=== PATIENT | female | born 1965 | race American Indian/Alaskan Native ===

== ENCOUNTER 2018-02-12 14:47 | Inpatient (IN) | payer OTHER ==
--- NOTE | 2018-02-12 15:12 | C.PDOC ---
History Of Present Illness POOR HISTORIAN 52-YEAR-OLD FEMALE, PRESENTS TO THE EMERGENCY DEPARTMENT WITH COMPLAINTS OF NEW ONSET HEMETEMESIS SINCE THIS MORNING. +BRB HO "FLUID IN MY STOMACH" SP DRAINAGE @ [facility] [place] "SOMETIME THIS MONTH". HO R LEG DVT, +ANTICOAG. CO PERSIST NAUSEA. DENIES PRIOR HO GI BLEED. ESRD S/P HD 02/10 ROS LIMITED EXAM MOD DIST NONTOXIC HEENT NO PALLOR ABD NEG EXT CHRONIC R LEG SWELLING; L FOOT TRANSMETATARSAL AMPUTATION REMAINDER NEG Time Seen by Provider: 02/12/18 15:01 History Per: Patient History/Exam Limitations: clinical condition Current Symptoms Are (Timing): Still Present Past Medical History Reviewed: Historical Data, Nursing Documentation, Vital Signs Vital Signs: Last Vital Signs Temp 98 F 02/12/18 15:01 Pulse 83 02/12/18 15:01 Resp 18 02/12/18 15:01 BP 207/77 H 02/12/18 15:01 Pulse Ox 98 02/12/18 15:01 Family History: States: No Known Family Hx Review Of Systems Review Of Systems: ROS cannot be obtained secondary to pt's inabilty to answer questions. Physical Exam - Physical Exam Appears: Non-toxic, In Acute Distress (MOD DIST) Skin: Warm, Dry, No Pale Head: Atraumatic, Normacephalic Eye(s): bilateral: Normal Inspection, PERRL Nose: Normal Lips: Normal Appearing Neck: Normal ROM Chest: Symmetrical Cardiovascular: Rhythm Regular, No Murmur Respiratory: Normal Breath Sounds, No Accessory Muscle Use Gastrointestinal/Abdominal: Soft, No Tenderness, No Organomegaly, No Mass, No Distention, No Guarding, No Rebound Extremity: No Pedal Edema, No Deformity, Other ( CHRONIC R LEG SWELLING; L FOOT TRANSMETATARSAL AMPUTATION) Pulses: Left Dorsalis Pedis: Normal, Right Dorsalis Pedis: Normal Neurological/Psych: Oriented x3, Normal Speech ED Course And Treatment - Laboratory Results Result Diagrams: 02/12/18 16:18 02/12/18 16:18 Progress - Re-Evaluation Re-evaluation Note: 02/12/18 15:10 d/w dr yakov berg AWARE OF ER FINDINGS WILL ADMIT. LABS PENDING. 02/12/18 16:28 NO RECUR GI BLEED SINCE PRIOR EVAL. CO BREAKTHROUGH PAIN, DUE TO METHADONE. VSS. - Data Reviewed Data Reviewed: Lab, Diagnostic imaging, EKG, Old records Disposition Counseled Patient/Family Regarding: Studies Performed, Diagnosis - Disposition Disposition: HOSPITALIZED Disposition Time: 17:03 Condition: STABLE - POA Present On Arrival: None - Clinical Impression Clinical Impression: Gastrointestinal hemorrhage, ESRD (end stage renal disease) - Scribe Statement The provider has reviewed the documentation as recorded by the Scribe (Raphael Casey) All medical record entries made by the Scribe were at my direction and personally dictated by me. I have reviewed the chart and agree that the record accurately reflects my personal performance of the history, physical exam, medical decision making, and the department course for this patient. I have also personally directed, reviewed, and agree with the discharge instructions and disposition. Decision To Admit - Pt Status Changed To: Hospital Disposition Of: Inpatient - Admit Certification Admit to Inpatient:: After my assessment, the patient will require hospitalization for at least two midnights. This is because of the severity of symptoms shown, intensity of services needed, and/or the medical risk in this patient being treated as an outpatient. - InPatient: Physician Admission Certification: I certify that this patient requires 2 or more midnights of care for the following reason:: SEE NOTE - . Bed Request Type: Telemetry Admitting Physician: Jenna Berg Patient Diagnosis: Gastrointestinal hemorrhage, ESRD (end stage renal disease)
[2018-02-12] MEDS ORDERED: Pantoprazole 80 MG in Sodium Chloride 0.9% 100 ML IV STA (15:16)
[2018-02-12 16:22] LABS: BASO % 0.3 % (0.0-2.0); EOS % 0.1 % (0.0-4.0); HEMOGLOBIN 10.1 g/dL (11.0-16.0); LYMPH # 0.8 K/uL (1.0-4.3); LYMPH % 8.3 % (20.0-40.0); MEAN CELL VOLUME 94.6 fL (81.0-99.0); MEAN CORPUSCULAR HEMOGLOBIN 30.7 pg (27.0-31.0); MEAN CORPUSCULAR HGB CONC 32.5 g/dL (33.0-37.0); MEAN PLATELET VOLUME 7.6 fL (7.2-11.7); MONO # 0.4 K/uL (0.0-0.8); MONO % 4.2 % (0.0-10.0); NEUT # 8.6 K/uL (1.8-7.0); NEUT % 87.1 % (50.0-75.0); NRBC % 0.3 % (0.0-2.0); PLATELET COUNT 295 K/uL (130-400); RBC 3.28 Mil/uL (3.80-5.20); WHITE BLOOD COUNT 9.9 K/uL (4.8-10.8)
[2018-02-12 16:35] LABS: ALB/GLOB RATIO 0.9 (1.0-2.1); CALCIUM 9.1 mg/dl (8.6-10.4)
[2018-02-12 17:12] LABS: BANDS 1 % (0-2); LYMPHOCYTE 8 % (20-40); MONOCYTE 1 % (0-10); NEUTROPHIL 90 % (50-75); PLATELET ESTIMATE NORMAL (NORMAL); TOTAL CELLS COUNTED 100
[2018-02-12 17:14] LABS: MICROCYTOSIS SLIGHT; POLYCHROMIC SLIGHT
[2018-02-12 17:15] LABS: HYPOCHROMIC SLIGHT
[2018-02-12] MEDS ORDERED: Labetalol 25mg/5ml Syringe IVP STA (17:47)
[2018-02-12] MEDS ORDERED: Morphine 4 MG/ML VIAL ONE (17:53)
[2018-02-12] MEDS ORDERED: Labetalol 25mg/5ml Syringe ONE (17:53)
--- NOTE | 2018-02-12 17:57 | RAD ---
PROCEDURE: CHEST RADIOGRAPH, 1 VIEW HISTORY: GI Bleeding COMPARISON: None available. FINDINGS: LUNGS: Mixed alveolar and interstitial infiltrates are identified bilaterally with alveolitis is suspected at the medial right base. No definite left-sided alveolitis. Interstitial markings are diffusely increased as well. PLEURA: No pneumothorax bilaterally. Trace right pleural effusion suggested. No left pleural effusion. CARDIOVASCULAR: Post CABG changes suggestive with cardiac size upper limits normal. Pulmonary vascular congestion is suspected and CHF is felt to present. OSSEOUS STRUCTURES: No significant abnormalities. VISUALIZED UPPER ABDOMEN: Normal. OTHER FINDINGS: None. IMPRESSION: Findings suspicious for active CHF with medial basilar alveolitis in question at the right base. Trace right pleural effusion suggested.
--- NOTE | 2018-02-12 18:38 | CP.PCM.HP ---
Past Patient History - Past Social History Smoking Status: Current Some Days Smoker - CARDIAC Hx Heart Attack: Yes Hx Hypertension: Yes Hx Peripheral Vascular Disease: Yes - PULMONARY Hx Chronic Obstructive Pulmonary Disease (COPD): Yes - RENAL Type of Dialysis Access: left hand fistula Date of Last Dialysis Treatment: 02/10/18 - ENDOCRINE/METABOLIC Hx Diabetes Mellitus Type 1: Yes - MUSCULOSKELETAL/RHEUMATOLOGICAL Hx Osteomyelitis: Yes - GASTROINTESTINAL Hx Gastroesophageal Reflux: Yes - PSYCHIATRIC Hx Substance Use: Yes - SURGICAL HISTORY Hx Amputation: Yes Other/Comment: left toes amputation - ANESTHESIA Hx Anesthesia: Yes Hx Anesthesia Reactions: No Hx Malignant Hyperthermia: No Meds Allergies/Adverse Reactions: Allergies Allergy/AdvReac Type Severity Reaction Status Date / Time No Known Allergies Allergy Unverified 02/12/18 15:13 Physical Exam - Constitutional Appears: Well - Head Exam Head Exam: ATRAUMATIC, NORMAL INSPECTION, NORMOCEPHALIC - Eye Exam Eye Exam: EOMI, Normal appearance, PERRL Pupil Exam: NORMAL ACCOMODATION, PERRL - ENT Exam ENT Exam: Mucous Membranes Moist, Normal Exam - Neck Exam Neck exam: Positive for: Normal Inspection - Respiratory Exam Respiratory Exam: Decreased Breath Sounds - Cardiovascular Exam Cardiovascular Exam: REGULAR RHYTHM, +S1, +S2 - GI/Abdominal Exam GI & Abdominal Exam: Diminished Bowel Sounds, Soft - Rectal Exam Rectal Exam: Deferred Results - Vital Signs Recent Vital Signs: Last Vital Signs Temp 98 F 02/12/18 17:58 Pulse 87 02/12/18 17:58 Resp 18 02/12/18 17:58 BP 202/85 H 02/12/18 17:58 Pulse Ox 98 02/12/18 17:58 - Labs Result Diagrams: 02/12/18 16:18 02/12/18 16:18 Labs: Laboratory Results - last 24 hr 02/12/18 02/12/18 02/12/18 14:52 16:18 16:18 WBC 9.9 RBC 3.28 L Hgb 10.1 L Hct 31.1 L MCV 94.6 MCH 30.7 MCHC 32.5 L RDW 20.0 H Plt Count 295 MPV 7.6 Neut % (Auto) 87.1 H Lymph % (Auto) 8.3 L [place] % (Auto) 4.2 Eos % (Auto) 0.1 Baso % (Auto) 0.3 Neut # (Auto) 8.6 H Lymph # (Auto) 0.8 L [place] # (Auto) 0.4 Eos # (Auto) 0.0 Baso # (Auto) 0.0 Neutrophils % (Manual) 90 H Band Neutrophils % 1 Lymphocytes % (Manual) 8 L Monocytes % (Manual) 1 Platelet Estimate Normal Polychromasia Slight Hypochromasia (manual) Slight Microcytosis (manual) Slight PT 11.0 INR 1.0 APTT 41 H Sodium Potassium Chloride Carbon Dioxide Anion Gap BUN Creatinine Est GFR ( Amer) Est GFR (Non-Af Amer) POC Glucose (mg/dL) 135 H Random Glucose Calcium Total Bilirubin AST ALT Alkaline Phosphatase Total Protein Albumin Globulin Albumin/Globulin Ratio Blood Type Antibody Screen 02/12/18 02/12/18 16:18 16:18 WBC RBC Hgb Hct MCV MCH MCHC RDW Plt Count MPV Neut % (Auto) Lymph % (Auto) [place] % (Auto) Eos % (Auto) Baso % (Auto) Neut # (Auto) Lymph # (Auto) [place] # (Auto) Eos # (Auto) Baso # (Auto) Neutrophils % (Manual) Band Neutrophils % Lymphocytes % (Manual) Monocytes % (Manual) Platelet Estimate Polychromasia Hypochromasia (manual) Microcytosis (manual) PT INR APTT Sodium 140 Potassium 5.4 H Chloride 94 L Carbon Dioxide 29 Anion Gap 22 H BUN 55 H Creatinine 7.1 H Est GFR ( Amer) 7 Est GFR (Non-Af Amer) 6 POC Glucose (mg/dL) Random Glucose 144 H Calcium 9.1 Total Bilirubin 0.7 AST 33 ALT 18 Alkaline Phosphatase 240 H Total Protein 8.5 H Albumin 4.0 Globulin 4.5 H Albumin/Globulin Ratio 0.9 L Blood Type O POSITIVE Antibody Screen Negative
[2018-02-12] MEDS ORDERED: Albuterol-Ipratrop 3 mg / 0.5 (3 ml) UD IH PRN (19:49)
[2018-02-12] MEDS ORDERED: Oxycodone/Acetaminophen 5/325 mg Tab PO PRN (19:49)
[2018-02-13] MEDS ORDERED: Dextrose 50% SYRINGE Inj (50 ml) IV STA (06:25)
--- NOTE | 2018-02-13 09:13 | CP.PCM.CON ---
<Jorge A France - Last Filed: 02/13/18 09:26> History of Present Illness - History of Present Illness History of Present Illness: Subjective: Patient is a 52 year old female with a past medical history of hypertension, diabetes, CVA, CAD, ESRD on HD, DVT, and tobacco abuse who was admitted for evaluation and treatment of a potential GI bleed. Patient states she experienced blood in her sputum when coughing which began yesterday morning with no specific provoking event. States this is the first time the aforementioned event has occurred. Also states she had associated LLQ abdominal pain which was characterized as being dull in nature. The pain radiated to the RLQ. Currently states all symptoms have resolved since admission. [facility]. Admits to baseline SOB on exertion. Denies colonoscopy/endoscopy. Denies fever, chills, dysphagia, chest pain, abdominal pain, N/V, blood per rectum, dark stools, diarrhea, constipation, and urinary symptoms. Past medical history: hypertension, diabetes, CVA, CAD, ESRD on HD, DVT,and tobacco abuse Past surgical history: CABG, L foot digit amputation Allergies: NKDA Family history: mother, father- diabetes, denies GI malignancies Social History: denies ETOH use, former tobacco user, quit 4 years ago, smoked 1 ppd for 30 years, former illicit drug use- IV heroin, no use in 8 years Physical Examination: - Constitutional Appears: NAD - Head Exam Head Exam: NORMAL INSPECTION - Eye Exam Eye Exam: EOMI - ENT Exam ENT Exam: Mucous Membranes Moist - Respiratory Exam Respiratory Exam: Decreased Breath Sounds - Cardiovascular Exam Cardiovascular Exam: +S1, +S2 - GI/Abdominal Exam GI & Abdominal Exam: Normal Bowel Sounds, soft, NTTP, absent: guarding, rigidity , rebound tenderness, organomegaly - Rectal Exam Rectal Exam: soft brown stool felt, no bright red blood, the soler of the mucosa are smooth - Extremities Exam Extremities exam: left upper extremity fistula, wound on dorsal aspect of right foot - Neurological Exam Neurological exam: Alert, Oriented x3 - Skin Skin Exam: Dry, warm Assessment and Plan: Patient is a 52 year old female with a past medical history of hypertension, diabetes, CVA, CAD, ESRD on HD, DVT, and tobacco abuse who was admitted for evaluation and treatment of a potential GI bleed. CXR reviewed and appreciated. Findings suspicious for active CHF with medial basilar alveolitis in question at the right base and trace right pleural effusion. Gastric occult test noted to be positive. Abdominal Pain Hemoptysis Anemia Hx of Htn Hx of DM Hx of CVA Hx of CAD HX of ESRD on HD - No acute GI intervention - Patient started on clear liquid diet, will advance diet if H/H remains stable - Continue on pantoprazole - Hemoglobin 10.1, monitor closely, recommend transfusion with pRBCS if Hgb < 7 Thank you for the opportunity for participating in the care of this patient. Patient seen, case discussed with, and plan approved by attending physician, Dr. Powell. Past Patient History - Past Medical History & Family History Past Medical History?: Yes - Past Social History Smoking Status: Former Smoker - CARDIAC Hx Cardiac Disorders: Yes Hx Heart Attack: Yes Hx Hypertension: Yes Hx Peripheral Vascular Disease: Yes - PULMONARY Hx Respiratory Disorders: Yes Hx Chronic Obstructive Pulmonary Disease (COPD): Yes - NEUROLOGICAL Hx Neurological Disorder: No - HEENT Hx HEENT Problems: No - RENAL Hx Chronic Kidney Disease: Yes Hx Dialysis: Yes Type of Dialysis Access: LAV shunt Date of Last Dialysis Treatment: 02/10/18 - ENDOCRINE/METABOLIC Hx Endocrine Disorders: Yes Hx Diabetes Mellitus Type 1: Yes - HEMATOLOGICAL/ONCOLOGICAL Hx Blood Disorders: No - INTEGUMENTARY Hx Dermatological Problems: No - MUSCULOSKELETAL/RHEUMATOLOGICAL Hx Musculoskeletal Disorders: Yes Hx Falls: No Hx Osteomyelitis: Yes (left toe amputations) - GASTROINTESTINAL Hx Gastrointestinal Disorders: Yes Hx Gastroesophageal Reflux: Yes - GENITOURINARY/GYNECOLOGICAL Hx Genitourinary Disorders: No - PSYCHIATRIC Hx Psychophysiologic Disorder: Yes Hx Substance Use: Yes - SURGICAL HISTORY Hx Surgeries: Yes Hx Amputation: Yes Other/Comment: left toes amputation - ANESTHESIA Hx Anesthesia: Yes Hx Anesthesia Reactions: No Hx Malignant Hyperthermia: No Has any member of the family had a problem w/ anesthesia?: No Meds Allergies/Adverse Reactions: Allergies Allergy/AdvReac Type Severity Reaction Status Date / Time No Known Allergies Allergy Unverified 02/12/18 15:13 - Medications Medications: Current Medications Albuterol/Ipratropium (Duoneb 3 Mg/0.5 Mg (3 Ml) Ud) 3 ml IH RQ4 PRN PRN Reason: Shortness of Breath Carvedilol (Coreg) 12.5 mg PO DAILY [facility] Ferrous Sulfate (Feosol) 325 mg PO DAILY [facility] Hydralazine HCl (Apresoline) 100 mg PO DAILY [facility] Levetiracetam (Keppra) 500 mg PO Q12 [facility] Last Admin: 02/12/18 21:18 Dose: 500 mg Oxycodone/Acetaminophen (Percocet 5/325 Mg Tab) 1 tab PO Q6 PRN PRN Reason: Pain, severe (8-10) Stop: 02/15/18 19:50 Pantoprazole Sodium (Protonix Ec Tab) 40 mg PO DAILY [facility] Rosuvastatin Calcium (Crestor) 40 mg PO HS [facility] Sevelamer Carbonate (Renvela) 800 mg PO DAILY [facility] Vitamin B Complex/Vit C/Folic Acid (Nephro-Andrew) 1 tab PO DAILY [facility] Results - Vital Signs Recent Vital Signs: Last Vital Signs Temp 98.5 F 02/13/18 07:05 Pulse 80 02/13/18 07:05 Resp 18 02/13/18 07:05 BP 166/63 H 02/13/18 07:05 Pulse Ox 97 02/13/18 07:05 - Labs Result Diagrams: 02/12/18 16:18 02/12/18 16:18 Labs: Laboratory Results - last 24 hr 02/12/18 02/12/18 02/12/18 14:52 16:18 16:18 WBC 9.9 RBC 3.28 L Hgb 10.1 L Hct 31.1 L MCV 94.6 MCH 30.7 MCHC 32.5 L RDW 20.0 H Plt Count 295 MPV 7.6 Neut % (Auto) 87.1 H Lymph % (Auto) 8.3 L [place] % (Auto) 4.2 Eos % (Auto) 0.1 Baso % (Auto) 0.3 Neut # (Auto) 8.6 H Lymph # (Auto) 0.8 L [place] # (Auto) 0.4 Eos # (Auto) 0.0 Baso # (Auto) 0.0 Neutrophils % (Manual) 90 H Band Neutrophils % 1 Lymphocytes % (Manual) 8 L Monocytes % (Manual) 1 Platelet Estimate Normal Polychromasia Slight Hypochromasia (manual) Slight Microcytosis (manual) Slight PT 11.0 INR 1.0 APTT 41 H Sodium Potassium Chloride Carbon Dioxide Anion Gap BUN Creatinine Est GFR ( Amer) Est GFR (Non-Af Amer) POC Glucose (mg/dL) 135 H Random Glucose Calcium Total Bilirubin AST ALT Alkaline Phosphatase Total Protein Albumin Globulin Albumin/Globulin Ratio Gastric Occult Blood Blood Type Antibody Screen 02/12/18 02/12/18 02/12/18 16:18 16:18 18:35 WBC RBC Hgb Hct MCV MCH MCHC RDW Plt Count MPV Neut % (Auto) Lymph % (Auto) [place] % (Auto) Eos % (Auto) Baso % (Auto) Neut # (Auto) Lymph # (Auto) [place] # (Auto) Eos # (Auto) Baso # (Auto) Neutrophils % (Manual) Band Neutrophils % Lymphocytes % (Manual) Monocytes % (Manual) Platelet Estimate Polychromasia Hypochromasia (manual) Microcytosis (manual) PT INR APTT Sodium 140 Potassium 5.4 H Chloride 94 L Carbon Dioxide 29 Anion Gap 22 H BUN 55 H Creatinine 7.1 H Est GFR ( Amer) 7 Est GFR (Non-Af Amer) 6 POC Glucose (mg/dL) Random Glucose 144 H Calcium 9.1 Total Bilirubin 0.7 AST 33 ALT 18 Alkaline Phosphatase 240 H Total Protein 8.5 H Albumin 4.0 Globulin 4.5 H Albumin/Globulin Ratio 0.9 L Gastric Occult Blood Postive H Blood Type O POSITIVE Antibody Screen Negative 02/12/18 02/13/18 02/13/18 21:54 06:15 06:17 WBC RBC Hgb Hct MCV MCH MCHC RDW Plt Count MPV Neut % (Auto) Lymph % (Auto) [place] % (Auto) Eos % (Auto) Baso % (Auto) Neut # (Auto) Lymph # (Auto) [place] # (Auto) Eos # (Auto) Baso # (Auto) Neutrophils % (Manual) Band Neutrophils % Lymphocytes % (Manual) Monocytes % (Manual) Platelet Estimate Polychromasia Hypochromasia (manual) Microcytosis (manual) PT INR APTT Sodium Potassium Chloride Carbon Dioxide Anion Gap BUN Creatinine Est GFR ( Amer) Est GFR (Non-Af Amer) POC Glucose (mg/dL) 104 61 L 53 L Random Glucose Calcium Total Bilirubin AST ALT Alkaline Phosphatase Total Protein Albumin Globulin Albumin/Globulin Ratio Gastric Occult Blood Blood Type Antibody Screen 02/13/18 06:53 WBC RBC Hgb Hct MCV MCH MCHC RDW Plt Count MPV Neut % (Auto) Lymph % (Auto) [place] % (Auto) Eos % (Auto) Baso % (Auto) Neut # (Auto) Lymph # (Auto) [place] # (Auto) Eos # (Auto) Baso # (Auto) Neutrophils % (Manual) Band Neutrophils % Lymphocytes % (Manual) Monocytes % (Manual) Platelet Estimate Polychromasia Hypochromasia (manual) Microcytosis (manual) PT INR APTT Sodium Potassium Chloride Carbon Dioxide Anion Gap BUN Creatinine Est GFR ( Amer) Est GFR (Non-Af Amer) POC Glucose (mg/dL) 149 H Random Glucose Calcium Total Bilirubin AST ALT Alkaline Phosphatase Total Protein Albumin Globulin Albumin/Globulin Ratio Gastric Occult Blood Blood Type Antibody Screen <AndreDonta Israel - Last Filed: 02/13/18 11:01> Meds - Medications Medications: Current Medications Albuterol/Ipratropium (Duoneb 3 Mg/0.5 Mg (3 Ml) Ud) 3 ml IH RQ4 PRN PRN Reason: Shortness of Breath Carvedilol (Coreg) 12.5 mg PO DAILY [facility] Last Admin: 02/13/18 10:36 Dose: 12.5 mg Epoetin Dami (Procrit) 4,000 unit IV TTS ONE Stop: 02/13/18 10:23 Ferrous Sulfate (Feosol) 325 mg PO DAILY [facility] Last Admin: 02/13/18 10:36 Dose: 325 mg Hydralazine HCl (Apresoline) 100 mg PO DAILY [facility] Last Admin: 02/13/18 10:36 Dose: 100 mg Levetiracetam (Keppra) 500 mg PO Q12 [facility] Last Admin: 02/13/18 10:36 Dose: 500 mg Oxycodone/Acetaminophen (Percocet 5/325 Mg Tab) 1 tab PO Q6 PRN PRN Reason: Pain, severe (8-10) Stop: 02/15/18 19:50 Pantoprazole Sodium (Protonix Ec Tab) 40 mg PO DAILY [facility] Last Admin: 02/13/18 10:36 Dose: 40 mg Rosuvastatin Calcium (Crestor) 40 mg PO HS [facility] Sevelamer Carbonate (Renvela) 800 mg PO DAILY [facility] Last Admin: 02/13/18 10:36 Dose: 800 mg Vitamin B Complex/Vit C/Folic Acid (Nephro-Andrew) 1 tab PO DAILY [facility] Last Admin: 02/13/18 10:36 Dose: 1 tab Results - Vital Signs Recent Vital Signs: Last Vital Signs Temp 98.5 F 02/13/18 07:05 Pulse 80 02/13/18 07:05 Resp 18 02/13/18 07:05 BP 166/63 H 02/13/18 10:36 Pulse Ox 97 02/13/18 07:05 - Labs Result Diagrams: 02/12/18 16:18 02/12/18 16:18 Labs: Laboratory Results - last 24 hr 02/12/18 02/12/18 02/12/18 14:52 16:18 16:18 WBC 9.9 RBC 3.28 L Hgb 10.1 L Hct 31.1 L MCV 94.6 MCH 30.7 MCHC 32.5 L RDW 20.0 H Plt Count 295 MPV 7.6 Neut % (Auto) 87.1 H Lymph % (Auto) 8.3 L [place] % (Auto) 4.2 Eos % (Auto) 0.1 Baso % (Auto) 0.3 Neut # (Auto) 8.6 H Lymph # (Auto) 0.8 L [place] # (Auto) 0.4 Eos # (Auto) 0.0 Baso # (Auto) 0.0 Neutrophils % (Manual) 90 H Band Neutrophils % 1 Lymphocytes % (Manual) 8 L Monocytes % (Manual) 1 Platelet Estimate Normal Polychromasia Slight Hypochromasia (manual) Slight Microcytosis (manual) Slight PT 11.0 INR 1.0 APTT 41 H Sodium Potassium Chloride Carbon Dioxide Anion Gap BUN Creatinine Est GFR ( Amer) Est GFR (Non-Af Amer) POC Glucose (mg/dL) 135 H Random Glucose Calcium Total Bilirubin AST ALT Alkaline Phosphatase Total Protein Albumin Globulin Albumin/Globulin Ratio Gastric Occult Blood Blood Type Antibody Screen 02/12/18 02/12/18 02/12/18 16:18 16:18 18:35 WBC RBC Hgb Hct MCV MCH MCHC RDW Plt Count MPV Neut % (Auto) Lymph % (Auto) [place] % (Auto) Eos % (Auto) Baso % (Auto) Neut # (Auto) Lymph # (Auto) [place] # (Auto) Eos # (Auto) Baso # (Auto) Neutrophils % (Manual) Band Neutrophils % Lymphocytes % (Manual) Monocytes % (Manual) Platelet Estimate Polychromasia Hypochromasia (manual) Microcytosis (manual) PT INR APTT Sodium 140 Potassium 5.4 H Chloride 94 L Carbon Dioxide 29 Anion Gap 22 H BUN 55 H Creatinine 7.1 H Est GFR ( Amer) 7 Est GFR (Non-Af Amer) 6 POC Glucose (mg/dL) Random Glucose 144 H Calcium 9.1 Total Bilirubin 0.7 AST 33 ALT 18 Alkaline Phosphatase 240 H Total Protein 8.5 H Albumin 4.0 Globulin 4.5 H Albumin/Globulin Ratio 0.9 L Gastric Occult Blood Postive H Blood Type O POSITIVE Antibody Screen Negative 02/12/18 02/13/18 02/13/18 21:54 06:15 06:17 WBC RBC Hgb Hct MCV MCH MCHC RDW Plt Count MPV Neut % (Auto) Lymph % (Auto) [place] % (Auto) Eos % (Auto) Baso % (Auto) Neut # (Auto) Lymph # (Auto) [place] # (Auto) Eos # (Auto) Baso # (Auto) Neutrophils % (Manual) Band Neutrophils % Lymphocytes % (Manual) Monocytes % (Manual) Platelet Estimate Polychromasia Hypochromasia (manual) Microcytosis (manual) PT INR APTT Sodium Potassium Chloride Carbon Dioxide Anion Gap BUN Creatinine Est GFR ( Amer) Est GFR (Non-Af Amer) POC Glucose (mg/dL) 104 61 L 53 L Random Glucose Calcium Total Bilirubin AST ALT Alkaline Phosphatase Total Protein Albumin Globulin Albumin/Globulin Ratio Gastric Occult Blood Blood Type Antibody Screen 02/13/18 06:53 WBC RBC Hgb Hct MCV MCH MCHC RDW Plt Count MPV Neut % (Auto) Lymph % (Auto) [place] % (Auto) Eos % (Auto) Baso % (Auto) Neut # (Auto) Lymph # (Auto) [place] # (Auto) Eos # (Auto) Baso # (Auto) Neutrophils % (Manual) Band Neutrophils % Lymphocytes % (Manual) Monocytes % (Manual) Platelet Estimate Polychromasia Hypochromasia (manual) Microcytosis (manual) PT INR APTT Sodium Potassium Chloride Carbon Dioxide Anion Gap BUN Creatinine Est GFR ( Amer) Est GFR (Non-Af Amer) POC Glucose (mg/dL) 149 H Random Glucose Calcium Total Bilirubin AST ALT Alkaline Phosphatase Total Protein Albumin Globulin Albumin/Globulin Ratio Gastric Occult Blood Blood Type Antibody Screen Attending/Attestation - Attestation I have personally seen and examined this patient.: Yes I have fully participated in the care of the patient.: Yes I have reviewed all pertinent clinical information: Yes Notes (Text): 02/13/18 10:56 I have seen and examined patient with GI fellow and medical unit secretary. Agree with above documentation with the following additions. In brief, this is a 52 year old female with history of ESRD on HD, CVA, DVT, DM who was sent from nursing facility for evaluation of hematemesis. On further questioning patient actually describes hemoptysis with three episdoes of coughing up fresh blood. During episode she also reports mild right sided abdominal pain but denies nausea, vomiting, fever/chills, diarrhea, or similar prior episodes. She does report nearly 50 pound weight loss over the past one year which has been unintentional. No recurrent episodes of hemoptysis since arrival to hospital. No prior endoscopic evaluation. 12 point review of systems performed, negative aside from mentioned above. ESRD on HD CVA Chronic anemia DM DVT Hemoptysis Weight loss - Liquid diet as tolerated - H/H stable, continue to monitor. Rectal exam performed today shows no palpable lesion, melena, or fresh blood in rectal vault. - Continue with PPI therapy - Suggest pulmonary evaluation given progressive unexplained weight loss, hemoptysis in patient with heavy cigarette smoking history - Patient would eventually benefit from endoscopic evaluation, though currently refusing any further intervention - Will continue to monitor patient clinical course
[2018-02-13] MEDS ORDERED: Pantoprazole 40 mg EC Tab PO SCH (10:00)
[2018-02-13] MEDS ORDERED: EPOETIN ALFA 4,000 UNIT/ML ML Dialysis IV ONE ×2 (10:22→12:15)
[2018-02-13] MEDS: Multivitamin Vitamin B Complex (Nephro-Vite) Tab PO SCH (10:36)
--- NOTE | 2018-02-13 11:18 | CP.PCM.CON ---
History of Present Illness - History of Present Illness History of Present Illness: Patient is a 52 year old female who was admitted for evaluation and treatment of a potential GI bleed. Patient states she experienced blood in her sputum when coughing which began yesterday morning with no specific provoking event. ID CONSULTED FOR THIS S . Admits to baseline SOB on exertion. Denies colonoscopy/endoscopy. Denies fever , chills, dysphagia, chest pain, abdominal pain, N/V, blood per rectum, dark stools, diarrhea, constipation, and urinary symptoms. Past medical history: hypertension, diabetes, CVA, CAD, ESRD on HD, DVT,and tobacco abuse Past surgical history: CABG, L foot digit amputation Allergies: NKDA Family history: mother, father- diabetes, denies GI malignancies Social History: denies ETOH use, former tobacco user, quit 4 years ago, smoked 1 ppd for 30 years, former illicit drug use- IV heroin, no use in 8 years Review of Systems - Review of Systems All systems: reviewed and no additional remarkable complaints except Past Patient History - Past Medical History & Family History Past Medical History?: Yes - Past Social History Smoking Status: Former Smoker - CARDIAC Hx Cardiac Disorders: Yes Hx Heart Attack: Yes Hx Hypertension: Yes Hx Peripheral Vascular Disease: Yes - PULMONARY Hx Respiratory Disorders: Yes Hx Chronic Obstructive Pulmonary Disease (COPD): Yes - NEUROLOGICAL Hx Neurological Disorder: No - HEENT Hx HEENT Problems: No - RENAL Hx Chronic Kidney Disease: Yes Hx Dialysis: Yes Type of Dialysis Access: LAV shunt Date of Last Dialysis Treatment: 02/10/18 - ENDOCRINE/METABOLIC Hx Endocrine Disorders: Yes Hx Diabetes Mellitus Type 1: Yes - HEMATOLOGICAL/ONCOLOGICAL Hx Blood Disorders: No - INTEGUMENTARY Hx Dermatological Problems: No - MUSCULOSKELETAL/RHEUMATOLOGICAL Hx Musculoskeletal Disorders: Yes Hx Falls: No Hx Osteomyelitis: Yes (left toe amputations) - GASTROINTESTINAL Hx Gastrointestinal Disorders: Yes Hx Gastroesophageal Reflux: Yes - GENITOURINARY/GYNECOLOGICAL Hx Genitourinary Disorders: No - PSYCHIATRIC Hx Psychophysiologic Disorder: Yes Hx Substance Use: Yes - SURGICAL HISTORY Hx Surgeries: Yes Hx Amputation: Yes Other/Comment: left toes amputation - ANESTHESIA Hx Anesthesia: Yes Hx Anesthesia Reactions: No Hx Malignant Hyperthermia: No Has any member of the family had a problem w/ anesthesia?: No Meds Allergies/Adverse Reactions: Allergies Allergy/AdvReac Type Severity Reaction Status Date / Time No Known Allergies Allergy Unverified 02/12/18 15:13 - Medications Medications: Current Medications Albuterol/Ipratropium (Duoneb 3 Mg/0.5 Mg (3 Ml) Ud) 3 ml IH RQ4 PRN PRN Reason: Shortness of Breath Carvedilol (Coreg) 12.5 mg PO DAILY [facility] Last Admin: 02/13/18 10:36 Dose: 12.5 mg Epoetin Dami (Procrit) 4,000 unit IV TTS ONE Stop: 02/13/18 10:23 Ferrous Sulfate (Feosol) 325 mg PO DAILY [facility] Last Admin: 02/13/18 10:36 Dose: 325 mg Hydralazine HCl (Apresoline) 100 mg PO DAILY [facility] Last Admin: 02/13/18 10:36 Dose: 100 mg Levetiracetam (Keppra) 500 mg PO Q12 [facility] Last Admin: 02/13/18 10:36 Dose: 500 mg Oxycodone/Acetaminophen (Percocet 5/325 Mg Tab) 1 tab PO Q6 PRN PRN Reason: Pain, severe (8-10) Stop: 02/15/18 19:50 Pantoprazole Sodium (Protonix Ec Tab) 40 mg PO DAILY [facility] Last Admin: 02/13/18 10:36 Dose: 40 mg Rosuvastatin Calcium (Crestor) 40 mg PO [facility] Sevelamer Carbonate (Renvela) 800 mg PO DAILY [facility] Last Admin: 02/13/18 10:36 Dose: 800 mg Vitamin B Complex/Vit C/Folic Acid (Nephro-Andrew) 1 tab PO DAILY [facility] Last Admin: 02/13/18 10:36 Dose: 1 tab Physical Exam - Constitutional Appears: Non-toxic, Chronically Ill - Head Exam Head Exam: NORMOCEPHALIC - Eye Exam Eye Exam: PERRL - ENT Exam ENT Exam: Mucous Membranes Dry, Normal Oropharynx - Neck Exam Neck exam: Negative for: Lymphadenopathy - Respiratory Exam Respiratory Exam: Decreased Breath Sounds - Cardiovascular Exam Cardiovascular Exam: REGULAR RHYTHM - GI/Abdominal Exam GI & Abdominal Exam: Diminished Bowel Sounds - Rectal Exam Rectal Exam: Deferred - Exam Exam: NORMAL INSPECTION - Extremities Exam Extremities exam: Negative for: pedal edema Additional comments: LEFT TMA - Back Exam Back exam: absent: CVA tenderness (L), CVA tenderness (R) - Neurological Exam Neurological exam: Alert, CN II-XII Intact, Oriented x3, Reflexes Normal - Psychiatric Exam Psychiatric exam: Normal Mood - Skin Skin Exam: Dry Results - Vital Signs Recent Vital Signs: Last Vital Signs Temp 98.5 F 02/13/18 07:05 Pulse 80 02/13/18 07:05 Resp 18 02/13/18 07:05 BP 166/63 H 02/13/18 10:36 Pulse Ox 97 02/13/18 07:05 - Labs Result Diagrams: 02/12/18 16:18 02/12/18 16:18 Labs: Laboratory Results - last 24 hr 02/12/18 02/12/18 02/12/18 14:52 16:18 16:18 WBC 9.9 RBC 3.28 L Hgb 10.1 L Hct 31.1 L MCV 94.6 MCH 30.7 MCHC 32.5 L RDW 20.0 H Plt Count 295 MPV 7.6 Neut % (Auto) 87.1 H Lymph % (Auto) 8.3 L Canadian % (Auto) 4.2 Eos % (Auto) 0.1 Baso % (Auto) 0.3 Neut # (Auto) 8.6 H Lymph # (Auto) 0.8 L Canadian # (Auto) 0.4 Eos # (Auto) 0.0 Baso # (Auto) 0.0 Neutrophils % (Manual) 90 H Band Neutrophils % 1 Lymphocytes % (Manual) 8 L Monocytes % (Manual) 1 Platelet Estimate Normal Polychromasia Slight Hypochromasia (manual) Slight Microcytosis (manual) Slight PT 11.0 INR 1.0 APTT 41 H Sodium Potassium Chloride Carbon Dioxide Anion Gap BUN Creatinine Est GFR ( Amer) Est GFR (Non-Af Amer) POC Glucose (mg/dL) 135 H Random Glucose Calcium Total Bilirubin AST ALT Alkaline Phosphatase Total Protein Albumin Globulin Albumin/Globulin Ratio Gastric Occult Blood Blood Type Antibody Screen 02/12/18 02/12/18 02/12/18 16:18 16:18 18:35 WBC RBC Hgb Hct MCV MCH MCHC RDW Plt Count MPV Neut % (Auto) Lymph % (Auto) Canadian % (Auto) Eos % (Auto) Baso % (Auto) Neut # (Auto) Lymph # (Auto) Canadian # (Auto) Eos # (Auto) Baso # (Auto) Neutrophils % (Manual) Band Neutrophils % Lymphocytes % (Manual) Monocytes % (Manual) Platelet Estimate Polychromasia Hypochromasia (manual) Microcytosis (manual) PT INR APTT Sodium 140 Potassium 5.4 H Chloride 94 L Carbon Dioxide 29 Anion Gap 22 H BUN 55 H Creatinine 7.1 H Est GFR ( Amer) 7 Est GFR (Non-Af Amer) 6 POC Glucose (mg/dL) Random Glucose 144 H Calcium 9.1 Total Bilirubin 0.7 AST 33 ALT 18 Alkaline Phosphatase 240 H Total Protein 8.5 H Albumin 4.0 Globulin 4.5 H Albumin/Globulin Ratio 0.9 L Gastric Occult Blood Postive H Blood Type O POSITIVE Antibody Screen Negative 02/12/18 02/13/18 02/13/18 21:54 06:15 06:17 WBC RBC Hgb Hct MCV MCH MCHC RDW Plt Count MPV Neut % (Auto) Lymph % (Auto) Canadian % (Auto) Eos % (Auto) Baso % (Auto) Neut # (Auto) Lymph # (Auto) Canadian # (Auto) Eos # (Auto) Baso # (Auto) Neutrophils % (Manual) Band Neutrophils % Lymphocytes % (Manual) Monocytes % (Manual) Platelet Estimate Polychromasia Hypochromasia (manual) Microcytosis (manual) PT INR APTT Sodium Potassium Chloride Carbon Dioxide Anion Gap BUN Creatinine Est GFR ( Amer) Est GFR (Non-Af Amer) POC Glucose (mg/dL) 104 61 L 53 L Random Glucose Calcium Total Bilirubin AST ALT Alkaline Phosphatase Total Protein Albumin Globulin Albumin/Globulin Ratio Gastric Occult Blood Blood Type Antibody Screen 02/13/18 06:53 WBC RBC Hgb Hct MCV MCH MCHC RDW Plt Count MPV Neut % (Auto) Lymph % (Auto) [place] % (Auto) Eos % (Auto) Baso % (Auto) Neut # (Auto) Lymph # (Auto) [place] # (Auto) Eos # (Auto) Baso # (Auto) Neutrophils % (Manual) Band Neutrophils % Lymphocytes % (Manual) Monocytes % (Manual) Platelet Estimate Polychromasia Hypochromasia (manual) Microcytosis (manual) PT INR APTT Sodium Potassium Chloride Carbon Dioxide Anion Gap BUN Creatinine Est GFR ( Amer) Est GFR (Non-Af Amer) POC Glucose (mg/dL) 149 H Random Glucose Calcium Total Bilirubin AST ALT Alkaline Phosphatase Total Protein Albumin Globulin Albumin/Globulin Ratio Gastric Occult Blood Blood Type Antibody Screen Assessment & Plan (1) ESRD (end stage renal disease) Status: Acute (2) Gastrointestinal hemorrhage Status: Acute - Assessment and Plan (Free Text) Assessment: AWAIT CULTURES WILL REVIEW CXR CONSIDER PULM EVAL
--- NOTE | 2018-02-13 11:31 | CARD ---
APPROVED REPORT EKG Measurement Heart [id number] <Conclusion> Normal sinus rhythm Possible Left atrial enlargement Left ventricular hypertrophy Abnormal ECG
--- NOTE | 2018-02-13 11:55 | CP.PCM.PN ---
Subjective - Date & Time of Evaluation Date of Evaluation: 02/13/18 Time of Evaluation: 11:53 - Subjective Subjective: PT SEEN BY DR. Jamshid CHAVIS. [employer] ARCHITECT REQUESTED BY DR. CHAVIS TO ORDER METHADONE FOR THE PT SHE TAKES IT DAILY. PER DR. CHAVIS PT TO TAKE METHADONE 10 MG PO DAILY, STARTING TODAY. NO FURTHER ORDERS. Objective - Vital Signs/Intake and Output Vital Signs (last 24 hours): Temp Pulse Resp BP Pulse Ox 98 F 77 20 189/80 H 100 02/13/18 11:25 02/13/18 11:25 02/13/18 11:25 02/13/18 11:40 02/13/18 11:25 - Medications Medications: Current Medications Albuterol/Ipratropium (Duoneb 3 Mg/0.5 Mg (3 Ml) Ud) 3 ml IH RQ4 PRN PRN Reason: Shortness of Breath Carvedilol (Coreg) 12.5 mg PO DAILY [facility] Last Admin: 02/13/18 10:36 Dose: 12.5 mg Ferrous Sulfate (Feosol) 325 mg PO DAILY [facility] Last Admin: 02/13/18 10:36 Dose: 325 mg Hydralazine HCl (Apresoline) 100 mg PO DAILY [facility] Last Admin: 02/13/18 10:36 Dose: 100 mg Azithromycin (Zithromax 500mg In Ns Addvantage) 500 mg in 250 mls @ 167 mls/hr IVPB Q24H [facility] PRN Reason: Protocol Levetiracetam (Keppra) 500 mg PO Q12 [facility] Last Admin: 02/13/18 10:36 Dose: 500 mg Oxycodone/Acetaminophen (Percocet 5/325 Mg Tab) 1 tab PO Q6 PRN PRN Reason: Pain, severe (8-10) Stop: 02/15/18 19:50 Pantoprazole Sodium (Protonix Ec Tab) 40 mg PO DAILY [facility] Last Admin: 02/13/18 10:36 Dose: 40 mg Rosuvastatin Calcium (Crestor) 40 mg PO HS [facility] Rosuvastatin Calcium (Crestor) 5 mg PO HS [facility] Sevelamer Carbonate (Renvela) 800 mg PO DAILY [facility] Last Admin: 02/13/18 10:36 Dose: 800 mg Vitamin B Complex/Vit C/Folic Acid (Nephro-Andrew) 1 tab PO DAILY [facility] Last Admin: 02/13/18 10:36 Dose: 1 tab - Labs Labs: 02/12/18 16:18 02/12/18 16:18 PT 11.0 SECONDS (9.7-12.2) 02/12/18 16:18 INR 1.0 02/12/18 16:18 APTT 41 SECONDS (21-34) H 02/12/18 16:18
[2018-02-13 12:03] LABS: BASO # 0.1 K/uL (0.0-0.2); BASO % 0.7 % (0.0-2.0); EOS % 0.5 % (0.0-4.0); LYMPH # 0.8 K/uL (1.0-4.3); LYMPH % 11.3 % (20.0-40.0); MEAN CELL VOLUME 94.1 fL (81.0-99.0); MEAN CORPUSCULAR HEMOGLOBIN 31.3 pg (27.0-31.0); MEAN CORPUSCULAR HGB CONC 33.2 g/dL (33.0-37.0); MEAN PLATELET VOLUME 7.6 fL (7.2-11.7); MONO # 0.4 K/uL (0.0-0.8); MONO % 6.4 % (0.0-10.0); NEUT # 5.6 K/uL (1.8-7.0); NEUT % 81.1 % (50.0-75.0); RBC 2.3 Mil/uL (3.80-5.20); RED CELL DISTRIBUTION WIDTH 20.5 % (11.5-14.5)
[2018-02-13 12:08] LABS: HEMOGLOBIN 7.2 g/dL (11.0-16.0)
[2018-02-13 12:30] LABS: ALBUMIN 3.5 g/dL (3.5-5.0); CALCIUM 7.8 mg/dl (8.6-10.4)
[2018-02-13] MEDS: Azithromycin 500 MG in Sodium Chloride 0.9% 250 ML IVPB SCH (14:37)
--- NOTE | 2018-02-13 15:30 | CP.PCM.PN ---
Subjective - Date & Time of Evaluation Date of Evaluation: 02/13/18 Time of Evaluation: 12:00 - Subjective Subjective: clinically same Objective - Vital Signs/Intake and Output Vital Signs (last 24 hours): Temp Pulse Resp BP Pulse Ox 97.6 F 69 20 170/74 H 100 02/13/18 14:55 02/13/18 14:55 02/13/18 14:55 02/13/18 14:55 02/13/18 14:55 - Medications Medications: Current Medications Albuterol/Ipratropium (Duoneb 3 Mg/0.5 Mg (3 Ml) Ud) 3 ml IH RQ4 PRN PRN Reason: Shortness of Breath Carvedilol (Coreg) 12.5 mg PO DAILY [facility] Last Admin: 02/13/18 10:36 Dose: 12.5 mg Ferrous Sulfate (Feosol) 325 mg PO DAILY [facility] Last Admin: 02/13/18 10:36 Dose: 325 mg Hydralazine HCl (Apresoline) 100 mg PO DAILY [facility] Last Admin: 02/13/18 10:36 Dose: 100 mg Azithromycin 500 mg/ Sodium (Chloride) 250 mls @ 167 mls/hr IVPB Q24H [facility] PRN Reason: Protocol Last Admin: 02/13/18 14:37 Dose: Not Given Levetiracetam (Keppra) 500 mg PO Q12 [facility] Last Admin: 02/13/18 10:36 Dose: 500 mg Methadone HCl (Methadone) 10 mg PO DAILY [facility] Oxycodone/Acetaminophen (Percocet 5/325 Mg Tab) 1 tab PO Q6 PRN PRN Reason: Pain, severe (8-10) Stop: 02/15/18 19:50 Pantoprazole Sodium (Protonix Ec Tab) 40 mg PO DAILY [facility] Last Admin: 02/13/18 10:36 Dose: 40 mg Rosuvastatin Calcium (Crestor) 5 mg PO HS [facility] Sevelamer Carbonate (Renvela) 800 mg PO DAILY [facility] Last Admin: 02/13/18 10:36 Dose: 800 mg Vitamin B Complex/Vit C/Folic Acid (Nephro-Andrew) 1 tab PO DAILY [facility] Last Admin: 02/13/18 10:36 Dose: 1 tab - Labs Labs: 02/13/18 11:47 02/13/18 11:47 PT 11.0 SECONDS (9.7-12.2) 05/28/18 16:18 INR 1.0 02/12/18 16:18 APTT 41 SECONDS (21-34) H 02/12/18 16:18 - Constitutional Appears: Well - Head Exam Head Exam: ATRAUMATIC, NORMAL INSPECTION, NORMOCEPHALIC - Eye Exam Eye Exam: EOMI, Normal appearance, PERRL Pupil Exam: NORMAL ACCOMODATION, PERRL - ENT Exam ENT Exam: Mucous Membranes Moist, Normal Exam - Neck Exam Neck Exam: Full ROM, Normal Inspection. absent: Lymphadenopathy - Respiratory Exam Respiratory Exam: Decreased Breath Sounds - Cardiovascular Exam Cardiovascular Exam: REGULAR RHYTHM, +S1, +S2 - GI/Abdominal Exam GI & Abdominal Exam: Soft, Diminished Bowel Sounds - Rectal Exam Rectal Exam: Deferred
--- NOTE | 2018-02-13 17:01 | CP.PCM.CON ---
History of Present Illness - History of Present Illness History of Present Illness: Nephrology Consultation Note: Assessment: critical Fluid overload ? upper GI bleed Diabetic chronic Kidney Disease (E11.22) Hypertensive Chronic Kidney Disease (I12.0) End stage renal disease (N18.6) dependence on hemodialysis (Z99.2) (TTS) via AVF Anemia (D64.9), Hyperphosphatemia (E83.39), Secondary Hyperparathyroidism (E21.1 ), HTN (I12.0) CAD s/p CABG, DVT, Smoker Plan: Will plan for HD today as ordered. Continue with Nephrovite 1 tab/day. PRBC as needed for anemia. On MINGO with HD as last Hb 10.1 Continue with phos binders home dose, check last phos level BP control with meds as ordered. Patient not on RAAS alisha, will consider once optimizes volume status Glycemic control, Dialysis consistent diet Further work up/management as per primary team Dose meds/antibiotics (if needed) for ESRD status. Avoid fleets enema/magnesium based laxatives. appreciate GI input, pt was refusing endoscopic eval. I d/w her again about need and importance of test, she is agreeable now. monitor Hb/Hct closely pulmonary consult Thanks for allowing me to participate in care of your patient. Will follow patient with you. Please call if any Qs Dr Lb [place] Office: [phone] Chief Complaint;blood in vomitus HPI: Pt is a 52 F with hx of ESRD on hemodialysis (TTS) via AVF , last dialysis sat, chronic anemia, hyperphosphatemia, secondary hyperparathyroidism, Diabetes Mellitus, hypertension, smoker, DVT, CAD s/p CABG presented with complaints of blood in vomitus. Renal consult requested for ESRD management. pt c/o SOB and leg swelling no further blood in vomitus ROS: Cardiovascular: No chest pain. Pulmonary: c/o shortness of breath Gastrointestinal: denies abdominal pain No nausea. c/o vomiting. Genitourinary: No pain while urinating. Denies blood in urine. All other negative except as mentioned in HPI. reported weight loss Physical Examination: General Appearance: Comfortable, in no acute respiratory distress, co-operative . Vitals reviewed and noted as below Head; Atraumatic, normocephalic ENT: no ulcers no thrush. Tongue is midline. Oropharynx: no rash or ulcers. EYES: Pupils are equal, round and reactive to light accommodation. Eye muscles and extraocular movement intact. Sclera is anicteric. Neck; supple no lymphadenopathy, no thyromegaly or bruit Lungs: Normal respiratory rate/effort. Breath sounds bilateral reduced at basses with wheeze and rales at bases Heart: Normal rate. s1s2 normal. No rub or gallop. Extremities: 2+ edema. No varicose veins Neurological: Patient is alert, awake and oriented to person, place and time. No focal deficit. Strength bilateral appropriate and equal Skin: Warm and dry. Normal turgor. No rash. Palpitation: Normal elasticity for age Abdomen: Abdomen is soft. Bowel sounds +. There is no abdominal tenderness, no guarding/rigidity or organomegaly Psych: normal insight and normal affect/mood MSK: no joint tenderness or swelling. Digits and nails normal, no deformity : kidney or bladder not palpable Access: AVF Labs/imaging reviewed. Past medical history, past surgical history, family history, social history, allergy reviewed and noted as below Family Hx: no hx of CKD. Non contributory Past Patient History - Past Medical History & Family History Past Medical History?: Yes - Past Social History Smoking Status: Former Smoker - CARDIAC Hx Cardiac Disorders: Yes Hx Heart Attack: Yes Hx Hypertension: Yes Hx Peripheral Vascular Disease: Yes - PULMONARY Hx Respiratory Disorders: Yes Hx Chronic Obstructive Pulmonary Disease (COPD): Yes - NEUROLOGICAL Hx Neurological Disorder: No - HEENT Hx HEENT Problems: No - RENAL Hx Chronic Kidney Disease: Yes Hx Dialysis: Yes Type of Dialysis Access: LAV shunt Date of Last Dialysis Treatment: 02/10/18 - ENDOCRINE/METABOLIC Hx Endocrine Disorders: Yes Hx Diabetes Mellitus Type 1: Yes - HEMATOLOGICAL/ONCOLOGICAL Hx Blood Disorders: No - INTEGUMENTARY Hx Dermatological Problems: No - MUSCULOSKELETAL/RHEUMATOLOGICAL Hx Musculoskeletal Disorders: Yes Hx Falls: No Hx Osteomyelitis: Yes (left toe amputations) - GASTROINTESTINAL Hx Gastrointestinal Disorders: Yes Hx Gastroesophageal Reflux: Yes - GENITOURINARY/GYNECOLOGICAL Hx Genitourinary Disorders: No - PSYCHIATRIC Hx Psychophysiologic Disorder: Yes Hx Substance Use: Yes - SURGICAL HISTORY Hx Surgeries: Yes Hx Amputation: Yes Other/Comment: left toes amputation - ANESTHESIA Hx Anesthesia: Yes Hx Anesthesia Reactions: No Hx Malignant Hyperthermia: No Has any member of the family had a problem w/ anesthesia?: No Meds Allergies/Adverse Reactions: Allergies Allergy/AdvReac Type Severity Reaction Status Date / Time No Known Allergies Allergy Unverified 02/12/18 15:13 - Medications Medications: Current Medications Albuterol/Ipratropium (Duoneb 3 Mg/0.5 Mg (3 Ml) Ud) 3 ml IH RQ4 PRN PRN Reason: Shortness of Breath Carvedilol (Coreg) 12.5 mg PO DAILY [facility] Last Admin: 02/13/18 10:36 Dose: 12.5 mg Ferrous Sulfate (Feosol) 325 mg PO DAILY [facility] Last Admin: 02/13/18 10:36 Dose: 325 mg Hydralazine HCl (Apresoline) 100 mg PO DAILY [facility] Last Admin: 02/13/18 10:36 Dose: 100 mg Azithromycin 500 mg/ Sodium (Chloride) 250 mls @ 167 mls/hr IVPB Q24H [facility] PRN Reason: Protocol Last Admin: 02/13/18 14:37 Dose: Not Given Levetiracetam (Keppra) 500 mg PO Q12 [facility] Last Admin: 02/13/18 10:36 Dose: 500 mg Methadone HCl (Methadone) 10 mg PO DAILY [facility] Last Admin: 02/13/18 15:54 Dose: 10 mg Oxycodone/Acetaminophen (Percocet 5/325 Mg Tab) 1 tab PO Q6 PRN PRN Reason: Pain, severe (8-10) Stop: 02/15/18 19:50 Pantoprazole Sodium (Protonix Ec Tab) 40 mg PO DAILY [facility] Last Admin: 02/13/18 10:36 Dose: 40 mg Rosuvastatin Calcium (Crestor) 5 mg PO [facility] Sevelamer Carbonate (Renvela) 800 mg PO DAILY [facility] Last Admin: 02/13/18 10:36 Dose: 800 mg Vitamin B Complex/Vit C/Folic Acid (Nephro-Andrew) 1 tab PO DAILY [facility] Last Admin: 02/13/18 10:36 Dose: 1 tab Results - Vital Signs Recent Vital Signs: Last Vital Signs Temp 97.2 F L 02/13/18 15:00 Pulse 73 02/13/18 16:00 Resp 20 02/13/18 15:00 BP 185/74 H 02/13/18 15:00 Pulse Ox 100 02/13/18 15:00 - Labs Result Diagrams: 02/13/18 11:47 02/13/18 11:47 Labs: Laboratory Results - last 24 hr 02/12/18 02/12/18 02/12/18 16:18 18:35 21:54 WBC RBC Hgb Hct MCV MCH MCHC RDW Plt Count MPV Neut % (Auto) Lymph % (Auto) Antelope % (Auto) Eos % (Auto) Baso % (Auto) Neut # (Auto) Lymph # (Auto) [place]elope # (Auto) Eos # (Auto) Baso # (Auto) Neutrophils % (Manual) 90 H Band Neutrophils % 1 Lymphocytes % (Manual) 8 L Monocytes % (Manual) 1 Platelet Estimate Normal Polychromasia Slight Hypochromasia (manual) Slight Microcytosis (manual) Slight Sodium Potassium Chloride Carbon Dioxide Anion Gap BUN Creatinine Est GFR ( Amer) Est GFR (Non-Af Amer) POC Glucose (mg/dL) 104 Random Glucose Calcium Phosphorus Total Bilirubin AST ALT Alkaline Phosphatase Total Protein Albumin Globulin Albumin/Globulin Ratio Gastric Occult Blood Postive H 02/13/18 02/13/18 02/13/18 06:15 06:17 06:53 WBC RBC Hgb Hct MCV MCH MCHC RDW Plt Count MPV Neut % (Auto) Lymph % (Auto) [place]elope % (Auto) Eos % (Auto) Baso % (Auto) Neut # (Auto) Lymph # (Auto) [place]elope # (Auto) Eos # (Auto) Baso # (Auto) Neutrophils % (Manual) Band Neutrophils % Lymphocytes % (Manual) Monocytes % (Manual) Platelet Estimate Polychromasia Hypochromasia (manual) Microcytosis (manual) Sodium Potassium Chloride Carbon Dioxide Anion Gap BUN Creatinine Est GFR ( Amer) Est GFR (Non-Af Amer) POC Glucose (mg/dL) 61 L 53 L 149 H Random Glucose Calcium Phosphorus Total Bilirubin AST ALT Alkaline Phosphatase Total Protein Albumin Globulin Albumin/Globulin Ratio Gastric Occult Blood 02/13/18 02/13/18 02/13/18 11:37 11:47 11:47 WBC 7.0 RBC 2.30 L Hgb 7.2 L D Hct 21.6 L MCV 94.1 MCH 31.3 H MCHC 33.2 RDW 20.5 H Plt Count 218 MPV 7.6 Neut % (Auto) 81.1 H Lymph % (Auto) 11.3 L [place]elope % (Auto) 6.4 Eos % (Auto) 0.5 Baso % (Auto) 0.7 Neut # (Auto) 5.6 Lymph # (Auto) 0.8 L [place]elope # (Auto) 0.4 Eos # (Auto) 0.0 Baso # (Auto) 0.1 Neutrophils % (Manual) Band Neutrophils % Lymphocytes % (Manual) Monocytes % (Manual) Platelet Estimate Polychromasia Hypochromasia (manual) Microcytosis (manual) Sodium 138 Potassium 4.8 Chloride 95 L Carbon Dioxide 25 Anion Gap 24 H BUN 65 H Creatinine 8.0 H* Est GFR ( Amer) 6 Est GFR (Non-Af Amer) 5 POC Glucose (mg/dL) 160 H Random Glucose 143 H Calcium 7.8 L Phosphorus 6.0 H Total Bilirubin 0.4 AST 30 ALT 9 D Alkaline Phosphatase 153 H D Total Protein 6.9 Albumin 3.5 Globulin 3.5 Albumin/Globulin Ratio 1.0 Gastric Occult Blood 02/13/18 16:30 WBC RBC Hgb Hct MCV MCH MCHC RDW Plt Count MPV Neut % (Auto) Lymph % (Auto) [place]elope % (Auto) Eos % (Auto) Baso % (Auto) Neut # (Auto) Lymph # (Auto) [place]elope # (Auto) Eos # (Auto) Baso # (Auto) Neutrophils % (Manual) Band Neutrophils % Lymphocytes % (Manual) Monocytes % (Manual) Platelet Estimate Polychromasia Hypochromasia (manual) Microcytosis (manual) Sodium Potassium Chloride Carbon Dioxide Anion Gap BUN Creatinine Est GFR ( Amer) Est GFR (Non-Af Amer) POC Glucose (mg/dL) 129 H Random Glucose Calcium Phosphorus Total Bilirubin AST ALT Alkaline Phosphatase Total Protein Albumin Globulin Albumin/Globulin Ratio Gastric Occult Blood
--- NOTE | 2018-02-13 19:24 | CP.PCM.CON ---
Past Patient History - Past Medical History & Family History Past Medical History?: Yes - Past Social History Smoking Status: Former Smoker - CARDIAC Hx Cardiac Disorders: Yes Hx Heart Attack: Yes Hx Hypertension: Yes Hx Peripheral Vascular Disease: Yes - PULMONARY Hx Respiratory Disorders: Yes Hx Chronic Obstructive Pulmonary Disease (COPD): Yes - NEUROLOGICAL Hx Neurological Disorder: No - HEENT Hx HEENT Problems: No - RENAL Hx Chronic Kidney Disease: Yes Hx Dialysis: Yes Type of Dialysis Access: LAV shunt Date of Last Dialysis Treatment: 02/10/18 - ENDOCRINE/METABOLIC Hx Endocrine Disorders: Yes Hx Diabetes Mellitus Type 1: Yes - HEMATOLOGICAL/ONCOLOGICAL Hx Blood Disorders: No - INTEGUMENTARY Hx Dermatological Problems: No - MUSCULOSKELETAL/RHEUMATOLOGICAL Hx Musculoskeletal Disorders: Yes Hx Falls: No Hx Osteomyelitis: Yes (left toe amputations) - GASTROINTESTINAL Hx Gastrointestinal Disorders: Yes Hx Gastroesophageal Reflux: Yes - GENITOURINARY/GYNECOLOGICAL Hx Genitourinary Disorders: No - PSYCHIATRIC Hx Psychophysiologic Disorder: Yes Hx Substance Use: Yes - SURGICAL HISTORY Hx Surgeries: Yes Hx Amputation: Yes Other/Comment: left toes amputation - ANESTHESIA Hx Anesthesia: Yes Hx Anesthesia Reactions: No Hx Malignant Hyperthermia: No Has any member of the family had a problem w/ anesthesia?: No Meds Allergies/Adverse Reactions: Allergies Allergy/AdvReac Type Severity Reaction Status Date / Time No Known Allergies Allergy Unverified 02/12/18 15:13 - Medications Medications: Current Medications Albuterol/Ipratropium (Duoneb 3 Mg/0.5 Mg (3 Ml) Ud) 3 ml IH RQ4 PRN PRN Reason: Shortness of Breath Carvedilol (Coreg) 12.5 mg PO DAILY [facility] Last Admin: 02/13/18 10:36 Dose: 12.5 mg Ferrous Sulfate (Feosol) 325 mg PO DAILY [facility] Last Admin: 02/13/18 10:36 Dose: 325 mg Hydralazine HCl (Apresoline) 100 mg PO DAILY [facility] Last Admin: 02/13/18 10:36 Dose: 100 mg Azithromycin 500 mg/ Sodium (Chloride) 250 mls @ 167 mls/hr IVPB Q24H [facility] PRN Reason: Protocol Last Admin: 02/13/18 14:37 Dose: Not Given Levetiracetam (Keppra) 500 mg PO Q12 [facility] Last Admin: 02/13/18 10:36 Dose: 500 mg Methadone HCl (Methadone) 10 mg PO DAILY [facility] Last Admin: 02/13/18 15:54 Dose: 10 mg Oxycodone/Acetaminophen (Percocet 5/325 Mg Tab) 1 tab PO Q6 PRN PRN Reason: Pain, severe (8-10) Stop: 02/15/18 19:50 Pantoprazole Sodium (Protonix Inj) 40 mg IVP Q12H [facility] Rosuvastatin Calcium (Crestor) 5 mg PO HS [facility] Sevelamer Carbonate (Renvela) 800 mg PO DAILY [facility] Last Admin: 02/13/18 10:36 Dose: 800 mg Vitamin B Complex/Vit C/Folic Acid (Nephro-Andrew) 1 tab PO DAILY [facility] Last Admin: 02/13/18 10:36 Dose: 1 tab Results - Vital Signs Recent Vital Signs: Last Vital Signs Temp 97.2 F L 02/13/18 15:00 Pulse 73 02/13/18 16:00 Resp 20 02/13/18 15:00 BP 185/74 H 02/13/18 15:00 Pulse Ox 100 02/13/18 15:00 - Labs Result Diagrams: 02/13/18 11:47 02/13/18 11:47 Labs: Laboratory Results - last 24 hr 02/12/18 02/13/18 02/13/18 21:54 06:15 06:17 WBC RBC Hgb Hct MCV MCH MCHC RDW Plt Count MPV Neut % (Auto) Lymph % (Auto) [place] % (Auto) Eos % (Auto) Baso % (Auto) Neut # (Auto) Lymph # (Auto) [place] # (Auto) Eos # (Auto) Baso # (Auto) Sodium Potassium Chloride Carbon Dioxide Anion Gap BUN Creatinine Est GFR ( Amer) Est GFR (Non-Af Amer) POC Glucose (mg/dL) 104 61 L 53 L Random Glucose Calcium Phosphorus Total Bilirubin AST ALT Alkaline Phosphatase Total Protein Albumin Globulin Albumin/Globulin Ratio 02/13/18 02/13/18 02/13/18 06:53 11:37 11:47 WBC 7.0 RBC 2.30 L Hgb 7.2 L D Hct 21.6 L MCV 94.1 MCH 31.3 H MCHC 33.2 RDW 20.5 H Plt Count 218 MPV 7.6 Neut % (Auto) 81.1 H Lymph % (Auto) 11.3 L [place] % (Auto) 6.4 Eos % (Auto) 0.5 Baso % (Auto) 0.7 Neut # (Auto) 5.6 Lymph # (Auto) 0.8 L [place] # (Auto) 0.4 Eos # (Auto) 0.0 Baso # (Auto) 0.1 Sodium Potassium Chloride Carbon Dioxide Anion Gap BUN Creatinine Est GFR ( Amer) Est GFR (Non-Af Amer) POC Glucose (mg/dL) 149 H 160 H Random Glucose Calcium Phosphorus Total Bilirubin AST ALT Alkaline Phosphatase Total Protein Albumin Globulin Albumin/Globulin Ratio 02/13/18 02/13/18 11:47 16:30 WBC RBC Hgb Hct MCV MCH MCHC RDW Plt Count MPV Neut % (Auto) Lymph % (Auto) [place] % (Auto) Eos % (Auto) Baso % (Auto) Neut # (Auto) Lymph # (Auto) [place] # (Auto) Eos # (Auto) Baso # (Auto) Sodium 138 Potassium 4.8 Chloride 95 L Carbon Dioxide 25 Anion Gap 24 H BUN 65 H Creatinine 8.0 H* Est GFR ( Amer) 6 Est GFR (Non-Af Amer) 5 POC Glucose (mg/dL) 129 H Random Glucose 143 H Calcium 7.8 L Phosphorus 6.0 H Total Bilirubin 0.4 AST 30 ALT 9 D Alkaline Phosphatase 153 H D Total Protein 6.9 Albumin 3.5 Globulin 3.5 Albumin/Globulin Ratio 1.0
[2018-02-14] MEDS ORDERED: Dextrose 50% SYRINGE Inj (50 ml) IV STA (06:43)
[2018-02-14] MEDS ORDERED: Sodium Chloride 0.9% 500 ML IV ONE (08:45)
[2018-02-14] MEDS ORDERED: Propofol 10 mg/ml Inj (20 ML) ONE (09:09)
[2018-02-14] MEDS: Multivitamin Vitamin B Complex (Nephro-Vite) Tab PO SCH (10:46)
[2018-02-14 10:59] LABS: MEAN PLATELET VOLUME 7.7 fL (7.2-11.7)
[2018-02-14 11:13] LABS: HEMOGLOBIN 8.2 g/dL (11.0-16.0); MEAN CORPUSCULAR HEMOGLOBIN 30.6 pg (27.0-31.0); MEAN CORPUSCULAR HGB CONC 33.2 g/dL (33.0-37.0); RBC 2.7 Mil/uL (3.80-5.20); RED CELL DISTRIBUTION WIDTH 20.1 % (11.5-14.5); WHITE BLOOD COUNT 5.3 K/uL (4.8-10.8)
[2018-02-14 11:15] LABS: MEAN CELL VOLUME 92.1 fL (81.0-99.0)
[2018-02-14 11:17] LABS: ALB/GLOB RATIO 0.9 (1.0-2.1); ALBUMIN 3.5 g/dL (3.5-5.0); CALCIUM 7.8 mg/dl (8.6-10.4)
[2018-02-14] MEDS: Azithromycin 500 MG in Sodium Chloride 0.9% 250 ML IVPB SCH (14:31)
--- NOTE | 2018-02-14 15:44 | CP.PCM.PN ---
Subjective - Date & Time of Evaluation Date of Evaluation: 02/14/18 Time of Evaluation: 09:00 - Subjective Subjective: Patient states she experienced blood in her sputum when coughing which began yesterday morning with no specific provoking event. Objective - Vital Signs/Intake and Output Vital Signs (last 24 hours): Temp Pulse Resp BP Pulse Ox 97.5 F L 65 20 179/77 H 99 02/14/18 10:45 02/14/18 12:00 02/14/18 10:45 02/14/18 10:45 02/14/18 10:45 Intake and Output: 02/14/18 02/14/18 06:59 18:59 Intake Total 556 400 Balance 556 400 - Medications Medications: Current Medications Albuterol/Ipratropium (Duoneb 3 Mg/0.5 Mg (3 Ml) Ud) 3 ml IH RQ4 PRN PRN Reason: Shortness of Breath Carvedilol (Coreg) 6.25 mg PO BID [facility] Ferrous Sulfate (Feosol) 325 mg PO DAILY [facility] Last Admin: 02/14/18 10:47 Dose: 325 mg Hydralazine HCl (Apresoline) 50 mg PO BID [facility] Azithromycin 500 mg/ Sodium (Chloride) 250 mls @ 167 mls/hr IVPB Q24H [facility] PRN Reason: Protocol Last Admin: 02/14/18 14:31 Dose: 167 mls/hr Levetiracetam (Keppra) 500 mg PO Q12 [facility] Last Admin: 02/14/18 10:47 Dose: 500 mg Methadone HCl (Methadone) 10 mg PO DAILY [facility] Last Admin: 02/14/18 10:47 Dose: 10 mg Oxycodone/Acetaminophen (Percocet 5/325 Mg Tab) 1 tab PO Q6 PRN PRN Reason: Pain, severe (8-10) Stop: 02/15/18 19:50 Pantoprazole Sodium (Protonix Inj) 40 mg IVP Q12H [facility] Last Admin: 02/14/18 08:23 Dose: 40 mg Rosuvastatin Calcium (Crestor) 5 mg PO HS [facility] Last Admin: 02/13/18 21:26 Dose: 5 mg Sevelamer Carbonate (Renvela) 800 mg PO TIDCC [facility] Vitamin B Complex/Vit C/Folic Acid (Nephro-Andrew) 1 tab PO DAILY [facility] Last Admin: 02/14/18 10:46 Dose: 1 tab - Labs Labs: 02/14/18 10:55 02/14/18 10:55 PT 11.0 SECONDS (9.7-12.2) 02/12/18 16:18 INR 1.0 02/12/18 16:18 APTT 41 SECONDS (21-34) H 02/12/18 16:18 - Constitutional Appears: Non-toxic, Chronically Ill - Head Exam Head Exam: NORMOCEPHALIC - Eye Exam Eye Exam: PERRL - ENT Exam ENT Exam: Mucous Membranes Dry - Neck Exam Neck Exam: absent: Lymphadenopathy - Respiratory Exam Respiratory Exam: Decreased Breath Sounds - Cardiovascular Exam Cardiovascular Exam: REGULAR RHYTHM - GI/Abdominal Exam GI & Abdominal Exam: Distended, Soft - Rectal Exam Rectal Exam: Deferred - Exam Exam: NORMAL INSPECTION Assessment and Plan (1) ESRD (end stage renal disease) Status: Acute (2) Gastrointestinal hemorrhage Status: Acute - Assessment and Plan (Free Text) Assessment: cont iv rx pulm eval for CT chest poss bronchoscopy
--- NOTE | 2018-02-14 16:51 | CP.PCM.PN ---
Subjective - Date & Time of Evaluation Date of Evaluation: 02/14/18 Time of Evaluation: 16:47 - Subjective Subjective: Nephrology Consultation Note: Assessment: stable Fluid overload with ? COPD exacerbation ? upper GI bleed Diabetic chronic Kidney Disease (E11.22) Hypertensive Chronic Kidney Disease (I12.0) End stage renal disease (N18.6) dependence on hemodialysis (Z99.2) (TTS) via AVF Anemia (D64.9), Hyperphosphatemia (E83.39), Secondary Hyperparathyroidism (E21.1 ), HTN (I12.0) CAD s/p CABG, DVT, Smoker Plan: Will plan for HD tomorrow as ordered. Continue with Nephrovite 1 tab/day. PRBC as needed for anemia. On MINGO with HD as last Hb 8.2 Continue with phos binders as adjusted, last phos level 6 BP control with meds as ordered. Patient not on RAAS alisha, will consider once optimizes volume status. changed hydralazine and coreg to bid Glycemic control, Dialysis consistent diet Further work up/management as per primary team Dose meds/antibiotics (if needed) for ESRD status. Avoid fleets enema/magnesium based laxatives. appreciate GI input, pulmonary, ID consult Thanks for allowing me to participate in care of your patient. Will follow patient with you. Please call if any Qs Dr Lb West Office: [phone] Chief Complaint; none today HPI: Pt is a 52 F with hx of ESRD on hemodialysis (TTS) via AVF @ [facility] with Dr Li , last dialysis sat, chronic anemia, hyperphosphatemia, secondary hyperparathyroidism, Diabetes Mellitus, hypertension, smoker, DVT, CAD s/p CABG presented with complaints of blood in vomitus. Renal consult requested for ESRD management. pt c/o SOB and leg swelling no further blood in vomitus ROS: Cardiovascular: No chest pain. Pulmonary: c/o shortness of breath Gastrointestinal: denies abdominal pain No nausea. improved vomiting. Genitourinary: No pain while urinating. Denies blood in urine. All other negative except as mentioned in HPI. reported weight loss Physical Examination: General Appearance: Comfortable, in no acute respiratory distress, co-operative . Vitals reviewed and noted as below Head; Atraumatic, normocephalic ENT: no ulcers no thrush. Tongue is midline. Oropharynx: no rash or ulcers. EYES: Pupils are equal, round and reactive to light accommodation. Eye muscles and extraocular movement intact. Sclera is anicteric. Neck; supple no lymphadenopathy, no thyromegaly or bruit Lungs: Normal respiratory rate/effort. Breath sounds bilateral with wheeze Heart: Normal rate. s1s2 normal. No rub or gallop. Extremities: 1+ edema. No varicose veins Neurological: Patient is alert, awake and oriented to person, place and time. No focal deficit. Strength bilateral appropriate and equal Skin: Warm and dry. Normal turgor. No rash. Palpitation: Normal elasticity for age Abdomen: Abdomen is soft. Bowel sounds +. There is no abdominal tenderness, no guarding/rigidity or organomegaly Psych: normal insight and normal affect/mood MSK: no joint tenderness or swelling. Digits and nails normal, no deformity : kidney or bladder not palpable Access: AVF Labs/imaging reviewed. Past medical history, past surgical history, family history, social history, allergy reviewed and noted as below Family Hx: no hx of CKD. Non contributory Objective - Vital Signs/Intake and Output Vital Signs (last 24 hours): Temp Pulse Resp BP Pulse Ox 97.5 F L 65 20 179/77 H 99 02/14/18 10:45 02/14/18 12:00 02/14/18 10:45 02/14/18 10:45 02/14/18 10:45 Intake and Output: 02/14/18 02/14/18 06:59 18:59 Intake Total 556 400 Balance 556 400 - Medications Medications: Current Medications Albuterol/Ipratropium (Duoneb 3 Mg/0.5 Mg (3 Ml) Ud) 3 ml IH RQ4 PRN PRN Reason: Shortness of Breath Carvedilol (Coreg) 6.25 mg PO BID [facility] Ferrous Sulfate (Feosol) 325 mg PO DAILY [facility] Last Admin: 02/14/18 10:47 Dose: 325 mg Hydralazine HCl (Apresoline) 50 mg PO BID [facility] Azithromycin 500 mg/ Sodium (Chloride) 250 mls @ 167 mls/hr IVPB Q24H [facility] PRN Reason: Protocol Last Admin: 02/14/18 14:31 Dose: 167 mls/hr Levetiracetam (Keppra) 500 mg PO Q12 [facility] Last Admin: 02/14/18 10:47 Dose: 500 mg Methadone HCl (Methadone) 10 mg PO DAILY [facility] Last Admin: 02/14/18 10:47 Dose: 10 mg Oxycodone/Acetaminophen (Percocet 5/325 Mg Tab) 1 tab PO Q6 PRN PRN Reason: Pain, severe (8-10) Stop: 02/15/18 19:50 Pantoprazole Sodium (Protonix Inj) 40 mg IVP Q12H [facility] Last Admin: 02/14/18 08:23 Dose: 40 mg Rosuvastatin Calcium (Crestor) 5 mg PO HS [facility] Last Admin: 02/13/18 21:26 Dose: 5 mg Sevelamer Carbonate (Renvela) 800 mg PO TIDCC [facility] Vitamin B Complex/Vit C/Folic Acid (Nephro-Andrew) 1 tab PO DAILY [facility] Last Admin: 02/14/18 10:46 Dose: 1 tab - Labs Labs: 02/14/18 10:55 02/14/18 10:55 PT 11.0 SECONDS (9.7-12.2) 02/12/18 16:18 INR 1.0 02/12/18 16:18 APTT 41 SECONDS (21-34) H 02/12/18 16:18
--- NOTE | 2018-02-14 17:16 | CP.PCM.PN ---
Subjective - Date & Time of Evaluation Date of Evaluation: 02/14/18 Time of Evaluation: 17:16 Objective - Vital Signs/Intake and Output Vital Signs (last 24 hours): Temp Pulse Resp BP Pulse Ox 97.5 F L 65 20 179/77 H 99 02/14/18 10:45 02/14/18 12:00 02/14/18 10:45 02/14/18 10:45 02/14/18 10:45 Intake and Output: 02/14/18 02/14/18 06:59 18:59 Intake Total 556 400 Balance 556 400 - Medications Medications: Current Medications Albuterol/Ipratropium (Duoneb 3 Mg/0.5 Mg (3 Ml) Ud) 3 ml IH RQ4 [facility] Carvedilol (Coreg) 6.25 mg PO BID [facility] Epoetin Dami (Procrit) 8,000 unit IV TTS [facility] Ferrous Sulfate (Feosol) 325 mg PO DAILY [facility] Last Admin: 02/14/18 10:47 Dose: 325 mg Hydralazine HCl (Apresoline) 50 mg PO BID [facility] Azithromycin 500 mg/ Sodium (Chloride) 250 mls @ 167 mls/hr IVPB Q24H [facility] PRN Reason: Protocol Last Admin: 02/14/18 14:31 Dose: 167 mls/hr Levetiracetam (Keppra) 500 mg PO Q12 [facility] Last Admin: 02/14/18 10:47 Dose: 500 mg Methadone HCl (Methadone) 10 mg PO DAILY [facility] Last Admin: 02/14/18 10:47 Dose: 10 mg Oxycodone/Acetaminophen (Percocet 5/325 Mg Tab) 1 tab PO Q6 PRN PRN Reason: Pain, severe (8-10) Stop: 02/15/18 19:50 Pantoprazole Sodium (Protonix Inj) 40 mg IVP Q12H [facility] Last Admin: 02/14/18 08:23 Dose: 40 mg Rosuvastatin Calcium (Crestor) 5 mg PO HS [facility] Last Admin: 02/13/18 21:26 Dose: 5 mg Sevelamer Carbonate (Renvela) 800 mg PO TIDCC [facility] Vitamin B Complex/Vit C/Folic Acid (Nephro-Andrew) 1 tab PO DAILY [facility] Last Admin: 02/14/18 10:46 Dose: 1 tab - Labs Labs: 02/14/18 10:55 02/14/18 10:55 PT 11.0 SECONDS (9.7-12.2) 02/12/18 16:18 INR 1.0 02/12/18 16:18 APTT 41 SECONDS (21-34) H 02/12/18 16:18
--- NOTE | 2018-02-14 19:12 | CP.PCM.PN ---
Subjective - Date & Time of Evaluation Date of Evaluation: 02/14/18 Time of Evaluation: 13:00 - Subjective Subjective: clinically same Objective - Vital Signs/Intake and Output Vital Signs (last 24 hours): Temp Pulse Resp BP Pulse Ox 98.4 F 60 20 152/62 H 66 L 02/14/18 15:25 02/14/18 18:43 02/14/18 15:25 02/14/18 18:43 02/14/18 15:25 Intake and Output: 02/14/18 02/15/18 18:59 06:59 Intake Total 400 Balance 400 - Medications Medications: Current Medications Albuterol/Ipratropium (Duoneb 3 Mg/0.5 Mg (3 Ml) Ud) 3 ml IH RQ4 [facility] Carvedilol (Coreg) 6.25 mg PO BID [facility] Last Admin: 02/14/18 18:38 Dose: 6.25 mg Epoetin Dami (Procrit) 8,000 unit IV TTS [facility] Ferrous Sulfate (Feosol) 325 mg PO DAILY [facility] Last Admin: 02/14/18 10:47 Dose: 325 mg Hydralazine HCl (Apresoline) 50 mg PO BID [facility] Last Admin: 02/14/18 18:38 Dose: 50 mg Azithromycin 500 mg/ Sodium (Chloride) 250 mls @ 167 mls/hr IVPB Q24H [facility] PRN Reason: Protocol Last Admin: 02/14/18 14:31 Dose: 167 mls/hr Levetiracetam (Keppra) 500 mg PO Q12 [facility] Last Admin: 02/14/18 10:47 Dose: 500 mg Methadone HCl (Methadone) 10 mg PO DAILY [facility] Last Admin: 02/14/18 10:47 Dose: 10 mg Oxycodone/Acetaminophen (Percocet 5/325 Mg Tab) 1 tab PO Q6 PRN PRN Reason: Pain, severe (8-10) Stop: 02/15/18 19:50 Pantoprazole Sodium (Protonix Inj) 40 mg IVP Q12H [facility] Last Admin: 02/14/18 08:23 Dose: 40 mg Rosuvastatin Calcium (Crestor) 5 mg PO HS [facility] Last Admin: 02/13/18 21:26 Dose: 5 mg Sevelamer Carbonate (Renvela) 800 mg PO TIDCC [facility] Last Admin: 02/14/18 18:38 Dose: 800 mg Vitamin B Complex/Vit C/Folic Acid (Nephro-Andrew) 1 tab PO DAILY [facility] Last Admin: 02/14/18 10:46 Dose: 1 tab - Labs Labs: 02/14/18 10:55 02/14/18 10:55 PT 11.0 SECONDS (9.7-12.2) 02/12/18 16:18 INR 1.0 02/12/18 16:18 APTT 41 SECONDS (21-34) H 02/12/18 16:18 - Constitutional Appears: Well - Head Exam Head Exam: ATRAUMATIC, NORMAL INSPECTION, NORMOCEPHALIC - Eye Exam Eye Exam: EOMI, Normal appearance, PERRL Pupil Exam: NORMAL ACCOMODATION, PERRL - ENT Exam ENT Exam: Mucous Membranes Moist, Normal Exam - Neck Exam Neck Exam: Full ROM, Normal Inspection. absent: Lymphadenopathy - Respiratory Exam Respiratory Exam: Decreased Breath Sounds - Cardiovascular Exam Cardiovascular Exam: REGULAR RHYTHM, +S1, +S2 - GI/Abdominal Exam GI & Abdominal Exam: Soft, Diminished Bowel Sounds - Rectal Exam Rectal Exam: Deferred
[2018-02-15] MEDS: Albuterol-Ipratrop 3 mg / 0.5 (3 ml) UD IH SCH ×4 (07:09→19:29)
--- NOTE | 2018-02-15 08:38 | CP.PCM.PN ---
<Gregory France - Last Filed: 02/15/18 08:46> Subjective - Date & Time of Evaluation Date of Evaluation: 02/15/18 Time of Evaluation: 07:10 - Subjective Subjective: PGY4 GI Follow-up Pt seen and examined bedside Notes abd pain in the periumbilical area small BM yesterday, denies any bleeding tolerating liquid diet 12 point ROS conducted, neg other than above Objective - Vital Signs/Intake and Output Vital Signs (last 24 hours): Temp Pulse Resp BP Pulse Ox 98.4 F 59 L 20 151/71 H 100 02/14/18 23:30 02/15/18 00:18 02/14/18 23:30 02/14/18 23:30 02/14/18 23:30 Intake and Output: 02/15/18 02/15/18 06:59 18:59 Intake Total 720 Balance 720 - Medications Medications: Current Medications Albuterol/Ipratropium (Duoneb 3 Mg/0.5 Mg (3 Ml) Ud) 3 ml IH RQ4 [facility] Carvedilol (Coreg) 6.25 mg PO BID [facility] Last Admin: 02/14/18 18:38 Dose: 6.25 mg Epoetin Dami (Procrit) 8,000 unit IV TTS [facility] Ferrous Sulfate (Feosol) 325 mg PO DAILY [facility] Last Admin: 02/14/18 10:47 Dose: 325 mg Hydralazine HCl (Apresoline) 50 mg PO BID [facility] Last Admin: 02/14/18 18:38 Dose: 50 mg Azithromycin 500 mg/ Sodium (Chloride) 250 mls @ 167 mls/hr IVPB Q24H [facility] PRN Reason: Protocol Last Admin: 02/14/18 14:31 Dose: 167 mls/hr Levetiracetam (Keppra) 500 mg PO Q12 [facility] Last Admin: 02/14/18 21:36 Dose: 500 mg Methadone HCl (Methadone) 10 mg PO DAILY [facility] Last Admin: 02/14/18 10:47 Dose: 10 mg Oxycodone/Acetaminophen (Percocet 5/325 Mg Tab) 1 tab PO Q6 PRN PRN Reason: Pain, severe (8-10) Stop: 02/15/18 19:50 Pantoprazole Sodium (Protonix Inj) 40 mg IVP Q12H [facility] Last Admin: 02/15/18 07:05 Dose: 40 mg Polyethylene Glycol/Electrolytes (Golytely) 4,000 ml PO ONCE ONE Stop: 02/15/18 13:01 Rosuvastatin Calcium (Crestor) 5 mg PO HS [facility] Last Admin: 02/14/18 21:36 Dose: 5 mg Sevelamer Carbonate (Renvela) 800 mg PO TIDCC [facility] Last Admin: 02/15/18 08:34 Dose: Not Given Vitamin B Complex/Vit C/Folic Acid (Nephro-Andrew) 1 tab PO DAILY [facility] Last Admin: 02/14/18 10:46 Dose: 1 tab - Labs Labs: 02/14/18 10:55 02/14/18 10:55 PT 11.0 SECONDS (9.7-12.2) 02/12/18 16:18 INR 1.0 02/12/18 16:18 APTT 41 SECONDS (21-34) H 02/12/18 16:18 - Constitutional Appears: Well, No Acute Distress - Head Exam Head Exam: ATRAUMATIC, NORMOCEPHALIC - Eye Exam Eye Exam: Normal appearance - ENT Exam ENT Exam: Mucous Membranes Moist, Normal Exam - Respiratory Exam Respiratory Exam: Clear to Ausculation Bilateral, NORMAL BREATHING PATTERN. absent: Rales, Rhonchi, Wheezes, Respiratory Distress - Cardiovascular Exam Cardiovascular Exam: REGULAR RHYTHM, +S1, +S2 - GI/Abdominal Exam GI & Abdominal Exam: Soft, Tenderness (periumbilical), Normal Bowel Sounds. absent: Distended, Firm, Guarding, Rigid, Organomegaly, Rebound - Extremities Exam Extremities Exam: absent: Joint Swelling, Pedal Edema - Neurological Exam Neurological Exam: Alert, Awake, Oriented x3 - Psychiatric Exam Psychiatric exam: Normal Affect, Normal Mood - Skin Skin Exam: Dry, Intact, Normal Color, Warm Assessment and Plan - Assessment and Plan (Free Text) Assessment: Jerri Koehler 52 year old female with a past medical history of hypertension , diabetes, CVA, CAD, ESRD on HD, DVT, and tobacco abuse who was admitted for evaluation and treatment of a potential GI bleed. s/p EGD POD 1: gastritis, duodenitis Abdominal Pain Hemoptysis? Anemia, s/p 1 unit PRBC Hx of CVA Hx of CAD HX of ESRD on HD Plan: -Maintain hgb > 8 -repeat cbc today -continue PPI IV BID -maintain IV access -plan for colonocopy tomorrow -start prep today -NPO after midnight -clears till midnight -risk and benefits explained to the pt and verbalizes understanding D/W Dr. Powell <Donta Powell Y - Last Filed: 02/15/18 10:42> Objective - Vital Signs/Intake and Output Vital Signs (last 24 hours): Temp Pulse Resp BP Pulse Ox 98 F 65 18 218/84 H 100 02/15/18 09:15 02/15/18 09:15 02/15/18 09:15 02/15/18 10:00 02/15/18 09:15 Intake and Output: 02/15/18 02/15/18 06:59 18:59 Intake Total 720 Balance 720 - Medications Medications: Current Medications Albuterol/Ipratropium (Duoneb 3 Mg/0.5 Mg (3 Ml) Ud) 3 ml IH RQ4 [facility] Carvedilol (Coreg) 6.25 mg PO BID [facility] Last Admin: 02/15/18 10:31 Dose: 6.25 mg Epoetin Dami (Procrit) 8,000 unit IV TTS [facility] Ferrous Sulfate (Feosol) 325 mg PO DAILY [facility] Last Admin: 02/15/18 10:32 Dose: Not Given Hydralazine HCl (Apresoline) 50 mg PO BID [facility] Last Admin: 02/15/18 10:30 Dose: Not Given Hydralazine HCl (Apresoline) 25 mg PO Q4 PRN PRN Reason: Other Azithromycin 500 mg/ Sodium (Chloride) 250 mls @ 167 mls/hr IVPB Q24H [facility] PRN Reason: Protocol Last Admin: 02/14/18 14:31 Dose: 167 mls/hr Levetiracetam (Keppra) 500 mg PO Q12 [facility] Last Admin: 02/15/18 10:32 Dose: Not Given Losartan Potassium (Cozaar) 50 mg PO DAILY [facility] Last Admin: 02/15/18 10:31 Dose: 50 mg Methadone HCl (Methadone) 10 mg PO DAILY [facility] Last Admin: 02/15/18 10:33 Dose: Not Given Oxycodone/Acetaminophen (Percocet 5/325 Mg Tab) 1 tab PO Q6 PRN PRN Reason: Pain, severe (8-10) Stop: 02/15/18 19:50 Pantoprazole Sodium (Protonix Inj) 40 mg IVP Q12H [facility] Last Admin: 02/15/18 07:05 Dose: 40 mg Polyethylene Glycol/Electrolytes (Golytely) 4,000 ml PO ONCE ONE Stop: 02/15/18 13:01 Rosuvastatin Calcium (Crestor) 5 mg PO HS [facility] Last Admin: 02/14/18 21:36 Dose: 5 mg Sevelamer Carbonate (Renvela) 800 mg PO TIDCC [facility] Last Admin: 02/15/18 08:34 Dose: Not Given Vitamin B Complex/Vit C/Folic Acid (Nephro-Andrew) 1 tab PO DAILY [facility] Last Admin: 02/15/18 10:32 Dose: Not Given - Labs Labs: 02/14/18 10:55 02/14/18 10:55 PT 11.0 SECONDS (9.7-12.2) 02/12/18 16:18 INR 1.0 02/12/18 16:18 APTT 41 SECONDS (21-34) H 02/12/18 16:18 Attending/Attestation - Attestation I have personally seen and examined this patient.: Yes I have fully participated in the care of the patient.: Yes I have reviewed all pertinent clinical information, including history, physical exam and plan: Yes Notes (Text): 02/15/18 10:39 I have seen and examined patient with GI fellow. No acute events overnight, she is seen resting in bed comfortably. She complains of new nuno-umbilical pain overnight but denies nausea, vomiting, diarrhea, fever/chills. She is tolerating PO liquids without difficulty. ESRD on HD history of DVT DM / HTN CAD Weight loss, unexplained Anemia, chronic disease - s/p EGD yesterday showing gastritis and duodenitis - Liquid diet as tolerated - H/H stable s/p PRBC transfusion continue to monitor - Awaiting EGD biopsy results - Given abdominal pain, anemia, and unexplained weight loss, will plan for colonoscopy examination tomorrow. Golytely bowel preparation today, NPO after midnight.
[2018-02-15] MEDS ORDERED: EPOETIN ALFA 4,000 UNIT/ML ML Dialysis IV SCH (10:00)
[2018-02-15] MEDS: Multivitamin Vitamin B Complex (Nephro-Vite) Tab PO SCH ×2 (10:32→14:12)
--- NOTE | 2018-02-15 10:48 | CP.PCM.PN ---
Subjective - Date & Time of Evaluation Date of Evaluation: 02/15/18 Time of Evaluation: 07:25 - Subjective Subjective: Progress Note for Dr. France Patient seen and examined at bedside. No acute events reported overnight. Patient denies any signs of bleeding or blood in sputum. She complains of abdominal pain started earlier this morning. Patient denies fever, chills, shortness of breath, chest pain, nausea, vomiting, or diarrhea. Objective - Vital Signs/Intake and Output Vital Signs (last 24 hours): Temp Pulse Resp BP Pulse Ox 98 F 65 18 218/84 H 100 02/15/18 09:15 02/15/18 09:15 02/15/18 09:15 02/15/18 10:00 02/15/18 09:15 Intake and Output: 02/15/18 02/15/18 06:59 18:59 Intake Total 720 Balance 720 - Medications Medications: Current Medications Albuterol/Ipratropium (Duoneb 3 Mg/0.5 Mg (3 Ml) Ud) 3 ml IH RQ4 [facility] Carvedilol (Coreg) 6.25 mg PO BID [facility] Last Admin: 02/15/18 10:31 Dose: 6.25 mg Epoetin Dami (Procrit) 8,000 unit IV TTS [facility] Ferrous Sulfate (Feosol) 325 mg PO DAILY [facility] Last Admin: 02/15/18 10:32 Dose: Not Given Hydralazine HCl (Apresoline) 50 mg PO BID [facility] Last Admin: 02/15/18 10:30 Dose: Not Given Hydralazine HCl (Apresoline) 25 mg PO Q4 PRN PRN Reason: Other Azithromycin 500 mg/ Sodium (Chloride) 250 mls @ 167 mls/hr IVPB Q24H [facility] PRN Reason: Protocol Last Admin: 02/14/18 14:31 Dose: 167 mls/hr Levetiracetam (Keppra) 500 mg PO Q12 [facility] Last Admin: 02/15/18 10:32 Dose: Not Given Losartan Potassium (Cozaar) 50 mg PO DAILY [facility] Last Admin: 02/15/18 10:31 Dose: 50 mg Methadone HCl (Methadone) 10 mg PO DAILY [facility] Last Admin: 02/15/18 10:33 Dose: Not Given Oxycodone/Acetaminophen (Percocet 5/325 Mg Tab) 1 tab PO Q6 PRN PRN Reason: Pain, severe (8-10) Stop: 02/15/18 19:50 Pantoprazole Sodium (Protonix Inj) 40 mg IVP Q12H [facility] Last Admin: 02/15/18 07:05 Dose: 40 mg Polyethylene Glycol/Electrolytes (Golytely) 4,000 ml PO ONCE ONE Stop: 02/15/18 13:01 Rosuvastatin Calcium (Crestor) 5 mg PO HS [facility] Last Admin: 02/14/18 21:36 Dose: 5 mg Sevelamer Carbonate (Renvela) 800 mg PO TIDCC [facility] Last Admin: 02/15/18 08:34 Dose: Not Given Vitamin B Complex/Vit C/Folic Acid (Nephro-Andrew) 1 tab PO DAILY [facility] Last Admin: 02/15/18 10:32 Dose: Not Given - Labs Labs: 02/14/18 10:55 02/14/18 10:55 PT 11.0 SECONDS (9.7-12.2) 02/12/18 16:18 INR 1.0 02/12/18 16:18 APTT 41 SECONDS (21-34) H 02/12/18 16:18 - Additional Findings Additional findings: - Constitutional Appears: Well, No Acute Distress - Head Exam Head Exam: ATRAUMATIC, NORMOCEPHALIC - Eye Exam Eye Exam: Normal appearance - ENT Exam ENT Exam: Mucous Membranes Moist, Normal Exam - Respiratory Exam Respiratory Exam: Clear to Ausculation Bilateral, NORMAL BREATHING PATTERN. absent: Rales, Rhonchi, Wheezes, Respiratory Distress - Cardiovascular Exam Cardiovascular Exam: REGULAR RHYTHM, +S1, +S2 - GI/Abdominal Exam GI & Abdominal Exam: Soft, Tenderness (periumbilical), Normal Bowel Sounds. absent: Distended, Firm, Guarding, Rigid, Organomegaly, Rebound - Extremities Exam Extremities Exam: absent: Joint Swelling, Pedal Edema - Neurological Exam Neurological Exam: Alert, Awake, Oriented x3 - Psychiatric Exam Psychiatric exam: Normal Affect, Normal Mood - Skin Skin Exam: Dry, Intact, Normal Color, Warm Assessment and Plan - Assessment and Plan (Free Text) Assessment: GI bleed -No reported active bleeding today -Postive gastric occult blood on admission -Hgb 9.3 today, stable, s/p transfusion -Endoscopy shows gastritis and duodenitis, f/u biopsy -Planned colonoscopy tomorrow, NPO after MN ESRD on HD -HD today -Nephrology consulted, follow recommendations -Renvela 800mg po TID -Procrit 8000u Dyspnea -Douneb IH Q4 -Azithromycin 500mg Q24h -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 France
--- NOTE | 2018-02-15 12:36 | CP.PCM.CON ---
History of Present Illness - History of Present Illness History of Present Illness: I was asked to see patient by Dr Jamshid France Patient is a 52 year old female with PMH HTn, CAD s/p CABG. ESRD, who presents with GI bleed. Patient describes symptoms with walking one block. She feels symptoms have become progressive. She continues to smoke cigarettes. She is s/ p endoscopy revealing gastritis and duodenitis. Review of Systems - Constitutional Constitutional: absent: As Per HPI, Anorexia, Chills, Daytime Sleepiness, Excessive Sweating, Fatigue, Fever, Frequent Falls, Headache, Increased Appetite , Lethargy, Malaise, Night Sweats, Snoring, Sleep Apnea, Weight Gain, Weight Loss, Weakness, Other - EENT Eyes: absent: As Per HPI, Blind Spots, Blurred Vision, Change in Vision, Decreased Night Vision, Diplopia, Discharge, Dry Eye, Exophthalmos, Floaters, Irritation, Itchy Eyes, Loss of Peripheral Vision, Pain, Photophobia, Requires Corrective Lenses, Sees Flashes, Spots in Vision, Tunnel Vision, Other Visual Disturbances, Loss of Vision, Other Ears: absent: As Per HPI, Decreased Hearing, Ear Discharge, Ear Pain, Tinnitus, Abnormal Hearing, Disequilibrium, Dizziness, Other Nose/Mouth/Throat: absent: As Per HPI, Epistaxis, Nasal Congestion, Nasal Discharge, Nasal Obstruction, Nasal Trauma, Nose Pain, Post Nasal Drip, Sinus Pain, Sinus Pressure, Bleeding Gums, Change in Voice, Dental Pain, Dry Mouth, Dysphagia, Halitosis, Hoarsness, Lip Swelling, Mouth Lesions, Mouth Pain, Odynophagia, Sore Throat, Throat Swelling, Tongue Swelling, Facial Pain, Neck Pain, Neck Mass, Other - Cardiovascular Cardiovascular: Dyspnea - Respiratory Respiratory: Dyspnea - Gastrointestinal Gastrointestinal: absent: As Per HPI, Abdominal Pain, Belching, Bloating, Change in Bowel Habits, Change in Stool Character, Coffee Ground Emesis, Constipation, Cramping, Diarrhea, Dyspepsia, Dysphagia, Early Satiety, Excessive Flatus, Fecal Incontinence, Heartburn, Hematemesis, Hematochezia, Loose Stools, Melena, Nausea, Odynophagia, Temesmus, Vomiting, Other - Genitourinary Genitourinary: absent: As Per HPI, Change in Urinary Stream, Difficulty Urinating, Dysuria, Flank Pain, Hematuria, Pyuria, Nocturia, Urinary Incontinence, Urinary Frequency, Urinary Hesitance, Urinary Urgency, Voiding Freq/Small Amts, Freq UTI, Hx Renal/Bladder Calculi, Hx /Renal Surgery, Bladder Distension, Other - Musculoskeletal Musculoskeletal: absent: As Per HPI, Abnormal Gait, Arthralgias, Atrophy, Back Pain, Deformity, Joint Swelling, Limited Range of Motion, Loss of Height, Muscle Cramps, Muscle Weakness, Myalgias, Neck Pain, Numbness, Radiating Pain into Limb, Stiffness, Tingling, Other - Integumentary Integumentary: absent: As Per HPI, Acne, Alopecia, Bleeding Lesions, Change in Hair, Change in Nails, Change in Pigmentation, Changing Lesions, Dry Skin, Erythema, Furuncle, Hirsutism, Lesions, New Lesions, Non-Healing Lesions, Photosensitivity, Pruritus, Rash, Skin Pain, Skin Ulcer, Sores, Striae, Swelling , Unusual Bruising, Wounds, Jaundice, Other - Neurological Neurological: absent: As Per HPI, Abnormal Gait, Abnormal Hearing, Abnormal Movements, Abnormal Speech, Behavioral Changes, Burning Sensations, Confusion, Convulsions, Disequilibrium, Dizziness, Numbness, Focal Weakness, Frequent Falls , Headaches, Lack of Coordination, Loss of Vision, Memory Loss, Paresthesias, Radicular Pain, Restless Legs, Sensory Deficit, Syncope, Tingling, Tremor, Vertigo, Weakness, Other Visual Disturbances, Other - Psychiatric Psychiatric: absent: As Per HPI, Abnormal Sleep Pattern, Anhedonia, Anxiety, Auditory Hallucinations, Behavioral Changes, Change in Appetite, Change in Libido, Confusion, Depression, Difficulty Concentrating, Hallucinations, Homicidal Ideation, Hopelessness, Irritability, Memory Loss, Mood Swings, Panic Attacks, Paranoia, Suicidal Ideation, Visual Hallucinations, Tactile Hallucinations, Other - Endocrine Endocrine: absent: As Per HPI, Change in Body Appearance, Change in Libido, Cold Intolorance, Deepening of Voice, Excessive Sweating, Fatigue, Flushing, Heat Intolorance, Increase in Ring/Shoe/Hat Size, Palpitations, Polydipsia, Polyphagia, Polyuria, Other - Hematologic/Lymphatic Hematologic: absent: As Per HPI, Easy Bleeding, Easy Bruising, Lymphadenopathy, Other Past Patient History - Past Medical History & Family History Past Medical History?: Yes - Past Social History Smoking Status: Former Smoker - CARDIAC Hx Cardiac Disorders: Yes Hx Heart Attack: Yes Hx Hypertension: Yes Hx Peripheral Vascular Disease: Yes - PULMONARY Hx Respiratory Disorders: Yes Hx Chronic Obstructive Pulmonary Disease (COPD): Yes - NEUROLOGICAL Hx Neurological Disorder: No - HEENT Hx HEENT Problems: No - RENAL Hx Chronic Kidney Disease: Yes Hx Dialysis: Yes Type of Dialysis Access: LAV shunt Date of Last Dialysis Treatment: 02/10/18 - ENDOCRINE/METABOLIC Hx Endocrine Disorders: Yes Hx Diabetes Mellitus Type 1: Yes - HEMATOLOGICAL/ONCOLOGICAL Hx Blood Disorders: No - INTEGUMENTARY Hx Dermatological Problems: No - MUSCULOSKELETAL/RHEUMATOLOGICAL Hx Musculoskeletal Disorders: Yes Hx Falls: No Hx Osteomyelitis: Yes (left toe amputations) - GASTROINTESTINAL Hx Gastrointestinal Disorders: Yes Hx Gastroesophageal Reflux: Yes - GENITOURINARY/GYNECOLOGICAL Hx Genitourinary Disorders: No - PSYCHIATRIC Hx Psychophysiologic Disorder: Yes Hx Substance Use: Yes - SURGICAL HISTORY Hx Surgeries: Yes Hx Amputation: Yes Other/Comment: left toes amputation - ANESTHESIA Hx Anesthesia: Yes Hx Anesthesia Reactions: No Hx Malignant Hyperthermia: No Has any member of the family had a problem w/ anesthesia?: No Meds Allergies/Adverse Reactions: Allergies Allergy/AdvReac Type Severity Reaction Status Date / Time No Known Allergies Allergy Unverified 02/12/18 15:13 - Medications Medications: Current Medications Albuterol/Ipratropium (Duoneb 3 Mg/0.5 Mg (3 Ml) Ud) 3 ml IH RQ4 [facility] Last Admin: 02/15/18 11:09 Dose: Not Given Carvedilol (Coreg) 6.25 mg PO BID [facility] Last Admin: 02/15/18 10:31 Dose: 6.25 mg Epoetin Dami (Procrit) 8,000 unit IV TTS [facility] Last Admin: 02/15/18 11:05 Dose: 8,000 unit Ferrous Sulfate (Feosol) 325 mg PO DAILY [facility] Last Admin: 02/15/18 10:32 Dose: Not Given Hydralazine HCl (Apresoline) 50 mg PO BID [facility] Last Admin: 02/15/18 11:12 Dose: 50 mg Hydralazine HCl (Apresoline) 25 mg PO Q4 PRN PRN Reason: Other Azithromycin 500 mg/ Sodium (Chloride) 250 mls @ 167 mls/hr IVPB Q24H [facility] PRN Reason: Protocol Last Admin: 02/14/18 14:31 Dose: 167 mls/hr Levetiracetam (Keppra) 500 mg PO Q12 [facility] Last Admin: 02/15/18 10:32 Dose: Not Given Losartan Potassium (Cozaar) 50 mg PO DAILY [facility] Last Admin: 02/15/18 10:31 Dose: 50 mg Methadone HCl (Methadone) 10 mg PO DAILY [facility] Last Admin: 02/15/18 10:33 Dose: Not Given Oxycodone/Acetaminophen (Percocet 5/325 Mg Tab) 1 tab PO Q6 PRN PRN Reason: Pain, severe (8-10) Stop: 02/15/18 19:50 Pantoprazole Sodium (Protonix Inj) 40 mg IVP Q12H [facility] Last Admin: 02/15/18 07:05 Dose: 40 mg Polyethylene Glycol/Electrolytes (Golytely) 4,000 ml PO ONCE ONE Stop: 02/15/18 13:01 Rosuvastatin Calcium (Crestor) 5 mg PO HS [facility] Last Admin: 02/14/18 21:36 Dose: 5 mg Sevelamer Carbonate (Renvela) 800 mg PO TIDCC [facility] Last Admin: 02/15/18 08:34 Dose: Not Given Vitamin B Complex/Vit C/Folic Acid (Nephro-Andrew) 1 tab PO DAILY [facility] Last Admin: 02/15/18 10:32 Dose: Not Given Physical Exam - Constitutional Appears: Non-toxic - Head Exam Head Exam: NORMAL INSPECTION - Eye Exam Eye Exam: Normal appearance - ENT Exam ENT Exam: Mucous Membranes Moist - Neck Exam Neck exam: Positive for: Full Rom - Respiratory Exam Respiratory Exam: Decreased Breath Sounds - Cardiovascular Exam Cardiovascular Exam: REGULAR RHYTHM - GI/Abdominal Exam GI & Abdominal Exam: Normal Bowel Sounds - Rectal Exam Rectal Exam: Deferred - Extremities Exam Extremities exam: Positive for: normal inspection - Back Exam Back exam: NORMAL INSPECTION - Neurological Exam Neurological exam: Alert, Oriented x3 - Psychiatric Exam Psychiatric exam: Normal Affect - Skin Skin Exam: Normal Color Results - Vital Signs Recent Vital Signs: Last Vital Signs Temp 98 F 02/15/18 09:15 Pulse 65 02/15/18 09:15 Resp 18 02/15/18 09:15 BP 207/89 H 02/15/18 12:15 Pulse Ox 100 02/15/18 09:15 - Labs Result Diagrams: 02/14/18 10:55 02/14/18 10:55 Labs: Laboratory Results - last 24 hr 02/13/18 02/14/18 02/14/18 11:47 17:28 22:32 POC Glucose (mg/dL) 90 120 H PTH Intact Whole Molec 382 H 02/15/18 02/15/18 06:18 11:37 POC Glucose (mg/dL) 89 77 PTH Intact Whole Molec - EKG Data EKG shows normal: Sinus rhythm Assessment & Plan (1) Dyspnea Assessment and Plan: patient has a cardiac history. recommend echocardiogram Status: Acute (2) CAD (coronary artery disease) Assessment and Plan: would benefit from aspirin therapy if cleared by GI Status: Acute (3) HTN (hypertension) Assessment and Plan: blood pressure control Status: Acute
[2018-02-15] MEDS ORDERED: Peg-Electrolyte Oral Soln 4L (Golytely) PO ONE (13:00)
[2018-02-15 13:16] LABS: BASO % 0.6 % (0.0-2.0); EOS # 0.1 K/uL (0.0-0.7); EOS % 1.9 % (0.0-4.0); HEMOGLOBIN 9.3 g/dL (11.0-16.0); LYMPH # 0.9 K/uL (1.0-4.3); LYMPH % 17.6 % (20.0-40.0); MEAN CORPUSCULAR HEMOGLOBIN 29.9 pg (27.0-31.0); MEAN CORPUSCULAR HGB CONC 32.8 g/dL (33.0-37.0); MEAN PLATELET VOLUME 7.2 fL (7.2-11.7); MONO # 0.3 K/uL (0.0-0.8); MONO % 6.6 % (0.0-10.0); NEUT # 3.7 K/uL (1.8-7.0); NEUT % 73.3 % (50.0-75.0); NRBC % 0.1 % (0.0-2.0); RBC 3.1 Mil/uL (3.80-5.20); RED CELL DISTRIBUTION WIDTH 19.2 % (11.5-14.5); WHITE BLOOD COUNT 5.1 K/uL (4.8-10.8)
[2018-02-15 13:35] LABS: CALCIUM 8.4 mg/dl (8.6-10.4)
[2018-02-15] MEDS: Azithromycin 500 MG in Sodium Chloride 0.9% 250 ML IVPB SCH (14:07)
[2018-02-15] MEDS ORDERED: Potassium Chloride 20 mEq ER Tab PO ONE (14:38)
--- NOTE | 2018-02-15 14:47 | CP.PCM.PN ---
Subjective - Date & Time of Evaluation Date of Evaluation: 02/15/18 Time of Evaluation: 14:46 - Subjective Subjective: Nephrology Consultation Note: Assessment: stable Fluid overload with ? COPD exacerbation ? upper GI bleed Diabetic chronic Kidney Disease (E11.22) Hypertensive Chronic Kidney Disease (I12.0) End stage renal disease (N18.6) dependence on hemodialysis (Z99.2) (TTS) via AVF Anemia (D64.9), Hyperphosphatemia (E83.39), Secondary Hyperparathyroidism (E21.1 ), HTN (I12.0) CAD s/p CABG, DVT, Smoker Plan: Will plan for HD today as TTS schedule as ordered. Continue with Nephrovite 1 tab/day. extra HD tomorrow PRBC as needed for anemia. On MINGO with HD as last Hb 9.3 Continue with phos binders as adjusted, last phos level 6 BP control with meds as ordered. Patient not on RAAS alisha, hence added losartan, changed hydralazine and coreg to bid Glycemic control, Dialysis consistent diet Further work up/management as per primary team Dose meds/antibiotics (if needed) for ESRD status. Avoid fleets enema/magnesium based laxatives. appreciate GI input, pulmonary, ID consult Thanks for allowing me to participate in care of your patient. Will follow patient with you. Please call if any Qs Dr Lb West Office: [phone] Chief Complaint; none today HPI: Pt is a 52 F with hx of ESRD on hemodialysis (TTS) via AVF @ [facility] with Dr Li , last dialysis sat, chronic anemia, hyperphosphatemia, secondary hyperparathyroidism, Diabetes Mellitus, hypertension, smoker, DVT, CAD s/p CABG presented with complaints of blood in vomitus. Renal consult requested for ESRD management. pt c/o SOB and leg swelling no further blood in vomitus ROS: Cardiovascular: No chest pain. Pulmonary: c/o shortness of breath but better Gastrointestinal: denies abdominal pain No nausea. improved vomiting. Genitourinary: No pain while urinating. Denies blood in urine. All other negative except as mentioned in HPI. reported weight loss Physical Examination: General Appearance: Comfortable, in no acute respiratory distress, co-operative . Vitals reviewed and noted as below Head; Atraumatic, normocephalic ENT: no ulcers no thrush. Tongue is midline. Oropharynx: no rash or ulcers. EYES: Pupils are equal, round and reactive to light accommodation. Eye muscles and extraocular movement intact. Sclera is anicteric. Neck; supple no lymphadenopathy, no thyromegaly or bruit Lungs: Normal respiratory rate/effort. Breath sounds bilateral with wheeze and rales at bases Heart: Normal rate. s1s2 normal. No rub or gallop. Extremities: 1+ edema. No varicose veins Neurological: Patient is alert, awake and oriented to person, place and time. No focal deficit. Strength bilateral appropriate and equal Skin: Warm and dry. Normal turgor. No rash. Palpitation: Normal elasticity for age Abdomen: Abdomen is soft. Bowel sounds +. There is no abdominal tenderness, no guarding/rigidity or organomegaly Psych: normal insight and normal affect/mood MSK: no joint tenderness or swelling. Digits and nails normal, no deformity : kidney or bladder not palpable Access: AVF Labs/imaging reviewed. Past medical history, past surgical history, family history, social history, allergy reviewed and noted as below Family Hx: no hx of CKD. Non contributory Objective - Vital Signs/Intake and Output Vital Signs (last 24 hours): Temp Pulse Resp BP Pulse Ox 98 F 65 20 177/69 H 100 02/15/18 12:45 02/15/18 13:07 02/15/18 12:45 02/15/18 14:31 02/15/18 12:45 Intake and Output: 02/15/18 02/15/18 06:59 18:59 Intake Total 720 Balance 720 - Medications Medications: Current Medications Albuterol/Ipratropium (Duoneb 3 Mg/0.5 Mg (3 Ml) Ud) 3 ml IH RQ4 [facility] Last Admin: 02/15/18 11:09 Dose: Not Given Carvedilol (Coreg) 6.25 mg PO BID [facility] Last Admin: 02/15/18 10:31 Dose: 6.25 mg Epoetin Dami (Procrit) 8,000 unit IV TTS [facility] Last Admin: 02/15/18 11:05 Dose: 8,000 unit Ferrous Sulfate (Feosol) 325 mg PO DAILY [facility] Last Admin: 02/15/18 14:12 Dose: 325 mg Hydralazine HCl (Apresoline) 50 mg PO BID [facility] Last Admin: 02/15/18 11:12 Dose: 50 mg Hydralazine HCl (Apresoline) 25 mg PO Q4 PRN PRN Reason: Other Azithromycin 500 mg/ Sodium (Chloride) 250 mls @ 167 mls/hr IVPB Q24H [facility] PRN Reason: Protocol Last Admin: 02/15/18 14:07 Dose: 167 mls/hr Levetiracetam (Keppra) 500 mg PO Q12 [facility] Last Admin: 02/15/18 10:32 Dose: Not Given Losartan Potassium (Cozaar) 50 mg PO DAILY [facility] Last Admin: 02/15/18 10:31 Dose: 50 mg Methadone HCl (Methadone) 10 mg PO DAILY [facility] Last Admin: 02/15/18 10:33 Dose: Not Given Oxycodone/Acetaminophen (Percocet 5/325 Mg Tab) 1 tab PO Q6 PRN PRN Reason: Pain, severe (8-10) Stop: 02/15/18 19:50 Pantoprazole Sodium (Protonix Inj) 40 mg IVP Q12H [facility] Last Admin: 02/15/18 07:05 Dose: 40 mg Rosuvastatin Calcium (Crestor) 5 mg PO HS [facility] Last Admin: 02/14/18 21:36 Dose: 5 mg Sevelamer Carbonate (Renvela) 800 mg PO TIDCC [facility] Last Admin: 02/15/18 14:12 Dose: 800 mg Vitamin B Complex/Vit C/Folic Acid (Nephro-Andrew) 1 tab PO DAILY [facility] Last Admin: 02/15/18 14:12 Dose: 1 tab - Labs Labs: 02/15/18 13:09 02/15/18 13:09 PT 11.0 SECONDS (9.7-12.2) 02/12/18 16:18 INR 1.0 02/12/18 16:18 APTT 41 SECONDS (21-34) H 02/12/18 16:18
--- NOTE | 2018-02-15 17:47 | CP.PCM.PN ---
Subjective - Date & Time of Evaluation Date of Evaluation: 02/15/18 Time of Evaluation: 17:47 Objective - Vital Signs/Intake and Output Vital Signs (last 24 hours): Temp Pulse Resp BP Pulse Ox 98 F 63 20 179/80 H 100 02/15/18 15:56 02/15/18 15:56 02/15/18 15:56 02/15/18 15:56 02/15/18 15:56 Intake and Output: 02/15/18 02/15/18 06:59 18:59 Intake Total 720 410 Balance 720 410 - Medications Medications: Current Medications Albuterol/Ipratropium (Duoneb 3 Mg/0.5 Mg (3 Ml) Ud) 3 ml IH RQ4 [facility] Last Admin: 02/15/18 15:29 Dose: Not Given Carvedilol (Coreg) 6.25 mg PO BID [facility] Last Admin: 02/15/18 17:31 Dose: 6.25 mg Epoetin Dami (Procrit) 8,000 unit IV TTS [facility] Last Admin: 02/15/18 11:05 Dose: 8,000 unit Ferrous Sulfate (Feosol) 325 mg PO DAILY [facility] Last Admin: 02/15/18 14:12 Dose: 325 mg Hydralazine HCl (Apresoline) 50 mg PO BID [facility] Last Admin: 02/15/18 17:31 Dose: 50 mg Hydralazine HCl (Apresoline) 25 mg PO Q4 PRN PRN Reason: Other Azithromycin 500 mg/ Sodium (Chloride) 250 mls @ 167 mls/hr IVPB Q24H [facility] PRN Reason: Protocol Last Admin: 02/15/18 14:07 Dose: 167 mls/hr Levetiracetam (Keppra) 500 mg PO Q12 [facility] Last Admin: 02/15/18 10:32 Dose: Not Given Losartan Potassium (Cozaar) 50 mg PO DAILY [facility] Last Admin: 02/15/18 10:31 Dose: 50 mg Methadone HCl (Methadone) 10 mg PO DAILY [facility] Last Admin: 02/15/18 10:33 Dose: Not Given Oxycodone/Acetaminophen (Percocet 5/325 Mg Tab) 1 tab PO Q6 PRN PRN Reason: Pain, severe (8-10) Stop: 02/15/18 19:50 Pantoprazole Sodium (Protonix Inj) 40 mg IVP Q12H [facility] Last Admin: 02/15/18 07:05 Dose: 40 mg Rosuvastatin Calcium (Crestor) 5 mg PO HS [facility] Last Admin: 02/14/18 21:36 Dose: 5 mg Sevelamer Carbonate (Renvela) 800 mg PO TIDCC [facility] Last Admin: 02/15/18 16:00 Dose: 800 mg Vitamin B Complex/Vit C/Folic Acid (Nephro-Andrew) 1 tab PO DAILY [facility] Last Admin: 02/15/18 14:12 Dose: 1 tab - Labs Labs: 02/15/18 13:09 02/15/18 13:09 PT 11.0 SECONDS (9.7-12.2) 02/12/18 16:18 INR 1.0 02/12/18 16:18 APTT 41 SECONDS (21-34) H 02/12/18 16:18
--- NOTE | 2018-02-15 18:28 | CP.PCM.PN ---
Subjective - Date & Time of Evaluation Date of Evaluation: 02/15/18 Time of Evaluation: 11:00 - Subjective Subjective: clinically same Objective - Vital Signs/Intake and Output Vital Signs (last 24 hours): Temp Pulse Resp BP Pulse Ox 98 F 63 20 179/80 H 100 02/15/18 15:56 02/15/18 15:56 02/15/18 15:56 02/15/18 15:56 02/15/18 15:56 Intake and Output: 02/15/18 02/15/18 06:59 18:59 Intake Total 720 410 Balance 720 410 - Medications Medications: Current Medications Albuterol/Ipratropium (Duoneb 3 Mg/0.5 Mg (3 Ml) Ud) 3 ml IH RQ4 [facility] Last Admin: 02/15/18 15:29 Dose: Not Given Carvedilol (Coreg) 6.25 mg PO BID [facility] Last Admin: 02/15/18 17:31 Dose: 6.25 mg Epoetin Dami (Procrit) 8,000 unit IV TTS [facility] Last Admin: 02/15/18 11:05 Dose: 8,000 unit Ferrous Sulfate (Feosol) 325 mg PO DAILY [facility] Last Admin: 02/15/18 14:12 Dose: 325 mg Hydralazine HCl (Apresoline) 50 mg PO BID [facility] Last Admin: 02/15/18 17:31 Dose: 50 mg Hydralazine HCl (Apresoline) 25 mg PO Q4 PRN PRN Reason: Other Azithromycin 500 mg/ Sodium (Chloride) 250 mls @ 167 mls/hr IVPB Q24H [facility] PRN Reason: Protocol Last Admin: 02/15/18 14:07 Dose: 167 mls/hr Levetiracetam (Keppra) 500 mg PO Q12 [facility] Last Admin: 02/15/18 10:32 Dose: Not Given Losartan Potassium (Cozaar) 50 mg PO DAILY [facility] Last Admin: 02/15/18 10:31 Dose: 50 mg Methadone HCl (Methadone) 10 mg PO DAILY [facility] Last Admin: 02/15/18 10:33 Dose: Not Given Oxycodone/Acetaminophen (Percocet 5/325 Mg Tab) 1 tab PO Q6 PRN PRN Reason: Pain, severe (8-10) Stop: 02/15/18 19:50 Pantoprazole Sodium (Protonix Inj) 40 mg IVP Q12H [facility] Last Admin: 02/15/18 07:05 Dose: 40 mg Rosuvastatin Calcium (Crestor) 5 mg PO HS [facility] Last Admin: 02/14/18 21:36 Dose: 5 mg Sevelamer Carbonate (Renvela) 800 mg PO TIDCC [facility] Last Admin: 02/15/18 16:00 Dose: 800 mg Vitamin B Complex/Vit C/Folic Acid (Nephro-Andrew) 1 tab PO DAILY [facility] Last Admin: 02/15/18 14:12 Dose: 1 tab - Labs Labs: 02/15/18 13:09 02/15/18 13:09 PT 11.0 SECONDS (9.7-12.2) 02/12/18 16:18 INR 1.0 02/12/18 16:18 APTT 41 SECONDS (21-34) H 02/12/18 16:18 - Constitutional Appears: Well - Head Exam Head Exam: ATRAUMATIC, NORMAL INSPECTION, NORMOCEPHALIC - Eye Exam Eye Exam: EOMI, Normal appearance, PERRL Pupil Exam: NORMAL ACCOMODATION, PERRL - ENT Exam ENT Exam: Mucous Membranes Moist, Normal Exam - Neck Exam Neck Exam: Full ROM, Normal Inspection. absent: Lymphadenopathy - Respiratory Exam Respiratory Exam: Decreased Breath Sounds - Cardiovascular Exam Cardiovascular Exam: REGULAR RHYTHM, +S1, +S2 - GI/Abdominal Exam GI & Abdominal Exam: Soft, Diminished Bowel Sounds - Rectal Exam Rectal Exam: Deferred
[2018-02-15] MEDS: Oxycodone/Acetaminophen 5/325 mg Tab PO PRN (20:30)
[2018-02-16] MEDS: Albuterol-Ipratrop 3 mg / 0.5 (3 ml) UD IH SCH ×6 (00:16→19:20)
[2018-02-16] MEDS: Oxycodone/Acetaminophen 5/325 mg Tab PO PRN ×2 (05:51→23:31)
[2018-02-16] MEDS ORDERED: Bisacodyl 5mg EC Tab PO STA (07:49)
[2018-02-16] MEDS ORDERED: Sodium Chloride 0.9% 1,000 ML IV ONE (09:00)
[2018-02-16] MEDS ORDERED: Propofol 10 mg/ml Inj (20 ML) ONE (09:03)
[2018-02-16] MEDS ORDERED: Iohexol 240 (50 ml) PO ONE (10:15)
[2018-02-16] MEDS: Multivitamin Vitamin B Complex (Nephro-Vite) Tab PO SCH (10:43)
--- NOTE | 2018-02-16 11:21 | CP.PCM.PN ---
Subjective - Date & Time of Evaluation Date of Evaluation: 02/16/18 Time of Evaluation: 11:21 - Subjective Subjective: Progress Note for Dr. France Patient seen and examined at bedside. Patient is requesting pain medication for her of bilateral feet pain. She continues to deny further bleeding. Patient denies fever, chills, headache, shortness of breath, chest pain, nausea, or vomiting. Objective - Vital Signs/Intake and Output Vital Signs (last 24 hours): Temp Pulse Resp BP Pulse Ox 99.1 F 60 18 182/68 H 100 02/16/18 09:15 02/16/18 09:45 02/16/18 09:45 02/16/18 09:45 02/16/18 09:45 Intake and Output: 02/16/18 02/16/18 06:59 18:59 Intake Total 3000 Balance 3000 - Medications Medications: Current Medications Albuterol/Ipratropium (Duoneb 3 Mg/0.5 Mg (3 Ml) Ud) 3 ml IH RQ4 [facility] Last Admin: 02/16/18 10:59 Dose: Not Given Carvedilol (Coreg) 6.25 mg PO BID [facility] Last Admin: 02/16/18 10:42 Dose: 6.25 mg Epoetin Dami (Procrit) 8,000 unit IV TTS [facility] Last Admin: 02/15/18 11:05 Dose: 8,000 unit Ferrous Sulfate (Feosol) 325 mg PO DAILY [facility] Last Admin: 02/16/18 10:42 Dose: 325 mg Hydralazine HCl (Apresoline) 50 mg PO BID [facility] Last Admin: 02/16/18 10:42 Dose: 50 mg Hydralazine HCl (Apresoline) 25 mg PO Q4 PRN PRN Reason: Other Last Admin: 02/16/18 05:51 Dose: 25 mg Azithromycin 500 mg/ Sodium (Chloride) 250 mls @ 167 mls/hr IVPB Q24H [facility] PRN Reason: Protocol Last Admin: 02/15/18 14:07 Dose: 167 mls/hr Levetiracetam (Keppra) 500 mg PO Q12 [facility] Last Admin: 02/16/18 10:42 Dose: 500 mg Losartan Potassium (Cozaar) 50 mg PO DAILY [facility] Last Admin: 02/16/18 10:42 Dose: 50 mg Methadone HCl (Methadone) 10 mg PO DAILY [facility] Last Admin: 02/16/18 10:44 Dose: 10 mg Oxycodone/Acetaminophen (Percocet 5/325 Mg Tab) 1 tab PO Q6H PRN PRN Reason: Pain, moderate (4-7) Stop: 02/18/18 20:18 Last Admin: 02/16/18 05:51 Dose: 1 tab Pantoprazole Sodium (Protonix Inj) 40 mg IVP Q12H [facility] Last Admin: 02/16/18 10:44 Dose: 40 mg Rosuvastatin Calcium (Crestor) 5 mg PO HS [facility] Last Admin: 02/15/18 21:15 Dose: 5 mg Sevelamer Carbonate (Renvela) 800 mg PO TIDCC [facility] Last Admin: 02/16/18 10:43 Dose: 800 mg Vitamin B Complex/Vit C/Folic Acid (Nephro-Andrew) 1 tab PO DAILY [facility] Last Admin: 02/16/18 10:43 Dose: 1 tab - Labs Labs: 02/15/18 13:09 02/15/18 13:09 PT 11.0 SECONDS (9.7-12.2) 02/12/18 16:18 INR 1.0 02/12/18 16:18 APTT 41 SECONDS (21-34) H 02/12/18 16:18 - Additional Findings Additional findings: - Constitutional Appears: Well, No Acute Distress - Head Exam Head Exam: ATRAUMATIC, NORMOCEPHALIC - Eye Exam Eye Exam: Normal appearance - ENT Exam ENT Exam: Mucous Membranes Moist, Normal Exam - Respiratory Exam Respiratory Exam: Clear to Ausculation Bilateral, NORMAL BREATHING PATTERN. absent: Rales, Rhonchi, Wheezes, Respiratory Distress - Cardiovascular Exam Cardiovascular Exam: REGULAR RHYTHM, +S1, +S2 - GI/Abdominal Exam GI & Abdominal Exam: Soft, Tenderness (periumbilical), Normal Bowel Sounds. absent: Distended, Firm, Guarding, Rigid, Organomegaly, Rebound - Extremities Exam Extremities Exam: absent: Joint Swelling, Pedal Edema - Neurological Exam Neurological Exam: Alert, Awake, Oriented x3 - Psychiatric Exam Psychiatric exam: Normal Affect, Normal Mood - Skin Skin Exam: Dry, Intact, Normal Color, Warm Assessment and Plan - Assessment and Plan (Free Text) Assessment: GI bleed -No reported active bleeding today -Postive gastric occult blood on admission -Hgb 9.3 today, stable, s/p transfusion -Endoscopy shows gastritis and duodenitis, f/u biopsy -Aborted colonoscopy this morning due to large amount of stool in left colon ESRD on HD -HD today -Nephrology consulted, follow recommendations -Renvela 800mg po TID -Procrit 8000u Dyspnea -Douneb IH Q4 -Azithromycin 500mg Q24h -CXR shows 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 France
[2018-02-16] MEDS ORDERED: Gentamicin 160 MG in Sodium Chloride 0.9% 100 ML IVPB ONE (11:39)
--- NOTE | 2018-02-16 12:13 | RAD ---
HISTORY: shortness of breath COMPARISON: 02/12/2018 FINDINGS: LUNGS: Persistent right basilar opacity. No silhouetting of right heart border. Likely right lower lobe infiltrate. Followup advised. Slightly improved compared to prior examination. No other infiltrate identified. PLEURA: No significant pleural effusion identified, no pneumothorax apparent. CARDIOVASCULAR: Normal heart size. CABG. No congestive change. OSSEOUS STRUCTURES: No significant abnormalities. VISUALIZED UPPER ABDOMEN: Normal. OTHER FINDINGS: None. IMPRESSION: Probable right lower lobe infiltrate, improved compared to prior examination. Follow-up advised.
[2018-02-16] MEDS ORDERED: Iodixanol 320 MG/ML 100 ML BOTTLE IV ONE (14:58)
--- NOTE | 2018-02-16 15:03 | CP.PCM.PN ---
Subjective - Date & Time of Evaluation Date of Evaluation: 02/16/18 Time of Evaluation: 15:02 - Subjective Subjective: Nephrology Consultation Note: Assessment: stable Fluid overload with ? COPD exacerbation upper GI bleed Diabetic chronic Kidney Disease (E11.22) Hypertensive Chronic Kidney Disease (I12.0) End stage renal disease (N18.6) dependence on hemodialysis (Z99.2) (TTS) via AVF Anemia (D64.9), Hyperphosphatemia (E83.39), Secondary Hyperparathyroidism (E21.1 ), HTN (I12.0) CAD s/p CABG, DVT, Smoker Plan: Will plan for HD tomorrow as TTS schedule as ordered. Continue with Nephrovite 1 tab/day. extra HD session today PRBC as needed for anemia. On MINGO with HD as last Hb 9.3 Continue with phos binders as adjusted, last phos level 6 BP control with meds as ordered. Increased losartan 100 mg/day, changed hydralazine and coreg to bid Glycemic control, Dialysis consistent diet Further work up/management as per primary team Dose meds/antibiotics (if needed) for ESRD status. Avoid fleets enema/magnesium based laxatives. appreciate GI input, pulmonary, ID consult Thanks for allowing me to participate in care of your patient. Will follow patient with you. Please call if any Qs Dr Lb West Office: [phone] Chief Complaint; none today HPI: Pt is a 52 F with hx of ESRD on hemodialysis (TTS) via [place] [place] [facility] [place] , last dialysis sat, chronic anemia, hyperphosphatemia, secondary hyperparathyroidism, Diabetes Mellitus, hypertension, smoker, DVT, CAD s/p CABG presented with complaints of blood in vomitus. Renal consult requested for ESRD management. pt c/o SOB and leg swelling no further blood in vomitus ROS: Cardiovascular: No chest pain. Pulmonary: c/o shortness of breath but better Gastrointestinal: denies abdominal pain No nausea. improved vomiting. Genitourinary: No pain while urinating. Denies blood in urine. All other negative except as mentioned in HPI. reported weight loss Physical Examination: General Appearance: Comfortable, in no acute respiratory distress, co-operative . Vitals reviewed and noted as below Head; Atraumatic, normocephalic ENT: no ulcers no thrush. Tongue is midline. Oropharynx: no rash or ulcers. EYES: Pupils are equal, round and reactive to light accommodation. Eye muscles and extraocular movement intact. Sclera is anicteric. Neck; supple no lymphadenopathy, no thyromegaly or bruit Lungs: Normal respiratory rate/effort. Breath sounds bilateral with wheeze and rales at bases Heart: Normal rate. s1s2 normal. No rub or gallop. Extremities: 1+ edema. No varicose veins Neurological: Patient is alert, awake and oriented to person, place and time. No focal deficit. Strength bilateral appropriate and equal Skin: Warm and dry. Normal turgor. No rash. Palpitation: Normal elasticity for age Abdomen: Abdomen is soft. Bowel sounds +. There is no abdominal tenderness, no guarding/rigidity or organomegaly Psych: normal insight and normal affect/mood MSK: no joint tenderness or swelling. Digits and nails normal, no deformity : kidney or bladder not palpable Access: AVF Labs/imaging reviewed. Past medical history, past surgical history, family history, social history, allergy reviewed and noted as below Family Hx: no hx of CKD. Non contributory Objective - Vital Signs/Intake and Output Vital Signs (last 24 hours): Temp Pulse Resp BP Pulse Ox 99.1 F 60 18 182/68 H 100 02/16/18 09:15 02/16/18 09:45 02/16/18 09:45 02/16/18 09:45 02/16/18 09:45 Intake and Output: 02/16/18 02/16/18 06:59 18:59 Intake Total 3000 500 Balance 3000 500 - Medications Medications: Current Medications Albuterol/Ipratropium (Duoneb 3 Mg/0.5 Mg (3 Ml) Ud) 3 ml IH RQ4 [facility] Last Admin: 02/16/18 10:59 Dose: Not Given Carvedilol (Coreg) 6.25 mg PO BID [facility] Last Admin: 02/16/18 10:42 Dose: 6.25 mg Epoetin Dami (Procrit) 8,000 unit IV TTS [facility] Last Admin: 02/15/18 11:05 Dose: 8,000 unit Ferrous Sulfate (Feosol) 325 mg PO DAILY [facility] Last Admin: 02/16/18 10:42 Dose: 325 mg Hydralazine HCl (Apresoline) 50 mg PO BID [facility] Last Admin: 02/16/18 10:42 Dose: 50 mg Hydralazine HCl (Apresoline) 25 mg PO Q4 PRN PRN Reason: Other Last Admin: 02/16/18 05:51 Dose: 25 mg Gentamicin Sulfate 80 mg/ (Sodium Chloride) 102 mls @ 100 mls/hr IVPB TuThSa [facility] PRN Reason: Protocol Levetiracetam (Keppra) 500 mg PO Q12 [facility] Last Admin: 02/16/18 10:42 Dose: 500 mg Losartan Potassium (Cozaar) 100 mg PO QPM [facility] Methadone HCl (Methadone) 10 mg PO DAILY [facility] Last Admin: 02/16/18 10:44 Dose: 10 mg Oxycodone/Acetaminophen (Percocet 5/325 Mg Tab) 1 tab PO Q6H PRN PRN Reason: Pain, moderate (4-7) Stop: 02/18/18 20:18 Last Admin: 02/16/18 05:51 Dose: 1 tab Pantoprazole Sodium (Protonix Inj) 40 mg IVP Q12H [facility] Last Admin: 02/16/18 10:44 Dose: 40 mg Rosuvastatin Calcium (Crestor) 5 mg PO HS [facility] Last Admin: 02/15/18 21:15 Dose: 5 mg Sevelamer Carbonate (Renvela) 800 mg PO TIDCC [facility] Last Admin: 02/16/18 13:00 Dose: 800 mg Vitamin B Complex/Vit C/Folic Acid (Nephro-Andrew) 1 tab PO DAILY [facility] Last Admin: 02/16/18 10:43 Dose: 1 tab - Labs Labs: 02/15/18 13:09 02/15/18 13:09 PT 11.0 SECONDS (9.7-12.2) 02/12/18 16:18 INR 1.0 02/12/18 16:18 APTT 41 SECONDS (21-34) H 02/12/18 16:18
--- NOTE | 2018-02-16 15:40 | CP.PCM.CON ---
History of Present Illness - History of Present Illness History of Present Illness: Podiatry Consult note: Dr. Johnson 52 year old female patient with PMHx of hypertension, diabetes, CVA, CAD, ESRD on HD, DVT,and tobacco abuse was seen and evaluated at bedside for left plantar foot hyperkeratosis. Patient reports that she came to the hospital because she started coughing blood. Patient reports that she has had many surgeries on both of her feet. Reports that she usually sees Dr. Cr for the callus on the bottom of the foot. Denies of any pain to the feet today. Reports that her legs swell up because of the kidney problem. Denies of having recent F/N/V/C/SOB. Denies of any other pedal complains at this time. PMHx: hypertension, diabetes, CVA, CAD, ESRD on HD, DVT,and tobacco abuse PSHx: CABG, L foot TMA, right foot ankle fusion Allergies: NKDA SHx: denies ETOH use, former tobacco user, quit 4 years ago, smoked 1 ppd for 30 years, former illicit drug use- IV heroin, no use in 8 years Review of Systems - Constitutional Constitutional: As Per HPI Past Patient History - Past Medical History & Family History Past Medical History?: Yes - Past Social History Smoking Status: Former Smoker - CARDIAC Hx Cardiac Disorders: Yes Hx Heart Attack: Yes Hx Hypertension: Yes Hx Peripheral Vascular Disease: Yes - PULMONARY Hx Respiratory Disorders: Yes Hx Chronic Obstructive Pulmonary Disease (COPD): Yes - NEUROLOGICAL Hx Neurological Disorder: No - HEENT Hx HEENT Problems: No - RENAL Hx Chronic Kidney Disease: Yes Hx Dialysis: Yes Type of Dialysis Access: LAV shunt Date of Last Dialysis Treatment: 02/10/18 - ENDOCRINE/METABOLIC Hx Endocrine Disorders: Yes Hx Diabetes Mellitus Type 1: Yes - HEMATOLOGICAL/ONCOLOGICAL Hx Blood Disorders: No - INTEGUMENTARY Hx Dermatological Problems: No - MUSCULOSKELETAL/RHEUMATOLOGICAL Hx Musculoskeletal Disorders: Yes Hx Falls: No Hx Osteomyelitis: Yes (left toe amputations) - GASTROINTESTINAL Hx Gastrointestinal Disorders: Yes Hx Gastroesophageal Reflux: Yes - GENITOURINARY/GYNECOLOGICAL Hx Genitourinary Disorders: No - PSYCHIATRIC Hx Psychophysiologic Disorder: Yes Hx Substance Use: Yes - SURGICAL HISTORY Hx Surgeries: Yes Hx Amputation: Yes Other/Comment: left toes amputation - ANESTHESIA Hx Anesthesia: Yes Hx Anesthesia Reactions: No Hx Malignant Hyperthermia: No Has any member of the family had a problem w/ anesthesia?: No Meds Allergies/Adverse Reactions: Allergies Allergy/AdvReac Type Severity Reaction Status Date / Time No Known Allergies Allergy Unverified 02/12/18 15:13 - Medications Medications: Current Medications Albuterol/Ipratropium (Duoneb 3 Mg/0.5 Mg (3 Ml) Ud) 3 ml IH RQ4 [facility] Last Admin: 02/16/18 15:31 Dose: Not Given Carvedilol (Coreg) 6.25 mg PO BID [facility] Last Admin: 02/16/18 10:42 Dose: 6.25 mg Epoetin Dami (Procrit) 8,000 unit IV TTS [facility] Last Admin: 02/15/18 11:05 Dose: 8,000 unit Ferrous Sulfate (Feosol) 325 mg PO DAILY [facility] Last Admin: 02/16/18 10:42 Dose: 325 mg Hydralazine HCl (Apresoline) 50 mg PO BID [facility] Last Admin: 02/16/18 10:42 Dose: 50 mg Hydralazine HCl (Apresoline) 25 mg PO Q4 PRN PRN Reason: Other Last Admin: 02/16/18 05:51 Dose: 25 mg Gentamicin Sulfate 80 mg/ (Sodium Chloride) 102 mls @ 100 mls/hr IVPB TuThSa [facility] PRN Reason: Protocol Levetiracetam (Keppra) 500 mg PO Q12 [facility] Last Admin: 02/16/18 10:42 Dose: 500 mg Losartan Potassium (Cozaar) 100 mg PO QPM [facility] Methadone HCl (Methadone) 10 mg PO DAILY [facility] Last Admin: 02/16/18 10:44 Dose: 10 mg Oxycodone/Acetaminophen (Percocet 5/325 Mg Tab) 1 tab PO Q6H PRN PRN Reason: Pain, moderate (4-7) Stop: 02/18/18 20:18 Last Admin: 02/16/18 05:51 Dose: 1 tab Pantoprazole Sodium (Protonix Inj) 40 mg IVP Q12H [facility] Last Admin: 02/16/18 10:44 Dose: 40 mg Rosuvastatin Calcium (Crestor) 5 mg PO HS [facility] Last Admin: 02/15/18 21:15 Dose: 5 mg Sevelamer Carbonate (Renvela) 800 mg PO TIDCC [facility] Last Admin: 02/16/18 13:00 Dose: 800 mg Vitamin B Complex/Vit C/Folic Acid (Nephro-Andrew) 1 tab PO DAILY [facility] Last Admin: 02/16/18 10:43 Dose: 1 tab Physical Exam - Constitutional Appears: Well, Non-toxic, No Acute Distress - Extremities Exam Additional comments: Right LE focused exam VASC: DP/PT pulses are palpable 1/4, Cap refill time: < 3 sec to all digits, Temp gradient: warm to cool from proximal to distal, 1+ pitting edema noted to bilateral LE DERM: Cicatrix on the anterior ankle with hypopigmented skin noted on the anterior medial ankle, hyperkeratotis of the plantar heel, no open lesions, no cellulitis, no clinical suspicion of active infection NEURO: Protective sensation grossly diminished ORTHO: very limited ROM at the ankle joint, no pain on palpation of the hyperkeratotic lesion - Neurological Exam Neurological exam: Alert, Oriented x3 - Psychiatric Exam Psychiatric exam: Normal Affect, Normal Mood Results - Vital Signs Recent Vital Signs: Last Vital Signs Temp 99.1 F 02/16/18 09:15 Pulse 60 02/16/18 09:45 Resp 18 02/16/18 09:45 BP 182/68 H 02/16/18 09:45 Pulse Ox 100 02/16/18 09:45 - Labs Result Diagrams: 02/15/18 13:09 02/15/18 13:09 Labs: Laboratory Results - last 24 hr 02/15/18 02/15/18 02/16/18 16:16 21:35 06:28 POC Glucose (mg/dL) 102 148 H 88 02/16/18 11:41 POC Glucose (mg/dL) 206 H Assessment & Plan - Assessment and Plan (Free Text) Assessment: 52 year old female patient with PMHx of hypertension, diabetes, CVA, CAD, ESRD on HD, DVT,and tobacco abuse was evaluated for right plantar foot hyperkerotosis Plan: Patient seen and evaluated Discussed plan with attending Dr. Johnson Labs, vitals and charts reviewed - afebrile, WBC @ 5.1 Rx: ammonium lactate Apply to bilateral LE daily Patient is stable from podiatry standpoint Thank you for this interesting consult and allowing to take part in patient care - Date & Time Date: 02/16/18 Time: 15:48
--- NOTE | 2018-02-16 15:47 | CP.PCM.PN ---
Subjective - Date & Time of Evaluation Date of Evaluation: 02/16/18 Time of Evaluation: 15:47 Objective - Vital Signs/Intake and Output Vital Signs (last 24 hours): Temp Pulse Resp BP Pulse Ox 99.1 F 60 18 182/68 H 100 02/16/18 09:15 02/16/18 09:45 02/16/18 09:45 02/16/18 09:45 02/16/18 09:45 Intake and Output: 02/16/18 02/16/18 06:59 18:59 Intake Total 3000 500 Balance 3000 500 - Medications Medications: Current Medications Albuterol/Ipratropium (Duoneb 3 Mg/0.5 Mg (3 Ml) Ud) 3 ml IH RQ4 [facility] Last Admin: 02/16/18 15:31 Dose: Not Given Carvedilol (Coreg) 6.25 mg PO BID [facility] Last Admin: 02/16/18 10:42 Dose: 6.25 mg Epoetin Dami (Procrit) 8,000 unit IV TTS [facility] Last Admin: 02/15/18 11:05 Dose: 8,000 unit Ferrous Sulfate (Feosol) 325 mg PO DAILY [facility] Last Admin: 02/16/18 10:42 Dose: 325 mg Hydralazine HCl (Apresoline) 50 mg PO BID [facility] Last Admin: 02/16/18 10:42 Dose: 50 mg Hydralazine HCl (Apresoline) 25 mg PO Q4 PRN PRN Reason: Other Last Admin: 02/16/18 05:51 Dose: 25 mg Gentamicin Sulfate 80 mg/ (Sodium Chloride) 102 mls @ 100 mls/hr IVPB TuThSa [facility] PRN Reason: Protocol Levetiracetam (Keppra) 500 mg PO Q12 [facility] Last Admin: 02/16/18 10:42 Dose: 500 mg Losartan Potassium (Cozaar) 100 mg PO QPM [facility] Methadone HCl (Methadone) 10 mg PO DAILY [facility] Last Admin: 02/16/18 10:44 Dose: 10 mg Oxycodone/Acetaminophen (Percocet 5/325 Mg Tab) 1 tab PO Q6H PRN PRN Reason: Pain, moderate (4-7) Stop: 02/18/18 20:18 Last Admin: 02/16/18 05:51 Dose: 1 tab Pantoprazole Sodium (Protonix Inj) 40 mg IVP Q12H [facility] Last Admin: 02/16/18 10:44 Dose: 40 mg Rosuvastatin Calcium (Crestor) 5 mg PO HS [facility] Last Admin: 02/15/18 21:15 Dose: 5 mg Sevelamer Carbonate (Renvela) 800 mg PO TIDCC [facility] Last Admin: 02/16/18 13:00 Dose: 800 mg Vitamin B Complex/Vit C/Folic Acid (Nephro-Andrew) 1 tab PO DAILY [facility] Last Admin: 02/16/18 10:43 Dose: 1 tab - Labs Labs: 02/15/18 13:09 02/15/18 13:09 PT 11.0 SECONDS (9.7-12.2) 02/12/18 16:18 INR 1.0 02/12/18 16:18 APTT 41 SECONDS (21-34) H 02/12/18 16:18
--- NOTE | 2018-02-16 16:39 | CT ---
PROCEDURE: CT Abdomen and Pelvis with contrast HISTORY: abdominal pain, weight loss COMPARISON: None. TECHNIQUE: Contrast dose: 100 mL Visipaque 320 Radiation dose: Total exam DLP = 334.64 mGy-cm. This CT exam was performed using one or more of the following dose reduction techniques: Automated exposure control, adjustment of the mA and/or kV according to patient size, and/or use of iterative reconstruction technique. FINDINGS: LOWER THORAX: Small right pleural effusion. Right lower lobe compressive atelectasis. Minimal left lower lobe subsegmental atelectasis. No left pleural effusion. CABG. LIVER: Normal size, contour and attenuation. Mild nonspecific periportal edema. No mass. No biliary dilatation. GALLBLADDER AND BILE DUCTS: Gallbladder not identified. Likely prior cholecystectomy. Correlate with history. PANCREAS: Unremarkable. No gross lesion or ductal dilatation. SPLEEN: Unremarkable. ADRENALS: Unremarkable. No mass. KIDNEYS AND URETERS: Unremarkable. No hydronephrosis. No solid mass. VASCULATURE: Unremarkable. No aortic aneurysm. BOWEL: Unremarkable. No obstruction. No gross mural thickening. APPENDIX: Normal appendix. PERITONEUM: Unremarkable. No free fluid. No free air. LYMPH NODES: Unremarkable. No enlarged lymph nodes. BLADDER: Decompressed REPRODUCTIVE: Normal uterus. Small amount of fluid noted within the vagina common nonspecific. BONES: No acute fracture. OTHER FINDINGS: Mild dependent subcutaneous edema. IMPRESSION: Small right pleural effusion with right lower lobe compressive atelectasis. No bowel abnormality appreciated. Mild nonspecific periportal edema. Minor findings as above.
[2018-02-16 16:54] LABS: BASO # 0.1 K/uL (0.0-0.2); BASO % 1.4 % (0.0-2.0); EOS # 0.1 K/uL (0.0-0.7); EOS % 2.4 % (0.0-4.0); HEMOGLOBIN 8.3 g/dL (11.0-16.0); LYMPH # 1.3 K/uL (1.0-4.3); LYMPH % 30.2 % (20.0-40.0); MEAN CORPUSCULAR HEMOGLOBIN 29.9 pg (27.0-31.0); MEAN CORPUSCULAR HGB CONC 32.8 g/dL (33.0-37.0); MONO # 0.3 K/uL (0.0-0.8); NEUT # 2.6 K/uL (1.8-7.0); RBC 2.78 Mil/uL (3.80-5.20); RED CELL DISTRIBUTION WIDTH 18.6 % (11.5-14.5); WHITE BLOOD COUNT 4.4 K/uL (4.8-10.8)
[2018-02-16 17:21] LABS: ALB/GLOB RATIO 0.9 (1.0-2.1); ALBUMIN 3.1 g/dL (3.5-5.0); CALCIUM 7.7 mg/dl (8.6-10.4)
--- NOTE | 2018-02-16 17:34 | CP.PCM.PN ---
Subjective - Date & Time of Evaluation Date of Evaluation: 02/16/18 Time of Evaluation: 08:00 - Subjective Subjective: IV rx adjusted afeb nad Objective - Vital Signs/Intake and Output Vital Signs (last 24 hours): Temp Pulse Resp BP Pulse Ox 99.1 F 64 18 195/92 H 100 02/16/18 09:15 02/16/18 17:30 02/16/18 09:45 02/16/18 17:30 02/16/18 09:45 Intake and Output: 02/16/18 02/16/18 06:59 18:59 Intake Total 3000 500 Balance 3000 500 - Medications Medications: Current Medications Albuterol/Ipratropium (Duoneb 3 Mg/0.5 Mg (3 Ml) Ud) 3 ml IH RQ4 [facility] Last Admin: 02/16/18 15:31 Dose: Not Given Carvedilol (Coreg) 6.25 mg PO BID [facility] Last Admin: 02/16/18 10:42 Dose: 6.25 mg Epoetin Dami (Procrit) 8,000 unit IV TTS [facility] Last Admin: 02/15/18 11:05 Dose: 8,000 unit Ferrous Sulfate (Feosol) 325 mg PO DAILY [facility] Last Admin: 02/16/18 10:42 Dose: 325 mg Hydralazine HCl (Apresoline) 50 mg PO BID [facility] Last Admin: 02/16/18 10:42 Dose: 50 mg Hydralazine HCl (Apresoline) 25 mg PO Q4 PRN PRN Reason: Other Last Admin: 02/16/18 05:51 Dose: 25 mg Gentamicin Sulfate 80 mg/ (Sodium Chloride) 102 mls @ 100 mls/hr IVPB TuThSa [facility] PRN Reason: Protocol Lactic Acid (Lac-Hydrin 12% Lotion (225 G)) 1 gm EXT DAILY [facility] Levetiracetam (Keppra) 500 mg PO Q12 [facility] Last Admin: 02/16/18 10:42 Dose: 500 mg Losartan Potassium (Cozaar) 100 mg PO QPM [facility] Methadone HCl (Methadone) 10 mg PO DAILY [facility] Last Admin: 02/16/18 10:44 Dose: 10 mg Oxycodone/Acetaminophen (Percocet 5/325 Mg Tab) 1 tab PO Q6H PRN PRN Reason: Pain, moderate (4-7) Stop: 02/18/18 20:18 Last Admin: 02/16/18 05:51 Dose: 1 tab Pantoprazole Sodium (Protonix Inj) 40 mg IVP Q12H [facility] Last Admin: 02/16/18 10:44 Dose: 40 mg Rosuvastatin Calcium (Crestor) 5 mg PO HS [facility] Last Admin: 02/15/18 21:15 Dose: 5 mg Sevelamer Carbonate (Renvela) 800 mg PO TIDCC [facility] Last Admin: 02/16/18 13:00 Dose: 800 mg Vitamin B Complex/Vit C/Folic Acid (Nephro-Andrew) 1 tab PO DAILY [facility] Last Admin: 02/16/18 10:43 Dose: 1 tab - Labs Labs: 02/16/18 16:43 02/16/18 16:43 PT 11.0 SECONDS (9.7-12.2) 02/12/18 16:18 INR 1.0 02/12/18 16:18 APTT 41 SECONDS (21-34) H 02/12/18 16:18 - Constitutional Appears: Non-toxic, Chronically Ill - Head Exam Head Exam: NORMOCEPHALIC - Eye Exam Eye Exam: PERRL - ENT Exam ENT Exam: Mucous Membranes Dry - Neck Exam Neck Exam: absent: Lymphadenopathy - Respiratory Exam Respiratory Exam: Decreased Breath Sounds - Cardiovascular Exam Cardiovascular Exam: REGULAR RHYTHM - GI/Abdominal Exam GI & Abdominal Exam: Distended - Rectal Exam Rectal Exam: Deferred - Exam Exam: NORMAL INSPECTION Assessment and Plan (1) ESRD (end stage renal disease) Status: Acute (2) Gastrointestinal hemorrhage Status: Acute
--- NOTE | 2018-02-16 19:20 | CP.PCM.PN ---
Subjective - Date & Time of Evaluation Date of Evaluation: 02/16/18 Time of Evaluation: 10:20 - Subjective Subjective: clinically same Objective - Vital Signs/Intake and Output Vital Signs (last 24 hours): Temp Pulse Resp BP Pulse Ox 97.5 F L 64 16 196/91 H 100 02/16/18 16:40 02/16/18 19:00 02/16/18 16:40 02/16/18 19:00 02/16/18 09:45 Intake and Output: 02/16/18 02/17/18 18:59 06:59 Intake Total 500 Balance 500 - Medications Medications: Current Medications Albuterol/Ipratropium (Duoneb 3 Mg/0.5 Mg (3 Ml) Ud) 3 ml IH RQ4 [facility] Last Admin: 02/16/18 15:31 Dose: Not Given Carvedilol (Coreg) 6.25 mg PO BID [facility] Last Admin: 02/16/18 18:40 Dose: Not Given Epoetin Dami (Procrit) 8,000 unit IV TTS [facility] Last Admin: 02/15/18 11:05 Dose: 8,000 unit Ferrous Sulfate (Feosol) 325 mg PO DAILY [facility] Last Admin: 02/16/18 10:42 Dose: 325 mg Hydralazine HCl (Apresoline) 50 mg PO BID [facility] Last Admin: 02/16/18 18:40 Dose: Not Given Hydralazine HCl (Apresoline) 25 mg PO Q4 PRN PRN Reason: Other Last Admin: 02/16/18 05:51 Dose: 25 mg Gentamicin Sulfate 80 mg/ (Sodium Chloride) 102 mls @ 100 mls/hr IVPB TuThSa [facility] PRN Reason: Protocol Lactic Acid (Lac-Hydrin 12% Lotion (225 G)) 1 gm EXT DAILY [facility] Levetiracetam (Keppra) 500 mg PO Q12 [facility] Last Admin: 02/16/18 10:42 Dose: 500 mg Losartan Potassium (Cozaar) 100 mg PO QPM [facility] Last Admin: 02/16/18 18:41 Dose: Not Given Methadone HCl (Methadone) 10 mg PO DAILY [facility] Last Admin: 02/16/18 10:44 Dose: 10 mg Oxycodone/Acetaminophen (Percocet 5/325 Mg Tab) 1 tab PO Q6H PRN PRN Reason: Pain, moderate (4-7) Stop: 02/18/18 20:18 Last Admin: 02/16/18 05:51 Dose: 1 tab Pantoprazole Sodium (Protonix Inj) 40 mg IVP Q12H [facility] Last Admin: 02/16/18 10:44 Dose: 40 mg Rosuvastatin Calcium (Crestor) 5 mg PO HS [facility] Last Admin: 02/15/18 21:15 Dose: 5 mg Sevelamer Carbonate (Renvela) 800 mg PO TIDCC [facility] Last Admin: 02/16/18 18:40 Dose: Not Given Vitamin B Complex/Vit C/Folic Acid (Nephro-Andrew) 1 tab PO DAILY [facility] Last Admin: 02/16/18 10:43 Dose: 1 tab - Labs Labs: 02/16/18 16:43 02/16/18 16:43 PT 11.0 SECONDS (9.7-12.2) 02/12/18 16:18 INR 1.0 02/12/18 16:18 APTT 41 SECONDS (21-34) H 02/12/18 16:18 - Constitutional Appears: Well - Head Exam Head Exam: ATRAUMATIC, NORMAL INSPECTION, NORMOCEPHALIC - Eye Exam Eye Exam: EOMI, Normal appearance, PERRL Pupil Exam: NORMAL ACCOMODATION, PERRL - ENT Exam ENT Exam: Mucous Membranes Moist, Normal Exam - Neck Exam Neck Exam: Full ROM, Normal Inspection. absent: Lymphadenopathy - Respiratory Exam Respiratory Exam: Decreased Breath Sounds - Cardiovascular Exam Cardiovascular Exam: REGULAR RHYTHM, +S2 - GI/Abdominal Exam GI & Abdominal Exam: Soft, Diminished Bowel Sounds - Rectal Exam Rectal Exam: Deferred
[2018-02-17] MEDS: Albuterol-Ipratrop 3 mg / 0.5 (3 ml) UD IH SCH ×5 (00:31→19:54)
[2018-02-17] MEDS: Oxycodone/Acetaminophen 5/325 mg Tab PO PRN ×2 (05:21→21:39)
[2018-02-17 10:26] LABS: BASO % 0.6 % (0.0-2.0); EOS # 0.1 K/uL (0.0-0.7); EOS % 1.2 % (0.0-4.0); HEMOGLOBIN 9.1 g/dL (11.0-16.0); LYMPH # 1.1 K/uL (1.0-4.3); LYMPH % 17.7 % (20.0-40.0); MEAN CELL VOLUME 91.1 fL (81.0-99.0); MEAN CORPUSCULAR HEMOGLOBIN 29.6 pg (27.0-31.0); MEAN CORPUSCULAR HGB CONC 32.4 g/dL (33.0-37.0); MEAN PLATELET VOLUME 7.5 fL (7.2-11.7); MONO # 0.4 K/uL (0.0-0.8); NEUT # 4.6 K/uL (1.8-7.0); NEUT % 73.5 % (50.0-75.0); RBC 3.08 Mil/uL (3.80-5.20); RED CELL DISTRIBUTION WIDTH 18.2 % (11.5-14.5); WHITE BLOOD COUNT 6.2 K/uL (4.8-10.8)
--- NOTE | 2018-02-17 10:33 | CP.PCM.PN ---
Subjective - Date & Time of Evaluation Date of Evaluation: 02/17/18 Time of Evaluation: 10:30 - Subjective Subjective: ecocardiogram reviewed. left ventricular function is normal no significant valvular dysfunction. medical therapy is recommended Objective - Vital Signs/Intake and Output Vital Signs (last 24 hours): Temp Pulse Resp BP Pulse Ox 97.7 F 74 20 214/98 H 100 02/17/18 10:05 02/17/18 10:05 02/17/18 10:05 02/17/18 10:05 02/17/18 10:05 - Medications Medications: Current Medications Albuterol/Ipratropium (Duoneb 3 Mg/0.5 Mg (3 Ml) Ud) 3 ml IH RQ4 [facility] Last Admin: 02/17/18 03:41 Dose: Not Given Carvedilol (Coreg) 6.25 mg PO BID [facility] Last Admin: 02/17/18 10:24 Dose: Not Given Epoetin Dami (Procrit) 8,000 unit IV TTS [facility] Last Admin: 02/15/18 11:05 Dose: 8,000 unit Ferrous Sulfate (Feosol) 325 mg PO DAILY [facility] Last Admin: 02/17/18 09:41 Dose: 325 mg Hydralazine HCl (Apresoline) 50 mg PO BID [facility] Last Admin: 02/17/18 10:24 Dose: Not Given Hydralazine HCl (Apresoline) 25 mg PO Q4 PRN PRN Reason: Other Last Admin: 02/16/18 05:51 Dose: 25 mg Gentamicin Sulfate 80 mg/ (Sodium Chloride) 102 mls @ 100 mls/hr IVPB TuThSa [facility] PRN Reason: Protocol Lactic Acid (Lac-Hydrin 12% Lotion (225 G)) 1 gm EXT DAILY [facility] Levetiracetam (Keppra) 500 mg PO Q12 [facility] Last Admin: 02/17/18 09:41 Dose: 500 mg Losartan Potassium (Cozaar) 100 mg PO QPM [facility] Last Admin: 02/16/18 20:11 Dose: 100 mg Methadone HCl (Methadone) 20 mg PO DAILY [facility] Stop: 02/19/18 09:59 Last Admin: 02/17/18 09:41 Dose: 20 mg Methadone HCl (Methadone) 30 mg PO DAILY [facility] Stop: 02/21/18 09:59 Methadone HCl (Methadose) 40 mg PO DAILY [facility] Stop: 02/23/18 09:59 Methadone HCl (Methadone) 50 mg PO DAILY [facility] Oxycodone/Acetaminophen (Percocet 5/325 Mg Tab) 1 tab PO Q6H PRN PRN Reason: Pain, moderate (4-7) Stop: 02/18/18 20:18 Last Admin: 02/17/18 05:21 Dose: 1 tab Pantoprazole Sodium (Protonix Inj) 40 mg IVP Q12H [facility] Last Admin: 02/17/18 08:45 Dose: 40 mg Rosuvastatin Calcium (Crestor) 5 mg PO HS [facility] Last Admin: 02/16/18 21:11 Dose: 5 mg Sevelamer Carbonate (Renvela) 800 mg PO TIDCC [facility] Last Admin: 02/17/18 08:45 Dose: 800 mg Vitamin B Complex/Vit C/Folic Acid (Nephro-Andrew) 1 tab PO DAILY [facility] Last Admin: 02/16/18 10:43 Dose: 1 tab - Labs Labs: 02/16/18 16:43 02/16/18 16:43 PT 11.0 SECONDS (9.7-12.2) 02/12/18 16:18 INR 1.0 02/12/18 16:18 APTT 41 SECONDS (21-34) H 02/12/18 16:18 Assessment and Plan (1) Dyspnea Status: Acute (2) CAD (coronary artery disease) Status: Acute (3) HTN (hypertension) Status: Acute
[2018-02-17 10:46] LABS: ALB/GLOB RATIO 0.9 (1.0-2.1); ALBUMIN 3.4 g/dL (3.5-5.0); CALCIUM 8.4 mg/dl (8.6-10.4)
[2018-02-17] MEDS: Epoetin Alfa Dialysis 2000 U/ML Inj IV SCH (11:37)
[2018-02-17] MEDS: Multivitamin Vitamin B Complex (Nephro-Vite) Tab PO SCH (14:20)
[2018-02-17] MEDS: Ammonium Lactate 12% Lotion (225 g) EXT SCH (14:21)
--- NOTE | 2018-02-17 14:46 | CP.PCM.PN ---
<Gregory France - Last Filed: 02/17/18 14:47> Subjective - Date & Time of Evaluation Date of Evaluation: 02/17/18 Time of Evaluation: 11:40 - Subjective Subjective: PGY4 GI Follow-up Pt seen and examined bedside denies any abd pain tolerated dialysis +BM good appetite notes nose bleed overnight Denies any GI bleed ROS: 12 point ROS conducted, neg other than above Objective - Vital Signs/Intake and Output Vital Signs (last 24 hours): Temp Pulse Resp BP Pulse Ox 98.1 F 66 20 189/63 H 100 02/17/18 14:19 02/17/18 14:19 02/17/18 14:19 02/17/18 14:19 02/17/18 14:19 - Medications Medications: Current Medications Albuterol/Ipratropium (Duoneb 3 Mg/0.5 Mg (3 Ml) Ud) 3 ml IH RQ4 [facility] Last Admin: 02/17/18 03:41 Dose: Not Given Carvedilol (Coreg) 6.25 mg PO BID [facility] Last Admin: 02/17/18 11:19 Dose: 6.25 mg Epoetin Dami (Procrit) 8,000 u IV TTS [facility] Last Admin: 02/17/18 11:37 Dose: 8,000 u Ferrous Sulfate (Feosol) 325 mg PO DAILY [facility] Last Admin: 02/17/18 09:41 Dose: 325 mg Hydralazine HCl (Apresoline) 50 mg PO BID [facility] Last Admin: 02/17/18 11:19 Dose: 50 mg Hydralazine HCl (Apresoline) 25 mg PO Q4 PRN PRN Reason: Other Last Admin: 02/17/18 14:20 Dose: 25 mg Gentamicin Sulfate 80 mg/ (Sodium Chloride) 102 mls @ 100 mls/hr IVPB TuThSa [facility] PRN Reason: Protocol Last Admin: 02/17/18 14:21 Dose: 100 mls/hr Lactic Acid (Lac-Hydrin 12% Lotion (225 G)) 1 gm EXT DAILY [facility] Last Admin: 02/17/18 14:21 Dose: 1 applic Levetiracetam (Keppra) 500 mg PO Q12 [facility] Last Admin: 02/17/18 09:41 Dose: 500 mg Losartan Potassium (Cozaar) 100 mg PO QPM [facility] Last Admin: 02/16/18 20:11 Dose: 100 mg Methadone HCl (Methadone) 20 mg PO DAILY [facility] Stop: 02/19/18 09:59 Last Admin: 02/17/18 09:41 Dose: 20 mg Methadone HCl (Methadone) 30 mg PO DAILY [facility] Stop: 02/21/18 09:59 Methadone HCl (Methadose) 40 mg PO DAILY [facility] Stop: 02/23/18 09:59 Methadone HCl (Methadone) 50 mg PO DAILY [facility] Oxycodone/Acetaminophen (Percocet 5/325 Mg Tab) 1 tab PO Q6H PRN PRN Reason: Pain, moderate (4-7) Stop: 02/18/18 20:18 Last Admin: 02/17/18 05:21 Dose: 1 tab Pantoprazole Sodium (Protonix Inj) 40 mg IVP Q12H [facility] Last Admin: 02/17/18 08:45 Dose: 40 mg Rosuvastatin Calcium (Crestor) 5 mg PO HS [facility] Last Admin: 02/16/18 21:11 Dose: 5 mg Sevelamer Carbonate (Renvela) 800 mg PO TIDCC [facility] Last Admin: 02/17/18 14:31 Dose: 800 mg Vitamin B Complex/Vit C/Folic Acid (Nephro-Andrew) 1 tab PO DAILY [facility] Last Admin: 02/17/18 14:20 Dose: 1 tab - Labs Labs: 02/17/18 10:22 02/17/18 10:22 PT 11.0 SECONDS (9.7-12.2) 02/12/18 16:18 INR 1.0 02/12/18 16:18 APTT 41 SECONDS (21-34) H 02/12/18 16:18 - Constitutional Appears: Well, No Acute Distress - Head Exam Head Exam: ATRAUMATIC, NORMOCEPHALIC - Eye Exam Eye Exam: Normal appearance - ENT Exam ENT Exam: Mucous Membranes Moist, Normal Exam - Neck Exam Neck Exam: Normal Inspection - Respiratory Exam Respiratory Exam: Clear to Ausculation Bilateral, NORMAL BREATHING PATTERN. absent: Rales, Rhonchi, Wheezes, Respiratory Distress - Cardiovascular Exam Cardiovascular Exam: REGULAR RHYTHM, +S1, +S2 - GI/Abdominal Exam GI & Abdominal Exam: Soft, Normal Bowel Sounds. absent: Distended, Firm, Guarding, Rigid, Tenderness, Organomegaly - Extremities Exam Extremities Exam: absent: Joint Swelling, Pedal Edema - Neurological Exam Neurological Exam: Alert, Awake, Oriented x3. absent: Altered - Psychiatric Exam Psychiatric exam: Normal Affect, Normal Mood - Skin Skin Exam: Dry, Intact, Normal Color, Warm Assessment and Plan - Assessment and Plan (Free Text) Assessment: Allegra Koehler 52 year old female with a past medical history of hypertension , diabetes, CVA, CAD, ESRD on HD, DVT, and tobacco abuse who was admitted for evaluation and treatment of a potential GI bleed. s/p EGD: gastritis, duodenitis ; s/[p colonoscopy aborted due to solid stool Abdominal Pain resolved Hemoptysis? resolved Anemia, s/p 1 unit PRBC epitaxis Hx of CVA Hx of CAD HX of ESRD on HD Plan: -Maintain hgb > 8 -repeat cbc today -Protonix 40mg daily -maintain IV access -repeat colonoscopy as oupt -hgb stable -recommend DDAVP for recurrent nose bleeds -will sign off D/W Dr. Dsouza <Helen Dsouza - Last Filed: 02/17/18 19:39> Objective - Vital Signs/Intake and Output Vital Signs (last 24 hours): Temp Pulse Resp BP Pulse Ox 98.8 F 67 20 184/83 H 97 02/17/18 15:45 02/17/18 16:00 02/17/18 15:45 02/17/18 15:45 02/17/18 15:45 Intake and Output: 02/17/18 02/18/18 18:59 06:59 Intake Total 500 Balance 500 - Medications Medications: Current Medications Albuterol/Ipratropium (Duoneb 3 Mg/0.5 Mg (3 Ml) Ud) 3 ml IH RQ4 [facility] Last Admin: 02/17/18 16:48 Dose: 3 ml Carvedilol (Coreg) 6.25 mg PO BID [facility] Last Admin: 02/17/18 17:20 Dose: 6.25 mg Epoetin Dami (Procrit) 8,000 u IV TTS [facility] Last Admin: 02/17/18 11:37 Dose: 8,000 u Ferrous Sulfate (Feosol) 325 mg PO DAILY [facility] Last Admin: 02/17/18 09:41 Dose: 325 mg Hydralazine HCl (Apresoline) 50 mg PO BID [facility] Last Admin: 02/17/18 17:20 Dose: 50 mg Hydralazine HCl (Apresoline) 25 mg PO Q4 PRN PRN Reason: Other Last Admin: 02/17/18 14:20 Dose: 25 mg Gentamicin Sulfate 80 mg/ (Sodium Chloride) 102 mls @ 100 mls/hr IVPB TuThSa [facility] PRN Reason: Protocol Last Admin: 02/17/18 14:21 Dose: 100 mls/hr Lactic Acid (Lac-Hydrin 12% Lotion (225 G)) 1 gm EXT DAILY [facility] Last Admin: 02/17/18 14:21 Dose: 1 applic Levetiracetam (Keppra) 500 mg PO Q12 [facility] Last Admin: 02/17/18 09:41 Dose: 500 mg Losartan Potassium (Cozaar) 100 mg PO QPM [facility] Last Admin: 02/17/18 17:21 Dose: 100 mg Methadone HCl (Methadone) 20 mg PO DAILY [facility] Stop: 02/19/18 09:59 Last Admin: 02/17/18 09:41 Dose: 20 mg Methadone HCl (Methadone) 30 mg PO DAILY [facility] Stop: 02/21/18 09:59 Methadone HCl (Methadose) 40 mg PO DAILY [facility] Stop: 02/23/18 09:59 Methadone HCl (Methadone) 50 mg PO DAILY [facility] Oxycodone/Acetaminophen (Percocet 5/325 Mg Tab) 1 tab PO Q6H PRN PRN Reason: Pain, moderate (4-7) Stop: 02/18/18 20:18 Last Admin: 02/17/18 05:21 Dose: 1 tab Pantoprazole Sodium (Protonix Inj) 40 mg IVP Q12H [facility] Last Admin: 02/17/18 19:21 Dose: 40 mg Polyethylene Glycol (Miralax) 17 gm PO DAILY [facility] Rosuvastatin Calcium (Crestor) 5 mg PO HS [facility] Last Admin: 02/16/18 21:11 Dose: 5 mg Sevelamer Carbonate (Renvela) 800 mg PO TIDCC [facility] Last Admin: 02/17/18 17:20 Dose: 800 mg Vitamin B Complex/Vit C/Folic Acid (Nephro-Andrew) 1 tab PO DAILY [facility] Last Admin: 02/17/18 14:20 Dose: 1 tab - Labs Labs: 02/17/18 10:22 02/17/18 10:22 PT 11.0 SECONDS (9.7-12.2) 02/12/18 16:18 INR 1.0 02/12/18 16:18 APTT 41 SECONDS (21-34) H 02/12/18 16:18 Attending/Attestation - Attestation I have personally seen and examined this patient.: Yes I have fully participated in the care of the patient.: Yes I have reviewed all pertinent clinical information, including history, physical exam and plan: Yes Notes (Text): 02/17/18 19:37 I have seen and examined patient with GI fellow. 52 yr old F with ESRD on HD, history of DVT, DM / HTN, CAD, Anemia, chronic disease - s/p EGD yesterday showing gastritis and duodenitis and colonoscopy with solid stool. Today she feels comfortable and tolerating diet. No further recommendations. Small frequent meals and supportive care. Will sign off. Thank you for letting us participate in the care of your patient
--- NOTE | 2018-02-17 15:10 | CP.PCM.PN ---
Subjective - Date & Time of Evaluation Date of Evaluation: 02/17/18 Time of Evaluation: 10:00 - Subjective Subjective: clinically same Objective - Vital Signs/Intake and Output Vital Signs (last 24 hours): Temp Pulse Resp BP Pulse Ox 98.1 F 66 20 189/63 H 100 02/17/18 14:19 02/17/18 14:19 02/17/18 14:19 02/17/18 14:19 02/17/18 14:19 Intake and Output: 02/17/18 02/17/18 06:59 18:59 Intake Total 500 Balance 500 - Medications Medications: Current Medications Albuterol/Ipratropium (Duoneb 3 Mg/0.5 Mg (3 Ml) Ud) 3 ml IH RQ4 [facility] Last Admin: 02/17/18 03:41 Dose: Not Given Carvedilol (Coreg) 6.25 mg PO BID [facility] Last Admin: 02/17/18 11:19 Dose: 6.25 mg Epoetin Dami (Procrit) 8,000 u IV TTS [facility] Last Admin: 02/17/18 11:37 Dose: 8,000 u Ferrous Sulfate (Feosol) 325 mg PO DAILY [facility] Last Admin: 02/17/18 09:41 Dose: 325 mg Hydralazine HCl (Apresoline) 50 mg PO BID [facility] Last Admin: 02/17/18 11:19 Dose: 50 mg Hydralazine HCl (Apresoline) 25 mg PO Q4 PRN PRN Reason: Other Last Admin: 02/17/18 14:20 Dose: 25 mg Gentamicin Sulfate 80 mg/ (Sodium Chloride) 102 mls @ 100 mls/hr IVPB TuThSa [facility] PRN Reason: Protocol Last Admin: 02/17/18 14:21 Dose: 100 mls/hr Lactic Acid (Lac-Hydrin 12% Lotion (225 G)) 1 gm EXT DAILY [facility] Last Admin: 02/17/18 14:21 Dose: 1 applic Levetiracetam (Keppra) 500 mg PO Q12 [facility] Last Admin: 02/17/18 09:41 Dose: 500 mg Losartan Potassium (Cozaar) 100 mg PO QPM [facility] Last Admin: 02/16/18 20:11 Dose: 100 mg Methadone HCl (Methadone) 20 mg PO DAILY [facility] Stop: 02/19/18 09:59 Last Admin: 02/17/18 09:41 Dose: 20 mg Methadone HCl (Methadone) 30 mg PO DAILY [facility] Stop: 02/21/18 09:59 Methadone HCl (Methadose) 40 mg PO DAILY [facility] Stop: 02/23/18 09:59 Methadone HCl (Methadone) 50 mg PO DAILY [facility] Oxycodone/Acetaminophen (Percocet 5/325 Mg Tab) 1 tab PO Q6H PRN PRN Reason: Pain, moderate (4-7) Stop: 02/18/18 20:18 Last Admin: 02/17/18 05:21 Dose: 1 tab Pantoprazole Sodium (Protonix Inj) 40 mg IVP Q12H [facility] Last Admin: 02/17/18 08:45 Dose: 40 mg Polyethylene Glycol (Miralax) 17 gm PO DAILY [facility] Rosuvastatin Calcium (Crestor) 5 mg PO HS [facility] Last Admin: 02/16/18 21:11 Dose: 5 mg Sevelamer Carbonate (Renvela) 800 mg PO TIDCC [facility] Last Admin: 02/17/18 14:31 Dose: 800 mg Vitamin B Complex/Vit C/Folic Acid (Nephro-Andrew) 1 tab PO DAILY [facility] Last Admin: 02/17/18 14:20 Dose: 1 tab - Labs Labs: 02/17/18 10:22 02/17/18 10:22 PT 11.0 SECONDS (9.7-12.2) 02/12/18 16:18 INR 1.0 02/12/18 16:18 APTT 41 SECONDS (21-34) H 02/12/18 16:18 - Constitutional Appears: Well - Head Exam Head Exam: ATRAUMATIC, NORMAL INSPECTION, NORMOCEPHALIC - Eye Exam Eye Exam: EOMI, Normal appearance, PERRL Pupil Exam: NORMAL ACCOMODATION, PERRL - ENT Exam ENT Exam: Mucous Membranes Moist, Normal Exam - Neck Exam Neck Exam: Full ROM, Normal Inspection. absent: Lymphadenopathy - Respiratory Exam Respiratory Exam: Decreased Breath Sounds - Cardiovascular Exam Cardiovascular Exam: REGULAR RHYTHM, +S1, +S2 - GI/Abdominal Exam GI & Abdominal Exam: Soft, Diminished Bowel Sounds - Rectal Exam Rectal Exam: Deferred
--- NOTE | 2018-02-17 16:28 | CARD ---
APPROVED REPORT EXAM: Two-dimensional and M-mode echocardiogram with Doppler and color Doppler. Other Information Quality : GoodRhythm : INDICATION Dyspnea Cardiac Disease: CAD RISK FACTORS Hypertension 2D DIMENSIONS IVSd1.1 (0.7-1.1cm)LVDd4.7 (3.9-5.9cm) PWd1.3 (0.7-1.1cm)LVDs3.1 (2.5-4.0cm) FS (%) 34.3 %LVEF (%)55.0 (>50%) M-Mode DIMENSIONS Left Atrium (MM)4.29 (2.5-4.0cm)Aortic Root2.95 (2.2-3.7cm) Aortic Cusp Exc.2.24 (1.5-2.0cm) Mitral Valve MV E [id number]/sMV A Ktmcqjbb72.4cm/sE/A ratio3.7 TDI E/Lateral E'0.0E/Medial E'0.0 Tricuspid Valve TR Peak [id number]/sTR Peak [id number] LEFT VENTRICLE The left ventricle is normal size. There is normal left ventricular wall thickness. The left ventricular function is normal. The left ventricular ejection fraction is within the normal range. There is normal LV segmental wall motion. The left ventricular diastolic function is normal. RIGHT VENTRICLE The right ventricle is normal size. ATRIA The left atrium is mildly dilated. The right atrium size is normal. AORTIC VALVE There is trace to mild aortic regurgitation. MITRAL VALVE Mitral regurgitation is mild. TRICUSPID VALVE There is mild to moderate tricuspid regurgitation. <Conclusion> Normal LV systolic function. Mildly dilated LA. Trace to mild AR. Trace to mild MR. Mild to moderate TR.
[2018-02-18] MEDS: Albuterol-Ipratrop 3 mg / 0.5 (3 ml) UD IH SCH ×7 (00:15→19:19)
[2018-02-18] MEDS: Multivitamin Vitamin B Complex (Nephro-Vite) Tab PO SCH (09:56)
[2018-02-18] MEDS: POLYETHYLENE GLYCOL 3350 17 GM/Dose PACKET PO SCH (09:57)
[2018-02-18] MEDS: Ammonium Lactate 12% Lotion (225 g) EXT SCH (09:58)
--- NOTE | 2018-02-18 16:03 | CP.PCM.PN ---
Subjective - Date & Time of Evaluation Date of Evaluation: 02/18/18 Time of Evaluation: 10:00 - Subjective Subjective: clinically same Objective - Vital Signs/Intake and Output Vital Signs (last 24 hours): Temp Pulse Resp BP Pulse Ox 98.5 F 66 20 182/79 H 100 02/18/18 07:00 02/18/18 12:00 02/18/18 07:00 02/18/18 09:55 02/18/18 07:00 Intake and Output: 02/18/18 02/18/18 06:59 18:59 Intake Total 500 400 Balance 500 400 - Medications Medications: Current Medications Albuterol/Ipratropium (Duoneb 3 Mg/0.5 Mg (3 Ml) Ud) 3 ml IH RQ4 [facility] Last Admin: 02/18/18 13:18 Dose: Not Given Carvedilol (Coreg) 6.25 mg PO BID [facility] Last Admin: 02/18/18 09:56 Dose: 6.25 mg Epoetin Dami (Procrit) 8,000 u IV TTS [facility] Last Admin: 02/17/18 11:37 Dose: 8,000 u Ferrous Sulfate (Feosol) 325 mg PO DAILY [facility] Last Admin: 02/18/18 09:56 Dose: 325 mg Hydralazine HCl (Apresoline) 50 mg PO BID [facility] Last Admin: 02/18/18 09:56 Dose: 50 mg Hydralazine HCl (Apresoline) 25 mg PO Q4 PRN PRN Reason: Other Last Admin: 02/17/18 14:20 Dose: 25 mg Gentamicin Sulfate 80 mg/ (Sodium Chloride) 102 mls @ 100 mls/hr IVPB TuThSa [facility] PRN Reason: Protocol Last Admin: 02/17/18 14:21 Dose: 100 mls/hr Lactic Acid (Lac-Hydrin 12% Lotion (225 G)) 1 gm EXT DAILY [facility] Last Admin: 02/18/18 09:58 Dose: 1 applic Levetiracetam (Keppra) 500 mg PO Q12 [facility] Last Admin: 02/18/18 09:56 Dose: 500 mg Losartan Potassium (Cozaar) 100 mg PO QPM [facility] Last Admin: 02/17/18 17:21 Dose: 100 mg Methadone HCl (Methadone) 20 mg PO DAILY [facility] Stop: 02/19/18 09:59 Last Admin: 02/18/18 09:56 Dose: 20 mg Methadone HCl (Methadone) 30 mg PO DAILY [facility] Stop: 02/21/18 09:59 Methadone HCl (Methadose) 40 mg PO DAILY [facility] Stop: 02/23/18 09:59 Methadone HCl (Methadone) 50 mg PO DAILY [facility] Oxycodone/Acetaminophen (Percocet 5/325 Mg Tab) 1 tab PO Q6H PRN PRN Reason: Pain, moderate (4-7) Stop: 02/18/18 20:18 Last Admin: 02/17/18 21:39 Dose: 1 tab Pantoprazole Sodium (Protonix Inj) 40 mg IVP Q12H [facility] Last Admin: 02/18/18 08:35 Dose: 40 mg Polyethylene Glycol (Miralax) 17 gm PO DAILY [facility] Last Admin: 02/18/18 09:57 Dose: Not Given Rosuvastatin Calcium (Crestor) 5 mg PO HS [facility] Last Admin: 02/17/18 21:40 Dose: 5 mg Sevelamer Carbonate (Renvela) 800 mg PO TIDCC [facility] Last Admin: 02/18/18 12:39 Dose: 800 mg Vitamin B Complex/Vit C/Folic Acid (Nephro-Andrew) 1 tab PO DAILY [facility] Last Admin: 02/18/18 09:56 Dose: 1 tab - Labs Labs: 02/17/18 10:22 02/17/18 10:22 PT 11.0 SECONDS (9.7-12.2) 02/12/18 16:18 INR 1.0 02/12/18 16:18 APTT 41 SECONDS (21-34) H 02/12/18 16:18 - Constitutional Appears: Well - Head Exam Head Exam: ATRAUMATIC, NORMAL INSPECTION, NORMOCEPHALIC - Eye Exam Eye Exam: EOMI, Normal appearance, PERRL Pupil Exam: NORMAL ACCOMODATION, PERRL - ENT Exam ENT Exam: Mucous Membranes Moist, Normal Exam - Neck Exam Neck Exam: Full ROM, Normal Inspection. absent: Lymphadenopathy - Respiratory Exam Respiratory Exam: Decreased Breath Sounds - Cardiovascular Exam Cardiovascular Exam: REGULAR RHYTHM, +S1, +S2 - GI/Abdominal Exam GI & Abdominal Exam: Soft, Diminished Bowel Sounds - Rectal Exam Rectal Exam: Deferred
--- NOTE | 2018-02-18 17:00 | CP.PCM.PN ---
Subjective - Date & Time of Evaluation Date of Evaluation: 02/18/18 Time of Evaluation: 09:00 - Subjective Subjective: possible KPC Klebs in sputum on IV Genta recc pulm eval and follow up follow cxr Objective - Vital Signs/Intake and Output Vital Signs (last 24 hours): Temp Pulse Resp BP Pulse Ox 97.9 F 65 20 180/75 H 96 02/18/18 16:03 02/18/18 16:55 02/18/18 16:03 02/18/18 16:03 02/18/18 16:03 Intake and Output: 02/18/18 02/18/18 06:59 18:59 Intake Total 500 420 Balance 500 420 - Medications Medications: Current Medications Albuterol/Ipratropium (Duoneb 3 Mg/0.5 Mg (3 Ml) Ud) 3 ml IH RQ4 [facility] Last Admin: 02/18/18 16:11 Dose: Not Given Carvedilol (Coreg) 6.25 mg PO BID [facility] Last Admin: 02/18/18 09:56 Dose: 6.25 mg Epoetin Dami (Procrit) 8,000 u IV TTS [facility] Last Admin: 02/17/18 11:37 Dose: 8,000 u Ferrous Sulfate (Feosol) 325 mg PO DAILY [facility] Last Admin: 02/18/18 09:56 Dose: 325 mg Hydralazine HCl (Apresoline) 50 mg PO BID [facility] Last Admin: 02/18/18 09:56 Dose: 50 mg Hydralazine HCl (Apresoline) 25 mg PO Q4 PRN PRN Reason: Other Last Admin: 02/17/18 14:20 Dose: 25 mg Gentamicin Sulfate 80 mg/ (Sodium Chloride) 102 mls @ 100 mls/hr IVPB TuThSa [facility] PRN Reason: Protocol Last Admin: 02/17/18 14:21 Dose: 100 mls/hr Lactic Acid (Lac-Hydrin 12% Lotion (225 G)) 1 gm EXT DAILY [facility] Last Admin: 02/18/18 09:58 Dose: 1 applic Levetiracetam (Keppra) 500 mg PO Q12 [facility] Last Admin: 02/18/18 09:56 Dose: 500 mg Losartan Potassium (Cozaar) 100 mg PO QPM [facility] Last Admin: 02/17/18 17:21 Dose: 100 mg Methadone HCl (Methadone) 20 mg PO DAILY [facility] Stop: 02/19/18 09:59 Last Admin: 02/18/18 09:56 Dose: 20 mg Methadone HCl (Methadone) 30 mg PO DAILY [facility] Stop: 02/21/18 09:59 Methadone HCl (Methadose) 40 mg PO DAILY [facility] Stop: 02/23/18 09:59 Methadone HCl (Methadone) 50 mg PO DAILY [facility] Oxycodone/Acetaminophen (Percocet 5/325 Mg Tab) 1 tab PO Q6H PRN PRN Reason: Pain, moderate (4-7) Stop: 02/18/18 20:18 Last Admin: 02/17/18 21:39 Dose: 1 tab Pantoprazole Sodium (Protonix Inj) 40 mg IVP Q12H [facility] Last Admin: 02/18/18 08:35 Dose: 40 mg Polyethylene Glycol (Miralax) 17 gm PO DAILY [facility] Last Admin: 02/18/18 09:57 Dose: Not Given Rosuvastatin Calcium (Crestor) 5 mg PO HS [facility] Last Admin: 02/17/18 21:40 Dose: 5 mg Sevelamer Carbonate (Renvela) 800 mg PO TIDCC [facility] Last Admin: 02/18/18 12:39 Dose: 800 mg Vitamin B Complex/Vit C/Folic Acid (Nephro-Andrew) 1 tab PO DAILY [facility] Last Admin: 02/18/18 09:56 Dose: 1 tab - Labs Labs: 02/17/18 10:22 02/17/18 10:22 PT 11.0 SECONDS (9.7-12.2) 02/12/18 16:18 INR 1.0 02/12/18 16:18 APTT 41 SECONDS (21-34) H 02/12/18 16:18 - Constitutional Appears: Non-toxic, Chronically Ill - Head Exam Head Exam: NORMOCEPHALIC - Eye Exam Eye Exam: PERRL - ENT Exam ENT Exam: Mucous Membranes Dry - Neck Exam Neck Exam: absent: Lymphadenopathy - Respiratory Exam Respiratory Exam: Decreased Breath Sounds - Cardiovascular Exam Cardiovascular Exam: REGULAR RHYTHM - GI/Abdominal Exam GI & Abdominal Exam: Distended Assessment and Plan (1) ESRD (end stage renal disease) Status: Acute (2) Gastrointestinal hemorrhage Status: Acute
[2018-02-19] MEDS: Albuterol-Ipratrop 3 mg / 0.5 (3 ml) UD IH SCH ×5 (01:53→16:27)
[2018-02-19] MEDS: Multivitamin Vitamin B Complex (Nephro-Vite) Tab PO SCH (09:59)
--- NOTE | 2018-02-19 10:06 | CP.PCM.PN ---
Addendum entered and electronically signed by Lynn Wright DO 02/19/18 17:06: Per ID, continue gentamycin for total of 10 days to be given during HD. Original Note: <Lynn Wright - Last Filed: 02/19/18 13:08> Subjective - Date & Time of Evaluation Date of Evaluation: 02/19/18 Time of Evaluation: 10:04 - Subjective Subjective: PGY2 progress note for Dr. France Pt seen and examined at bedside. No acute events overnight. Pt is resting comfortably eating her breakfast. Denies having any CP, SOB, abd pain, N/V/D/C , F/C, hematochezia. 12 point ROS negative except for above mentioned. Objective - Vital Signs/Intake and Output Vital Signs (last 24 hours): Temp Pulse Resp BP Pulse Ox 97.9 F 64 18 127/80 98 02/19/18 09:03 02/19/18 09:03 02/19/18 09:03 02/19/18 09:03 02/19/18 09:03 Intake and Output: 02/19/18 02/19/18 06:59 18:59 Intake Total 600 Balance 600 - Medications Medications: Current Medications Albuterol/Ipratropium (Duoneb 3 Mg/0.5 Mg (3 Ml) Ud) 3 ml IH RQ4 [facility] Last Admin: 02/19/18 07:11 Dose: Not Given Carvedilol (Coreg) 6.25 mg PO BID [facility] Last Admin: 02/18/18 17:50 Dose: 6.25 mg Epoetin Dami (Procrit) 8,000 u IV TTS [facility] Last Admin: 02/17/18 11:37 Dose: 8,000 u Ferrous Sulfate (Feosol) 325 mg PO DAILY [facility] Last Admin: 02/18/18 09:56 Dose: 325 mg Hydralazine HCl (Apresoline) 50 mg PO BID [facility] Last Admin: 02/18/18 17:50 Dose: 50 mg Hydralazine HCl (Apresoline) 25 mg PO Q4 PRN PRN Reason: Other Last Admin: 02/17/18 14:20 Dose: 25 mg Gentamicin Sulfate 80 mg/ (Sodium Chloride) 102 mls @ 100 mls/hr IVPB TuThSa [facility] PRN Reason: Protocol Last Admin: 02/17/18 14:21 Dose: 100 mls/hr Lactic Acid (Lac-Hydrin 12% Lotion (225 G)) 1 gm EXT DAILY [facility] Last Admin: 02/18/18 09:58 Dose: 1 applic Levetiracetam (Keppra) 500 mg PO Q12 [facility] Last Admin: 02/18/18 21:25 Dose: 500 mg Losartan Potassium (Cozaar) 100 mg PO QPM [facility] Last Admin: 02/18/18 17:50 Dose: 100 mg Methadone HCl (Methadone) 30 mg PO DAILY [facility] Stop: 02/21/18 09:59 Methadone HCl (Methadose) 40 mg PO DAILY [facility] Stop: 02/23/18 09:59 Methadone HCl (Methadone) 50 mg PO DAILY [facility] Pantoprazole Sodium (Protonix Inj) 40 mg IVP Q12H [facility] Last Admin: 02/18/18 21:24 Dose: 40 mg Polyethylene Glycol (Miralax) 17 gm PO DAILY [facility] Last Admin: 02/18/18 09:57 Dose: Not Given Rosuvastatin Calcium (Crestor) 5 mg PO HS [facility] Last Admin: 02/18/18 21:25 Dose: 5 mg Sevelamer Carbonate (Renvela) 800 mg PO TIDCC [facility] Last Admin: 02/18/18 17:49 Dose: 800 mg Vitamin B Complex/Vit C/Folic Acid (Nephro-Andrew) 1 tab PO DAILY [facility] Last Admin: 02/18/18 09:56 Dose: 1 tab - Labs Labs: 02/17/18 10:22 02/17/18 10:22 PT 11.0 SECONDS (9.7-12.2) 02/12/18 16:18 INR 1.0 02/12/18 16:18 APTT 41 SECONDS (21-34) H 02/12/18 16:18 - Constitutional Appears: Non-toxic, No Acute Distress - Head Exam Head Exam: ATRAUMATIC, NORMOCEPHALIC - ENT Exam ENT Exam: Mucous Membranes Moist - Respiratory Exam Respiratory Exam: Clear to Ausculation Bilateral. absent: Accessory Muscle Use , Rales, Rhonchi, Wheezes, Respiratory Distress - Cardiovascular Exam Cardiovascular Exam: REGULAR RHYTHM, +S1, +S2. absent: Gallop, Rubs, Murmur - GI/Abdominal Exam GI & Abdominal Exam: Soft, Normal Bowel Sounds. absent: Distended, Firm, Guarding, Rigid, Tenderness, Organomegaly - Extremities Exam Extremities Exam: absent: Pedal Edema, Tenderness - Neurological Exam Neurological Exam: Alert, Awake, Oriented x3 - Psychiatric Exam Psychiatric exam: Normal Affect, Normal Mood - Skin Skin Exam: Dry, Intact, Normal Color, Warm Assessment and Plan - Assessment and Plan (Free Text) Assessment: GI bleed -No reported active bleeding today -Positive gastric occult blood on admission -Hgb 9.3 today, stable, s/p transfusion -Endoscopy shows gastritis and duodenitis, f/u biopsy -Colonoscopy showed solid stool -GI, Dr. Dsouza was consulted. signed off with no further recs ESRD on HD -HD on //S -Nephrology consulted, follow recommendations -Renvela 800mg po TID, nephrovite 1 tab po qd -Procrit 8000u Dyspnea -Douneb IH Q4 -Gentamicin 160mg IV given once, 80mg IV after dialysis , Monica, and S. Will reach out to ID, Dr. 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 -Cardiology consulted, follow recommendations -Pulmonology consulted, follow recommendations -Echo showed normal LVEF at 55%, mild AR/MR/TR, mildly dilated LA -Sputum culture positive for Klebsiella pneumoniae HTN -Coreg 6.25mg BID -Hydralazine 50mg BID -Losartan 50mg CAD -Will consider restarting aspirin today as pt had no bloody BM since admission -Coreg 6.25mg BID -Crestor 5mg Hx of Heroin abuse -Methadone [facility] Prophylactic measures -SCD, C/I for chemical DVT ppx due to GI bleed -Protonix IV -PT Dispo: social work consulted for d/c back to [facility] and to continue Gentamycin All management per Dr. France <Jenna France S - Last Filed: 02/19/18 23:51> Objective - Vital Signs/Intake and Output Vital Signs (last 24 hours): Temp Pulse Resp BP Pulse Ox 97.4 F L 58 L 20 152/81 H 100 02/19/18 15:00 02/19/18 15:00 02/19/18 15:00 02/19/18 18:08 02/19/18 15:00 - Medications Medications: Current Medications Amlodipine Besylate (Norvasc) 5 mg PO DAILY [facility] Last Admin: 02/19/18 11:29 Dose: 5 mg Carvedilol (Coreg) 6.25 mg PO BID [facility] Last Admin: 02/19/18 18:30 Dose: Not Given Epoetin Dami (Procrit) 8,000 u IV TTS [facility] Last Admin: 02/17/18 11:37 Dose: 8,000 u Ferrous Sulfate (Feosol) 325 mg PO DAILY [facility] Last Admin: 02/19/18 10:04 Dose: 325 mg Hydralazine HCl (Apresoline) 25 mg PO Q4 PRN PRN Reason: Other Last Admin: 02/19/18 11:29 Dose: 25 mg Hydralazine HCl (Apresoline) 100 mg PO BID [facility] Last Admin: 02/19/18 18:10 Dose: 100 mg Gentamicin Sulfate 80 mg/ (Sodium Chloride) 102 mls @ 100 mls/hr IVPB TuThSa [facility] PRN Reason: Protocol Last Admin: 02/17/18 14:21 Dose: 100 mls/hr Lactic Acid (Lac-Hydrin 12% Lotion (225 G)) 1 gm EXT DAILY [facility] Last Admin: 02/19/18 11:31 Dose: 1 applic Levetiracetam (Keppra) 500 mg PO Q12 [facility] Last Admin: 02/19/18 22:39 Dose: 500 mg Losartan Potassium (Cozaar) 100 mg PO QPM [facility] Last Admin: 02/19/18 18:10 Dose: 100 mg Methadone HCl (Methadone) 30 mg PO DAILY [facility] Stop: 02/21/18 09:59 Last Admin: 02/19/18 10:03 Dose: 30 mg Methadone HCl (Methadose) 40 mg PO DAILY [facility] Stop: 02/23/18 09:59 Methadone HCl (Methadone) 50 mg PO DAILY [facility] Oxycodone/Acetaminophen (Percocet 5/325 Mg Tab) 1 tab PO Q8 PRN PRN Reason: pain Stop: 02/22/18 22:01 Last Admin: 02/19/18 21:19 Dose: 1 tab Pantoprazole Sodium (Protonix Inj) 40 mg IVP Q12H [facility] Last Admin: 02/19/18 20:19 Dose: 40 mg Polyethylene Glycol (Miralax) 17 gm PO DAILY [facility] Last Admin: 02/19/18 11:25 Dose: Not Given Rosuvastatin Calcium (Crestor) 5 mg PO HS [facility] Last Admin: 02/19/18 22:39 Dose: 5 mg Sevelamer Carbonate (Renvela) 800 mg PO TIDCC [facility] Last Admin: 02/19/18 18:10 Dose: 800 mg Vitamin B Complex/Vit C/Folic Acid (Nephro-Andrew) 1 tab PO DAILY [facility] Last Admin: 02/19/18 09:59 Dose: 1 tab - Labs Labs: 02/17/18 10:22 02/17/18 10:22 PT 11.0 SECONDS (9.7-12.2) 02/12/18 16:18 INR 1.0 02/12/18 16:18 APTT 41 SECONDS (21-34) H 02/12/18 16:18 Assessment and Plan (1) CAD (coronary artery disease) Status: Acute (2) Dyspnea Status: Acute (3) ESRD (end stage renal disease) Status: Acute (4) Gastrointestinal hemorrhage Status: Acute (5) HTN (hypertension) Status: Acute Attending/Attestation - Attestation I have personally seen and examined this patient.: Yes I have fully participated in the care of the patient.: Yes I have reviewed all pertinent clinical information, including history, physical exam and plan: Yes Notes (Text): 02/19/18 23:51 case seen and d.w staff and resident, concurred with finding and management..
[2018-02-19] MEDS: POLYETHYLENE GLYCOL 3350 17 GM/Dose PACKET PO SCH (11:25)
[2018-02-19] MEDS: Ammonium Lactate 12% Lotion (225 g) EXT SCH (11:31)
[2018-02-19] MEDS ORDERED: Labetalol 25mg/5ml Syringe IVP ONE (12:15)
--- NOTE | 2018-02-19 15:17 | CP.PCM.PN ---
Subjective - Date & Time of Evaluation Date of Evaluation: 02/19/18 Time of Evaluation: 15:16 - Subjective Subjective: Nephrology Consultation Note: Assessment: stable Fluid overload with ? COPD exacerbation upper GI bleed Diabetic chronic Kidney Disease (E11.22) Hypertensive Chronic Kidney Disease (I12.0) End stage renal disease (N18.6) dependence on hemodialysis (Z99.2) (TTS) via AVF Anemia (D64.9), Hyperphosphatemia (E83.39), Secondary Hyperparathyroidism (E21.1 ), HTN (I12.0) CAD s/p CABG, DVT, Smoker Plan: Will plan for HD tomorrow as TTS schedule as ordered. Continue with Nephrovite 1 tab/day. PRBC as needed for anemia. On MINGO with HD as last Hb 9.3 Continue with phos binders as adjusted, last phos level 6 BP control with meds as ordered. Increased losartan 100 mg/day, changed hydralazine and coreg to bid. Increased hydralazine 100 bid and added norvasc 5 Glycemic control, Dialysis consistent diet Further work up/management as per primary team Dose meds/antibiotics (if needed) for ESRD status. Avoid fleets enema/magnesium based laxatives. appreciate GI input, pulmonary, ID consult Thanks for allowing me to participate in care of your patient. Will follow patient with you. Please call if any Qs Dr Lb West Office: [phone] Chief Complaint; none today HPI: Pt is a 52 F with hx of ESRD on hemodialysis (TTS) via AVF @ [facility] [place] with Dr Li , last dialysis sat, chronic anemia, hyperphosphatemia, secondary hyperparathyroidism, Diabetes Mellitus, hypertension, smoker, DVT, CAD s/p CABG presented with complaints of blood in vomitus. Renal consult requested for ESRD management. pt c/o SOB and leg swelling no further blood in vomitus ROS: she feels much better Cardiovascular: No chest pain. Pulmonary: denies shortness of breath Gastrointestinal: denies abdominal pain No nausea. no vomiting. Genitourinary: No pain while urinating. Denies blood in urine. All other negative except as mentioned in HPI. reported weight loss Physical Examination: General Appearance: Comfortable, in no acute respiratory distress, co-operative . Vitals reviewed and noted as below Head; Atraumatic, normocephalic ENT: no ulcers no thrush. Tongue is midline. Oropharynx: no rash or ulcers. EYES: Pupils are equal, round and reactive to light accommodation. Eye muscles and extraocular movement intact. Sclera is anicteric. Neck; supple no lymphadenopathy, no thyromegaly or bruit Lungs: Normal respiratory rate/effort. Breath sounds bilateral equal and clear Heart: Normal rate. s1s2 normal. No rub or gallop. Extremities: trace edema. No varicose veins Neurological: Patient is alert, awake and oriented to person, place and time. No focal deficit. Strength bilateral appropriate and equal Skin: Warm and dry. Normal turgor. No rash. Palpitation: Normal elasticity for age Abdomen: Abdomen is soft. Bowel sounds +. There is no abdominal tenderness, no guarding/rigidity or organomegaly Psych: normal insight and normal affect/mood MSK: no joint tenderness or swelling. Digits and nails normal, no deformity : kidney or bladder not palpable Access: AVF Labs/imaging reviewed. Past medical history, past surgical history, family history, social history, allergy reviewed and noted as below Family Hx: no hx of CKD. Non contributory Objective - Vital Signs/Intake and Output Vital Signs (last 24 hours): Temp Pulse Resp BP Pulse Ox 97.9 F 59 L 18 192/69 H 98 02/19/18 09:03 02/19/18 12:24 02/19/18 09:03 02/19/18 12:24 02/19/18 09:03 Intake and Output: 02/19/18 02/19/18 06:59 18:59 Intake Total 600 Balance 600 - Medications Medications: Current Medications Albuterol/Ipratropium (Duoneb 3 Mg/0.5 Mg (3 Ml) Ud) 3 ml IH RQ4 [facility] Last Admin: 02/19/18 13:23 Dose: Not Given Amlodipine Besylate (Norvasc) 5 mg PO DAILY [facility] Last Admin: 02/19/18 11:29 Dose: 5 mg Carvedilol (Coreg) 6.25 mg PO BID [facility] Last Admin: 02/19/18 10:04 Dose: 6.25 mg Epoetin Dami (Procrit) 8,000 u IV TTS [facility] Last Admin: 02/17/18 11:37 Dose: 8,000 u Ferrous Sulfate (Feosol) 325 mg PO DAILY [facility] Last Admin: 02/19/18 10:04 Dose: 325 mg Hydralazine HCl (Apresoline) 25 mg PO Q4 PRN PRN Reason: Other Last Admin: 02/19/18 11:29 Dose: 25 mg Hydralazine HCl (Apresoline) 100 mg PO BID [facility] Last Admin: 02/19/18 11:24 Dose: Not Given Gentamicin Sulfate 80 mg/ (Sodium Chloride) 102 mls @ 100 mls/hr IVPB TuThSa [facility] PRN Reason: Protocol Last Admin: 02/17/18 14:21 Dose: 100 mls/hr Lactic Acid (Lac-Hydrin 12% Lotion (225 G)) 1 gm EXT DAILY [facility] Last Admin: 02/19/18 11:31 Dose: 1 applic Levetiracetam (Keppra) 500 mg PO Q12 [facility] Last Admin: 02/19/18 10:04 Dose: 500 mg Losartan Potassium (Cozaar) 100 mg PO QPM [facility] Last Admin: 02/18/18 17:50 Dose: 100 mg Methadone HCl (Methadone) 30 mg PO DAILY [facility] Stop: 02/21/18 09:59 Last Admin: 02/19/18 10:03 Dose: 30 mg Methadone HCl (Methadose) 40 mg PO DAILY [facility] Stop: 02/23/18 09:59 Methadone HCl (Methadone) 50 mg PO DAILY [facility] Pantoprazole Sodium (Protonix Inj) 40 mg IVP Q12H [facility] Last Admin: 02/19/18 10:09 Dose: 40 mg Polyethylene Glycol (Miralax) 17 gm PO DAILY [facility] Last Admin: 02/19/18 11:25 Dose: Not Given Rosuvastatin Calcium (Crestor) 5 mg PO HS [facility] Last Admin: 02/18/18 21:25 Dose: 5 mg Sevelamer Carbonate (Renvela) 800 mg PO TIDCC [facility] Last Admin: 02/19/18 12:20 Dose: 800 mg Vitamin B Complex/Vit C/Folic Acid (Nephro-Andrew) 1 tab PO DAILY [facility] Last Admin: 02/19/18 09:59 Dose: 1 tab - Labs Labs: 02/17/18 10:22 02/17/18 10:22 PT 11.0 SECONDS (9.7-12.2) 02/12/18 16:18 INR 1.0 02/12/18 16:18 APTT 41 SECONDS (21-34) H 02/12/18 16:18
--- NOTE | 2018-02-19 19:23 | CP.PCM.PN ---
Subjective - Date & Time of Evaluation Date of Evaluation: 02/19/18 Time of Evaluation: 11:00 - Subjective Subjective: clinically same Objective - Vital Signs/Intake and Output Vital Signs (last 24 hours): Temp Pulse Resp BP Pulse Ox 97.4 F L 58 L 20 152/81 H 100 02/19/18 15:00 02/19/18 15:00 02/19/18 15:00 02/19/18 18:08 02/19/18 15:00 - Medications Medications: Current Medications Amlodipine Besylate (Norvasc) 5 mg PO DAILY [facility] Last Admin: 02/19/18 11:29 Dose: 5 mg Carvedilol (Coreg) 6.25 mg PO BID [facility] Last Admin: 02/19/18 10:04 Dose: 6.25 mg Epoetin Dami (Procrit) 8,000 u IV TTS [facility] Last Admin: 02/17/18 11:37 Dose: 8,000 u Ferrous Sulfate (Feosol) 325 mg PO DAILY [facility] Last Admin: 02/19/18 10:04 Dose: 325 mg Hydralazine HCl (Apresoline) 25 mg PO Q4 PRN PRN Reason: Other Last Admin: 02/19/18 11:29 Dose: 25 mg Hydralazine HCl (Apresoline) 100 mg PO BID [facility] Last Admin: 02/19/18 18:10 Dose: 100 mg Gentamicin Sulfate 80 mg/ (Sodium Chloride) 102 mls @ 100 mls/hr IVPB TuThSa [facility] PRN Reason: Protocol Last Admin: 02/17/18 14:21 Dose: 100 mls/hr Lactic Acid (Lac-Hydrin 12% Lotion (225 G)) 1 gm EXT DAILY [facility] Last Admin: 02/19/18 11:31 Dose: 1 applic Levetiracetam (Keppra) 500 mg PO Q12 [facility] Last Admin: 02/19/18 10:04 Dose: 500 mg Losartan Potassium (Cozaar) 100 mg PO QPM [facility] Last Admin: 02/19/18 18:10 Dose: 100 mg Methadone HCl (Methadone) 30 mg PO DAILY [facility] Stop: 02/21/18 09:59 Last Admin: 02/19/18 10:03 Dose: 30 mg Methadone HCl (Methadose) 40 mg PO DAILY [facility] Stop: 02/23/18 09:59 Methadone HCl (Methadone) 50 mg PO DAILY [facility] Pantoprazole Sodium (Protonix Inj) 40 mg IVP Q12H [facility] Last Admin: 02/19/18 10:09 Dose: 40 mg Polyethylene Glycol (Miralax) 17 gm PO DAILY [facility] Last Admin: 02/19/18 11:25 Dose: Not Given Rosuvastatin Calcium (Crestor) 5 mg PO HS [facility] Last Admin: 02/18/18 21:25 Dose: 5 mg Sevelamer Carbonate (Renvela) 800 mg PO TIDCC [facility] Last Admin: 02/19/18 18:10 Dose: 800 mg Vitamin B Complex/Vit C/Folic Acid (Nephro-Andrew) 1 tab PO DAILY [facility] Last Admin: 02/19/18 09:59 Dose: 1 tab - Labs Labs: 02/17/18 10:22 02/17/18 10:22 PT 11.0 SECONDS (9.7-12.2) 02/12/18 16:18 INR 1.0 02/12/18 16:18 APTT 41 SECONDS (21-34) H 02/12/18 16:18 - Constitutional Appears: Well - Head Exam Head Exam: ATRAUMATIC, NORMAL INSPECTION, NORMOCEPHALIC - Eye Exam Eye Exam: EOMI, Normal appearance, PERRL Pupil Exam: NORMAL ACCOMODATION, PERRL - ENT Exam ENT Exam: Mucous Membranes Moist, Normal Exam - Neck Exam Neck Exam: Full ROM, Normal Inspection. absent: Lymphadenopathy - Respiratory Exam Respiratory Exam: Decreased Breath Sounds - Cardiovascular Exam Cardiovascular Exam: REGULAR RHYTHM, +S1, +S2 - GI/Abdominal Exam GI & Abdominal Exam: Soft, Diminished Bowel Sounds - Rectal Exam Rectal Exam: Deferred Assessment and Plan (1) CAD (coronary artery disease) Status: Acute (2) Dyspnea Status: Acute (3) ESRD (end stage renal disease) Status: Acute (4) Gastrointestinal hemorrhage Status: Acute (5) HTN (hypertension) Status: Acute - Assessment and Plan (Free Text) Plan: GI bleed -No reported active bleeding today -Positive gastric occult blood on admission -Hgb 9.3 today, stable, s/p transfusion -Endoscopy shows gastritis and duodenitis, f/u biopsy -Colonoscopy showed solid stool -GI, Dr. Dsouza was consulted. signed off with no further recs ESRD on HD -HD on / -Nephrology consulted, follow recommendations -Renvela 800mg po TID, nephrovite 1 tab po qd -Procrit 8000u Dyspnea -Douneb IH Q4 -Gentamicin 160mg IV given once, 80mg IV after dialysis , Monica, and S. Will reach out to IDDr. 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
[2018-02-19] MEDS ORDERED: Oxycodone/Acetaminophen 5/325 mg Tab PO PRN (21:05)
[2018-02-20 09:38] LABS: BASO # 0.1 K/uL (0.0-0.2); BASO % 0.7 % (0.0-2.0); EOS # 0.1 K/uL (0.0-0.7); EOS % 1.6 % (0.0-4.0); HEMOGLOBIN 9.5 g/dL (11.0-16.0); LYMPH # 1.1 K/uL (1.0-4.3); LYMPH % 13.6 % (20.0-40.0); MEAN CELL VOLUME 89.9 fL (81.0-99.0); MEAN CORPUSCULAR HGB CONC 32.2 g/dL (33.0-37.0); MEAN PLATELET VOLUME 7.6 fL (7.2-11.7); MONO # 0.5 K/uL (0.0-0.8); NEUT # 6.2 K/uL (1.8-7.0); NEUT % 78.1 % (50.0-75.0); RBC 3.29 Mil/uL (3.80-5.20); RED CELL DISTRIBUTION WIDTH 18.2 % (11.5-14.5)
[2018-02-20 10:10] LABS: ALB/GLOB RATIO 0.9 (1.0-2.1); ALBUMIN 3.4 g/dL (3.5-5.0); CALCIUM 9.1 mg/dl (8.6-10.4)
--- NOTE | 2018-02-20 11:31 | CP.PCM.PN ---
Subjective - Date & Time of Evaluation Date of Evaluation: 02/20/18 Time of Evaluation: 11:30 - Subjective Subjective: Nephrology Consultation Note: Assessment: stable Fluid overload with COPD exacerbation upper GI bleed uncontrolled severe HTN Diabetic chronic Kidney Disease (E11.22) Hypertensive Chronic Kidney Disease (I12.0) End stage renal disease (N18.6) dependence on hemodialysis (Z99.2) (TTS) via AVF Anemia (D64.9), Hyperphosphatemia (E83.39), Secondary Hyperparathyroidism (E21.1 ), HTN (I12.0) CAD s/p CABG, DVT, Smoker Plan: Will plan for HD today as TTS schedule as ordered (UF goal 4 Kgs). Continue with Nephrovite 1 tab/day. PRBC as needed for anemia. On MINGO with HD as last Hb 9.3 Continue with phos binders as adjusted, last phos level 6 BP control with meds as ordered. Increased losartan 100 mg/day, changed hydralazine and coreg to bid. Increased hydralazine 100 bid and added norvasc 10 mg Glycemic control, Dialysis consistent diet Further work up/management as per primary team Dose meds/antibiotics (if needed) for ESRD status. Avoid fleets enema/magnesium based laxatives. appreciate GI input, pulmonary, ID consult Thanks for allowing me to participate in care of your patient. Will follow patient with you. Please call if any Qs Dr Lb West Office: [phone] Chief Complaint; none today HPI: Pt is a 52 F with hx of ESRD on hemodialysis (TTS) via AVF @ [facility] with Dr Li , last dialysis sat, chronic anemia, hyperphosphatemia, secondary hyperparathyroidism, Diabetes Mellitus, hypertension, smoker, DVT, CAD s/p CABG presented with complaints of blood in vomitus. Renal consult requested for ESRD management. pt c/o SOB and leg swelling no further blood in vomitus ROS: she feels much better Cardiovascular: No chest pain. Pulmonary: denies shortness of breath Gastrointestinal: denies abdominal pain No nausea. no vomiting. Genitourinary: No pain while urinating. Denies blood in urine. All other negative except as mentioned in HPI. reported weight loss Physical Examination: seen on HD General Appearance: Comfortable, in no acute respiratory distress, co-operative . Vitals reviewed and noted as below Head; Atraumatic, normocephalic ENT: no ulcers no thrush. Tongue is midline. Oropharynx: no rash or ulcers. EYES: Pupils are equal, round and reactive to light accommodation. Eye muscles and extraocular movement intact. Sclera is anicteric. Neck; supple no lymphadenopathy, no thyromegaly or bruit Lungs: Normal respiratory rate/effort. Breath sounds bilateral equal and clear Heart: Normal rate. s1s2 normal. No rub or gallop. Extremities: trace edema. No varicose veins Neurological: Patient is alert, awake and oriented to person, place and time. No focal deficit. Strength bilateral appropriate and equal Skin: Warm and dry. Normal turgor. No rash. Palpitation: Normal elasticity for age Abdomen: Abdomen is soft. Bowel sounds +. There is no abdominal tenderness, no guarding/rigidity or organomegaly Psych: normal insight and normal affect/mood MSK: no joint tenderness or swelling. Digits and nails normal, no deformity : kidney or bladder not palpable Access: AVF Labs/imaging reviewed. Past medical history, past surgical history, family history, social history, allergy reviewed and noted as below Family Hx: no hx of CKD. Non contributory Objective - Vital Signs/Intake and Output Vital Signs (last 24 hours): Temp Pulse Resp BP Pulse Ox 97.5 F L 69 18 184/79 H 100 02/20/18 09:15 02/20/18 11:20 02/20/18 09:15 02/20/18 11:20 02/20/18 09:15 Intake and Output: 02/20/18 02/20/18 06:59 18:59 Intake Total 300 Balance 300 - Medications Medications: Current Medications Amlodipine Besylate (Norvasc) 10 mg PO QPM [facility] Carvedilol (Coreg) 12.5 mg PO BID [facility] Epoetin Dami (Procrit) 8,000 u IV TTS [facility] Last Admin: 02/17/18 11:37 Dose: 8,000 u Ferrous Sulfate (Feosol) 325 mg PO DAILY [facility] Last Admin: 02/19/18 10:04 Dose: 325 mg Hydralazine HCl (Apresoline) 25 mg PO Q4 PRN PRN Reason: Other Last Admin: 02/19/18 11:29 Dose: 25 mg Hydralazine HCl (Apresoline) 100 mg PO BID [facility] Last Admin: 02/19/18 18:10 Dose: 100 mg Gentamicin Sulfate 80 mg/ (Sodium Chloride) 102 mls @ 100 mls/hr IVPB TuThSa [facility] PRN Reason: Protocol Last Admin: 02/17/18 14:21 Dose: 100 mls/hr Lactic Acid (Lac-Hydrin 12% Lotion (225 G)) 1 gm EXT DAILY [facility] Last Admin: 02/19/18 11:31 Dose: 1 applic Levetiracetam (Keppra) 500 mg PO Q12 [facility] Last Admin: 02/19/18 22:39 Dose: 500 mg Losartan Potassium (Cozaar) 100 mg PO QPM [facility] Last Admin: 02/19/18 18:10 Dose: 100 mg Methadone HCl (Methadone) 30 mg PO DAILY [facility] Stop: 02/21/18 09:59 Last Admin: 02/19/18 10:03 Dose: 30 mg Methadone HCl (Methadose) 40 mg PO DAILY [facility] Stop: 02/23/18 09:59 Methadone HCl (Methadone) 50 mg PO DAILY [facility] Oxycodone/Acetaminophen (Percocet 5/325 Mg Tab) 1 tab PO Q8 PRN PRN Reason: pain Stop: 02/22/18 22:01 Last Admin: 02/19/18 21:19 Dose: 1 tab Pantoprazole Sodium (Protonix Inj) 40 mg IVP Q12H [facility] Last Admin: 02/20/18 08:43 Dose: 40 mg Polyethylene Glycol (Miralax) 17 gm PO DAILY [facility] Last Admin: 02/19/18 11:25 Dose: Not Given Rosuvastatin Calcium (Crestor) 5 mg PO HS [facility] Last Admin: 02/19/18 22:39 Dose: 5 mg Sevelamer Carbonate (Renvela) 800 mg PO TIDCC [facility] Last Admin: 02/20/18 08:43 Dose: 800 mg Vitamin B Complex/Vit C/Folic Acid (Nephro-Andrew) 1 tab PO DAILY [facility] Last Admin: 02/19/18 09:59 Dose: 1 tab - Labs Labs: 02/20/18 09:33 02/20/18 09:33 PT 11.0 SECONDS (9.7-12.2) 02/12/18 16:18 INR 1.0 02/12/18 16:18 APTT 41 SECONDS (21-34) H 02/12/18 16:18
[2018-02-20] MEDS: Epoetin Alfa Dialysis 2000 U/ML Inj IV SCH (13:00)
--- NOTE | 2018-02-20 13:10 | CP.PCM.PN ---
Subjective - Date & Time of Evaluation Date of Evaluation: 02/20/18 Time of Evaluation: 13:09 - Subjective Subjective: PGY2 Note for Dr. Jamshid France Patient seen and examined at bedside this morning; has no complaints; [facility]. Objective - Vital Signs/Intake and Output Vital Signs (last 24 hours): Temp Pulse Resp BP Pulse Ox 97.5 F L 69 18 184/79 H 100 02/20/18 09:15 02/20/18 11:20 02/20/18 09:15 02/20/18 11:20 02/20/18 09:15 Intake and Output: 02/20/18 02/20/18 06:59 18:59 Intake Total 300 Balance 300 - Medications Medications: Current Medications Amlodipine Besylate (Norvasc) 10 mg PO QPM [facility] Carvedilol (Coreg) 12.5 mg PO BID [facility] Epoetin Dami (Procrit) 8,000 u IV TTS [facility] Last Admin: 02/17/18 11:37 Dose: 8,000 u Ferrous Sulfate (Feosol) 325 mg PO DAILY [facility] Last Admin: 02/19/18 10:04 Dose: 325 mg Hydralazine HCl (Apresoline) 25 mg PO Q4 PRN PRN Reason: Other Last Admin: 02/19/18 11:29 Dose: 25 mg Hydralazine HCl (Apresoline) 100 mg PO BID [facility] Last Admin: 02/19/18 18:10 Dose: 100 mg Gentamicin Sulfate 80 mg/ (Sodium Chloride) 102 mls @ 100 mls/hr IVPB TuThSa [facility] PRN Reason: Protocol Last Admin: 02/17/18 14:21 Dose: 100 mls/hr Lactic Acid (Lac-Hydrin 12% Lotion (225 G)) 1 gm EXT DAILY [facility] Last Admin: 02/19/18 11:31 Dose: 1 applic Levetiracetam (Keppra) 500 mg PO Q12 [facility] Last Admin: 02/19/18 22:39 Dose: 500 mg Losartan Potassium (Cozaar) 100 mg PO QPM [facility] Last Admin: 02/19/18 18:10 Dose: 100 mg Methadone HCl (Methadone) 30 mg PO DAILY [facility] Stop: 02/21/18 09:59 Last Admin: 02/19/18 10:03 Dose: 30 mg Methadone HCl (Methadose) 40 mg PO DAILY [facility] Stop: 02/23/18 09:59 Methadone HCl (Methadone) 50 mg PO DAILY [facility] Oxycodone/Acetaminophen (Percocet 5/325 Mg Tab) 1 tab PO Q8 PRN PRN Reason: pain Stop: 02/22/18 22:01 Last Admin: 02/19/18 21:19 Dose: 1 tab Pantoprazole Sodium (Protonix Inj) 40 mg IVP Q12H [facility] Last Admin: 02/20/18 08:43 Dose: 40 mg Polyethylene Glycol (Miralax) 17 gm PO DAILY [facility] Last Admin: 02/19/18 11:25 Dose: Not Given Rosuvastatin Calcium (Crestor) 5 mg PO HS [facility] Last Admin: 02/19/18 22:39 Dose: 5 mg Sevelamer Carbonate (Renvela) 800 mg PO TIDCC [facility] Last Admin: 02/20/18 08:43 Dose: 800 mg Vitamin B Complex/Vit C/Folic Acid (Nephro-Andrew) 1 tab PO DAILY [facility] Last Admin: 02/19/18 09:59 Dose: 1 tab - Labs Labs: 02/20/18 09:33 02/20/18 09:33 PT 11.0 SECONDS (9.7-12.2) 02/12/18 16:18 INR 1.0 02/12/18 16:18 APTT 41 SECONDS (21-34) H 02/12/18 16:18 Assessment and Plan - Assessment and Plan (Free Text) Assessment: Appears: Non-toxic, No Acute Distress - Head Exam Head Exam: ATRAUMATIC, NORMOCEPHALIC - ENT Exam ENT Exam: Mucous Membranes Moist - Respiratory Exam Respiratory Exam: Clear to Ausculation Bilateral. absent: Accessory Muscle Use , Rales, Rhonchi, Wheezes, Respiratory Distress - Cardiovascular Exam Cardiovascular Exam: REGULAR RHYTHM, +S1, +S2. absent: Gallop, Rubs, Murmur - GI/Abdominal Exam GI & Abdominal Exam: Soft, Normal Bowel Sounds. absent: Distended, Firm, Guarding, Rigid, Tenderness, Organomegaly - Extremities Exam Extremities Exam: absent: Pedal Edema, Tenderness - Neurological Exam Neurological Exam: Alert, Awake, Oriented x3 - Psychiatric Exam Psychiatric exam: Normal Affect, Normal Mood - Skin Skin Exam: Dry, Intact, Normal Color, Warm Assessment and Plan - Assessment and Plan (Free Text) Assessment: GI bleed -No reported active bleeding today -Positive gastric occult blood on admission -Hgb 9.3 today, stable, s/p transfusion -Endoscopy shows gastritis and duodenitis, f/u biopsy -Colonoscopy showed solid stool -GI, Dr. Dsouza was consulted. signed off with no further recs ESRD on HD -HD on //S -Nephrology consulted, follow recommendations -Renvela 800mg po TID, nephrovite 1 tab po qd -Procrit 8000u Dyspnea -Douneb IH Q4 -Gentamicin 160mg IV given once, 80mg IV after dialysis , Monica, and S. Will reach out to ID, Dr. 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 -Cardiology consulted, follow recommendations -Pulmonology consulted, follow recommendations -Echo showed normal LVEF at 55%, mild AR/MR/TR, mildly dilated LA -Sputum culture positive for Klebsiella pneumoniae HTN -Coreg 6.25mg BID -Hydralazine 50mg BID -Losartan 50mg CAD -Will consider restarting aspirin today as pt had no bloody BM since admission -Coreg 6.25mg BID -Crestor 5mg Hx of Heroin abuse -Methadone romeo Prophylactic measures -SCD, C/I for chemical DVT ppx due to GI bleed -Protonix IV -PT Dispo: social work consulted for d/c back to [facility] and to continue Gentamycin All management per Dr. France
[2018-02-20 13:57] VITALS: RESP 20
[2018-02-20] MEDS: Multivitamin Vitamin B Complex (Nephro-Vite) Tab PO SCH (13:57)
[2018-02-20] MEDS: Ammonium Lactate 12% Lotion (225 g) EXT SCH (14:00)
[2018-02-20] MEDS: POLYETHYLENE GLYCOL 3350 17 GM/Dose PACKET PO SCH (14:01)
[2018-02-20 16:05] VITALS: BP 167/70; TEMP 98.3; O2SAT 99
--- NOTE | 2018-02-20 16:35 | CP.PCM.PN ---
Subjective - Date & Time of Evaluation Date of Evaluation: 02/20/18 Time of Evaluation: 11:20 - Subjective Subjective: clinically same Objective - Vital Signs/Intake and Output Vital Signs (last 24 hours): Temp Pulse Resp BP Pulse Ox 98.3 F 63 20 167/70 H 99 02/20/18 15:00 02/20/18 15:00 02/20/18 15:00 02/20/18 15:00 02/20/18 15:00 Intake and Output: 02/20/18 02/20/18 06:59 18:59 Intake Total 300 350 Balance 300 350 - Labs Labs: 02/20/18 09:33 02/20/18 09:33 PT 11.0 SECONDS (9.7-12.2) 02/12/18 16:18 INR 1.0 02/12/18 16:18 APTT 41 SECONDS (21-34) H 02/12/18 16:18 - Constitutional Appears: Well - Head Exam Head Exam: ATRAUMATIC, NORMAL INSPECTION, NORMOCEPHALIC - Eye Exam Eye Exam: EOMI, Normal appearance, PERRL Pupil Exam: NORMAL ACCOMODATION, PERRL - ENT Exam ENT Exam: Mucous Membranes Moist, Normal Exam - Neck Exam Neck Exam: Full ROM, Normal Inspection. absent: Lymphadenopathy - Respiratory Exam Respiratory Exam: Decreased Breath Sounds - Cardiovascular Exam Cardiovascular Exam: REGULAR RHYTHM, +S1, +S2 - GI/Abdominal Exam GI & Abdominal Exam: Soft, Diminished Bowel Sounds - Rectal Exam Rectal Exam: Deferred Assessment and Plan (1) CAD (coronary artery disease) Status: Acute (2) Dyspnea Status: Acute (3) ESRD (end stage renal disease) Status: Acute (4) Gastrointestinal hemorrhage Status: Acute (5) HTN (hypertension) Status: Acute
[2018-02-20 21:54] VITALS: PULSE 70
[2018-02-21] MEDS ORDERED: Methadone 40 mg Tab PO SCH (10:00)
== END 2018-02-20 16:19 | DRG 174 ==
LOC: C.ER 14:47 → C.9E 17:04 → C.6T 18:39
PROVIDERS: ADMIT Internal Medicine Nephrology; ATTEND Internal Medicine Nephrology
PROC: 0DB98ZX Excision of Duodenum, Via Natural or Artificial Opening Endoscopic, Diagnostic (ICD-10-PCS; 2018-02-14)
PROC: 0DB68ZX Excision of Stomach, Via Natural or Artificial Opening Endoscopic, Diagnostic (ICD-10-PCS; 2018-02-14)
PROC: 30233N1 Transfusion of Nonautologous Red Blood Cells into Peripheral Vein, Percutaneous Approach (ICD-10-PCS; principal; 2018-02-14 09:13)
PROC: 5A1D70Z Performance of Urinary Filtration, Intermittent, Less than 6 Hours Per Day (ICD-10-PCS; 2018-02-15)
PROC: 0DJD8ZZ Inspection of Lower Intestinal Tract, Via Natural or Artificial Opening Endoscopic (ICD-10-PCS; 2018-02-16)
DX: K92.2 Gastrointestinal hemorrhage, unspecified (principal); E87.70 Fluid overload, unspecified; J44.1 Chronic obstructive pulmonary disease with (acute) exacerbation; N18.6 End stage renal disease; E11.51 Type 2 diabetes mellitus with diabetic peripheral angiopathy without gangrene; E11.22 Type 2 diabetes mellitus with diabetic chronic kidney disease; K29.80 Duodenitis without bleeding; K29.70 Gastritis, unspecified, without bleeding; F11.10 Opioid abuse, uncomplicated; I13.2 Hypertensive heart and chronic kidney disease with heart failure and with stage 5 chronic kidney disease, or end stage renal disease; I50.9 Heart failure, unspecified; D63.8 Anemia in other chronic diseases classified elsewhere; E83.39 Other disorders of phosphorus metabolism; F17.210 Nicotine dependence, cigarettes, uncomplicated; I25.10 Atherosclerotic heart disease of native coronary artery without angina pectoris; R63.4 Abnormal weight loss; L85.9 Epidermal thickening, unspecified; K21.9 Gastro-esophageal reflux disease without esophagitis; N25.81 Secondary hyperparathyroidism of renal origin; R04.0 Epistaxis; Z79.4 Long term (current) use of insulin; Z99.2 Dependence on renal dialysis; Z86.73 Personal history of transient ischemic attack (TIA), and cerebral infarction without residual deficits; Z95.1 Presence of aortocoronary bypass graft; Z79.01 Long term (current) use of anticoagulants; Z86.718 Personal history of other venous thrombosis and embolism

== ENCOUNTER 2018-06-18 21:59 | Emergency (ER) | payer OTHER ==
[2018-06-18 22:17] VITALS: O2SAT 97
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
[2018-06-19 01:45] VITALS: BP 152/62; PULSE 63; RESP 18; TEMP 99.6
== END 2018-06-19 02:32 | disposition home or self-care (01) ==
LOC: C.ER 21:59
DX: Z00.00 Encounter for general adult medical examination without abnormal findings (principal)

== ENCOUNTER 2018-12-06 10:32 | Emergency (ER) | payer OTHER ==
[2018-12-06 10:55] VITALS: RESP 20
--- NOTE | 2018-12-06 12:10 | CT ---
Date of service: 12/06/2018 PROCEDURE: CT HEAD WITHOUT CONTRAST. HISTORY: s/p fall COMPARISON: None available. TECHNIQUE: Axial computed tomography images were obtained through the head/brain without intravenous contrast. Radiation dose: Total exam DLP = 881.48 mGy-cm. This CT exam was performed using one or more of the following dose reduction techniques: Automated exposure control, adjustment of the mA and/or kV according to patient size, and/or use of iterative reconstruction technique. FINDINGS: HEMORRHAGE: No intracranial hemorrhage. BRAIN: There is cystic encephalomalacia in the left frontal lobe with volume loss and ex vacuo dilatation of the left lateral ventricle. There are chronic infarctions in the right posterior parietal and occipital lobes and bilateral posterior inferior cerebellar hemispheres. There is Wallerian degeneration of the left pyramidal tract. The chronic lacunar infarctions in the right basal ganglia and left thalamus. There is no mass, mass effect or abnormal extra-axial fluid collection. VENTRICLES: There is mild age-related global parenchymal volume loss and proportionate enlargement of the ventricles and cortical sulci. CALVARIUM: There is no calvarial fracture or extracranial soft tissue swelling. PARANASAL SINUSES: Predominantly clear. MASTOID AIR CELLS: Predominantly clear. OTHER FINDINGS: None. IMPRESSION: No acute intracranial abnormality. Multifocal chronic infarctions and cystic encephalomalacia in the left frontal lobe with Wallerian degeneration of the left pyramidal tract, sequela of remote infarctions. Chronic lacunar infarctions in the right basal ganglia and left thalamus.
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
--- NOTE | 2018-12-06 12:38 | RAD ---
Date of service: 12/06/2018 PROCEDURE: Right Knee Radiographs. HISTORY: s/p fall; h/o below knee amputation COMPARISON: None. FINDINGS: BONES: There is severe bone demineralization. There is no acute displaced fracture or bone destruction. Bone alignment is normal. Status post below-knee amputation. JOINTS: There is mild tricompartmental degenerative osteoarthrosis with reduced joint spaces, marginal osteophytes and tibial spiking, worse in the medial compartment. JOINT EFFUSION: There is a large suprapatellar joint effusion. OTHER FINDINGS: There are atherosclerotic vascular calcification and superficial femoral and superficial femoral endovascular stent graft in place. IMPRESSION: No acute displaced fracture or dislocation. Large suprapatellar joint effusion.
[2018-12-06 13:19] VITALS: BP 188/73; PULSE 66; TEMP 98.4
[2018-12-06 19:35] VITALS: O2SAT 100
== END 2018-12-06 13:58 | disposition home or self-care (01) ==
LOC: C.ER 10:32
DX: M25.461 Effusion, right knee (principal); S09.90XA Unspecified injury of head, initial encounter; W19.XXXA Unspecified fall, initial encounter